=== PATIENT | male | born 1950 | race Caucasian/White ===

== ENCOUNTER 2016-03-15 08:06 | Emergency (ER) | payer BC ==
[2016-03-15 08:21] VITALS: BP 105/60
--- NOTE | 2016-03-15 08:28 | UC ---
Respiratory Complaint HPI - HPI Summary HPI Summary: The patient comes in today for: 1. Cough: Onset: 2 days ago. Palliative/provocative: Nothing makes the cough better or worse. Quality: Dry, harsh Region: Lungs. Severity: 7/10 Time: Cough lasts a few seconds. Associated symptoms: Chest pain: Only rib pain with cough. Sleep apnea: Present. Lung disease: None. Fevers: None. Cough production: None. Rhinitis: None. Dyspnea: Present. Wheezing: Present. Prednisone: He has been on this before, but he can't remember the dosing or strength. However, he remembers that it did not cause problems with his diabetes. 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 - Allergies/Home Medications Allergies/Adverse Reactions: Allergies Allergy/AdvReac Type Severity Reaction Status Date / Time Oxycodone [From Percocet] Allergy Severe Swelling Verified 03/15/16 08:09 Of Face,Lips,& Throat Home Medications: Home Medications Diltiazem HCl Coated Beads [Cartia Xt] 180 mg PO DAILY 03/15/16 [History Confirmed 03/15/16] Furosemide TAB* [Lasix TAB*] 40 mg PO DAILY 03/15/16 [History Confirmed 03/15/16 ] Metoprolol Tartrate TAB* [Lopressor TAB*] 50 mg PO BID 03/15/16 [History Confirmed 03/15/16] Ramipril CAP* [Altace CAP*] 2.5 mg PO DAILY 03/15/16 [History Confirmed 03/15/16 ] Warfarin TAB(*) [Coumadin TAB(*)] 5 mg PO QPM 03/15/16 [History Confirmed ] PMH/Surg Hx/FS Hx/Imm Hx Previously Healthy: No Endocrine History Of: Reports: Diabetes - Type II Denies: Thyroid Disease, Hyperthyroidism, Hypothyroidism, Dyslipidemia Cardiovascular History Of: Reports: Cardiac Disorders - CHF, but no hx of [place], angina, bypass or stents., Congestive Heart Failure, Atrial Fibrillation Denies: Hypertension, Pacemaker/ICD, Myocardial Infarction, Deep Vein Thrombosis, Bleeding Disorders Respiratory History Of: Reports: COPD - He was told that he had COPD, but lung specialist said no. Denies: Asthma, Bronchitis, Pneumonia, Pulmonary Embolism GI/ History Of: Denies: Gastroesophageal Reflux, Ulcer, Gastrointestinal Bleed, Gall Bladder Disease, Kidney Stones, Diverticulitis, Renal Disease, Urosepsis Neurological History Of: Denies: TIA, CVA, Dementia, Seizures, Migraine Psychological History Of: Denies: Anxiety, Depression, Bipolar Disorder, Schizophrenia, Post Traumatic Stress Disorder Cancer History Of: Denies: Lung Cancer, Colorectal Cancer, Breast Cancer, Prostate Cancer, Cervical Cancer Other History Of: Anticoagulant Therapy - Coumadin. Negative For: HIV, Hepatitis B, Hepatitis C - Surgical History Surgical History: Yes Surgery Procedure, Year, and Place: Both knees, L carpel tunnel, uvula removed, L foot - Family History Known Family History: Positive: Diabetes Negative: Cardiac Disease, Hypertension - Social History Occupation: Retired Lives: With Family Alcohol Use: None Substance Use Type: None Smoking Status (MU): Heavy Every Day Tobacco Smoker Type: Cigarettes Amount Used/How Often: 1/2 ppd Length of Time of Smoking/Using Tobacco: 40 + yrs Have You Smoked in the Last Year: Yes - Immunization History Most Recent Influenza Vaccination: 2016 Review of Systems Constitutional: Negative Skin: Negative Eyes: Negative ENT: Negative Respiratory: Cough Cardiovascular: Negative Gastrointestinal: Negative Genitourinary: Negative All Other Systems Reviewed And Are Negative: Yes Physical Exam Triage Information Reviewed: Yes Appearance: Well-Appearing, No Pain Distress, Well-Nourished, Obese Vital Signs: Initial Vital Signs Temp 99.5 F 03/15/16 08:16 Pulse 100 03/15/16 08:16 Resp 22 03/15/16 08:16 BP 105/60 03/15/16 08:16 Pulse Ox 96 03/15/16 08:16 Vital Signs Reviewed: Yes Eyes: Positive: Conjunctiva Clear. Negative: Discharge ENT: Positive: Hearing grossly normal. Negative: Pharyngeal erythema, Nasal congestion, Nasal drainage, TM bulging, TM dull, TM red, Tonsillar swelling, Tonsillar exudate Dental: Negative: Gross Decay/Caries @, Dental Fracture @ Neck: Positive: Supple, Nontender, No Lymphadenopathy. Negative: Nuchal Rigidity Respiratory: Positive: Chest non-tender, No accessory muscle use, Rhonchi, Wheezing Cardiovascular: Positive: RRR, No Murmur Abdomen Description: Positive: Nontender, No Organomegaly, Soft. Negative: Distended, Guarding Musculoskeletal: Positive: Strength Intact, ROM Intact Neurological: Positive: Alert, Muscle Tone Normal Psychological: Positive: Age Appropriate Behavior, Consolable Skin: Negative: rashes, breakdown UC Diagnostic Evaluation - Laboratory O2 Sat by Pulse Oximetry: 96 Re-Evaluation - Re-Evaluation First Eval Change: Improved - states that she thought he appeared better, but the patient did not think he had much improvement. Lungs still revealed generalized wheezing. Respiratory Course/Dx - Differential Dx/Diagnosis Provider Diagnoses: Viral upper respiratory infection with bronchospasm. Discharge - Discharge Plan Condition: Stable Disposition: HOME Patient Education Materials: Bronchospasm (ED), Upper Respiratory Infection (ED ) Referrals: Christopher Baird, DO [Primary Care Provider] - 1 Week (Please see your primary care provider early next week to see how well you are doing with your treatment. If you get worse, please go to the ER.)
[2016-03-15] MEDS ORDERED: Albuterol/Ipratropium NEB.SOL* Albuterol 2.5 MG/Ipratropium 0.5 MG 3 ML INH ONE (08:31)
== END 2016-03-15 09:14 | disposition home or self-care (01) ==
LOC: UCCORT 08:06
DX: J06.9 Acute upper respiratory infection, unspecified (principal); J44.9 Chronic obstructive pulmonary disease, unspecified; J45.909 Unspecified asthma, uncomplicated; F17.210 Nicotine dependence, cigarettes, uncomplicated; E11.9 Type 2 diabetes mellitus without complications
CPT/HCPCS: 99212; A9270-GY; G0463

== ENCOUNTER 2016-03-24 10:42 | Emergency (ER) | payer BC ==
[2016-03-24 12:01] VITALS: BP 128/52
--- NOTE | 2016-03-24 12:27 | UC ---
Respiratory Complaint HPI - HPI Summary HPI Summary: 65 Y/O MALE WITH PMHX OF SLEEP APNEA , ? COPD, OBESITY COUGH X 2 WEEKS, COUGH IS DRY , WAS SEEN HERE A THE URGENT CARE ABOUT 10 DAYS AGO , [place] WITH PREDNISONE , ALBUTEROL , NO IMPROVEMENT . CONT. 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 Negative: Fever, Chills, Pleuritic Chest Pain, Hemoptysis, Dizziness, Calf Pain, Calf Swelling, Edema - Allergies/Home Medications Allergies/Adverse Reactions: Allergies Allergy/AdvReac Type Severity Reaction Status Date / Time Oxycodone [From Percocet] Allergy Severe Swelling Verified 03/15/16 08:09 Of Face,Lips,& Throat PMH/Surg Hx/FS Hx/Imm Hx Endocrine History Of: Reports: Diabetes - Type II Denies: Thyroid Disease, Hyperthyroidism, Hypothyroidism, Dyslipidemia Cardiovascular History Of: Reports: Cardiac Disorders - CHF, but no hx of [place], angina, bypass or stents., Congestive Heart Failure, Atrial Fibrillation Denies: Hypertension, Pacemaker/ICD, Myocardial Infarction, Deep Vein Thrombosis, Bleeding Disorders Respiratory History Of: Reports: COPD - He was told that he had COPD, but lung specialist said no. Denies: Asthma, Bronchitis, Pneumonia, Pulmonary Embolism GI/ History Of: Denies: Gastroesophageal Reflux, Ulcer, Gastrointestinal Bleed, Gall Bladder Disease, Kidney Stones, Diverticulitis, Renal Disease, Urosepsis Neurological History Of: Denies: TIA, CVA, Dementia, Seizures, Migraine Psychological History Of: Denies: Anxiety, Depression, Bipolar Disorder, Schizophrenia, Post Traumatic Stress Disorder Cancer History Of: Denies: Lung Cancer, Colorectal Cancer, Breast Cancer, Prostate Cancer, Cervical Cancer Other History Of: Anticoagulant Therapy - Coumadin. Negative For: HIV, Hepatitis B, Hepatitis C - Surgical History Surgical History: Yes Surgery Procedure, Year, and Place: Both knees, L carpel tunnel, uvula removed, L foot - Family History Known Family History: Positive: Diabetes Negative: Cardiac Disease, Hypertension - Social History Alcohol Use: None Substance Use Type: None Smoking Status (MU): Light Every Day Tobacco Smoker Type: Cigarettes Amount Used/How Often: 1/2 ppd Length of Time of Smoking/Using Tobacco: 40 + yrs Have You Smoked in the Last Year: Yes - Immunization History Most Recent Influenza Vaccination: 2015 Review of Systems Constitutional: Negative Skin: Negative Eyes: Negative ENT: Nasal Discharge Respiratory: Shortness Of Breath, Cough Cardiovascular: Negative Gastrointestinal: Negative Genitourinary: Negative All Other Systems Reviewed And Are Negative: Yes Physical Exam Triage Information Reviewed: Yes Appearance: Well-Appearing, Obese Vital Signs: Initial Vital Signs Temp 99.6 F 03/24/16 11:51 Pulse 79 03/24/16 11:51 Resp 24 03/24/16 11:51 BP 128/52 03/24/16 11:51 Pulse Ox 93 03/24/16 11:51 Vital Signs Reviewed: Yes Eye Exam: Normal Eyes: Positive: Conjunctiva Clear ENT: Positive: Normal ENT inspection, Hearing grossly normal, Pharynx normal Neck: Positive: Supple, Nontender, No Lymphadenopathy Respiratory: Positive: Chest non-tender, No accessory muscle use, Rhonchi, Wheezing Cardiovascular: Positive: RRR, Murmur:Sys:Grade _?_/ - 2 Musculoskeletal Exam: Normal Skin Exam: Normal UC Diagnostic Evaluation - Laboratory O2 Sat by Pulse Oximetry: 93 Respiratory Course/Dx - Differential Dx/Diagnosis Provider Diagnoses: BRONCHITIS Discharge - Discharge Plan Condition: Stable Disposition: HOME Prescriptions: Amoxicillin/Clavulanate TAB* [Augmentin TAB 875*] 875 mg PO BID #20 tab Benzonatate CAP* [Tessalon CAP*] 100 mg PO TID PRN #30 cap PRN Reason: Cough Patient Education Materials: Acute Bronchitis (ED) Referrals: Christopher Baird DO [Primary Care Provider] - 7 Days
--- NOTE | 2016-03-24 12:44 | RAD ---
HISTORY: Cough, shortness of breath COMPARISONS: March 26, 2014 VIEWS: 2: Frontal dual-energy and lateral views of the chest. FINDINGS: CARDIOMEDIASTINAL SILHOUETTE: The cardiac silhouette is enlarged. The cardiomediastinal silhouette is otherwise normal. PAULA: The paula are normal. PLEURA: The costophrenic angles are sharp. No pleural abnormalities are noted. LUNG PARENCHYMA: There is prominence of the central pulmonary vasculature. ABDOMEN: The upper abdomen is clear. There is no subphrenic gas. BONES AND SOFT TISSUES: No bone or soft tissue abnormalities are noted. OTHER: None. IMPRESSION: CARDIOMEGALY WITH PULMONARY VASCULAR CONGESTION
== END 2016-03-24 12:59 | disposition home or self-care (01) ==
LOC: UCCORT 10:42
DX: J40 Bronchitis, not specified as acute or chronic (principal); E66.9 Obesity, unspecified; I51.7 Cardiomegaly; F17.210 Nicotine dependence, cigarettes, uncomplicated; Z88.5 Allergy status to narcotic agent
CPT/HCPCS: 71020; 99212; G0463

== ENCOUNTER 2016-07-09 19:32 | Emergency (ER) | payer BC ==
[2016-07-09 19:59] VITALS: BP 93/51
[2016-07-09] MEDS ORDERED: Gelfoam 12-7 ADSORBABL SPONGE* 1 EA SPONGE TOPICAL ONE (20:06)
--- NOTE | 2016-07-09 20:14 | UC ---
Laceration HPI - HPI Summary HPI Summary: While walking through screen door at home was pushed off balance by dog and injured L forearm on door latch. Pt is on coumadin, recent INR of 3+ - History Of Current Complaint Chief Complaint: UCLaceration Stated Complaint: LEFT ARM LACERATION Time Seen by Provider: 07/09/16 19:46 Hx Obtained From: Patient Laceration Location: Arm Mechanism Of Injury: Sharp Trauma Onset/Duration: Sudden Onset - Allergies/Home Medications Allergies/Adverse Reactions: Allergies Allergy/AdvReac Type Severity Reaction Status Date / Time Oxycodone [From Percocet] Allergy Severe Swelling Verified 07/09/16 19:46 Of Face,Lips,& Throat PMH/Surg Hx/FS Hx/Imm Hx Previously Healthy: Yes Other History Of: Anticoagulant Therapy - Coumadin. Negative For: HIV, Hepatitis B, Hepatitis C - Surgical History Surgical History: Yes Surgery Procedure, Year, and Place: Both knees, L carpel tunnel, uvula removed, L foot - Family History Known Family History: Positive: Diabetes Negative: Cardiac Disease, Hypertension - Social History Lives: With Family Alcohol Use: None Substance Use Type: None Smoking Status (MU): Light Every Day Tobacco Smoker Type: Cigarettes Amount Used/How Often: LESS THAN 1/2 PPD Length of Time of Smoking/Using Tobacco: 40 + yrs Have You Smoked in the Last Year: Yes - Immunization History Most Recent Influenza Vaccination: 2016 Most Recent Tetanus Shot: OVER 5 YEARS AOG Review of Systems Constitutional: Negative Skin: Other - L forearm abrasion Eyes: Negative ENT: Negative Respiratory: Shortness Of Breath - chronic COPD Cardiovascular: Negative Gastrointestinal: Negative Genitourinary: Negative Motor: Negative Neurovascular: Negative Musculoskeletal: Negative Neurological: Negative Psychological: Negative All Other Systems Reviewed And Are Negative: Yes Physical Exam Triage Information Reviewed: Yes Appearance: No Pain Distress, Obese Vital Signs: Initial Vital Signs Temp 98.5 F 07/09/16 19:51 Pulse 73 07/09/16 19:51 Resp 24 07/09/16 19:51 BP 93/51 07/09/16 19:51 Pulse Ox 84 07/09/16 19:51 Vital Signs Reviewed: Yes Eye Exam: Normal Eyes: Positive: Conjunctiva Clear ENT Exam: Normal ENT: Positive: Normal ENT inspection, Hearing grossly normal, Pharynx normal, TMs normal Dental Exam: Other - dentures Neck exam: Normal Neck: Positive: Supple Respiratory: Positive: Respiratory distress, Decreased breath sounds, Accessory muscle use Cardiovascular Exam: Normal Cardiovascular: Positive: RRR, No Murmur Musculoskeletal Exam: Normal Neurological Exam: Normal Neurological: Positive: Alert Psychological Exam: Normal Skin Exam: Other - superficial bleeding abrasion on L forearm Laceration Course/Dx - Differential Dx - Laceration/Wound Provider Diagnoses: L forearm abrasion. elevated INR Discharge - Discharge Plan Condition: Stable Disposition: HOME Patient Education Materials: Abrasion (ED) Referrals: Christopher Baird DO [Primary Care Provider] - Additional Instructions: You can keep the dressing on until Wednesday morning if you wish. Remove the gel foam by soaking with warm water, or simply wait until it falls off on its own.
== END 2016-07-09 20:49 | disposition home or self-care (01) ==
LOC: UCCORT 19:32
DX: S50.812A Abrasion of left forearm, initial encounter (principal); Y93.01 Activity, walking, marching and hiking; Y92.018 Other place in single-family (private) house as the place of occurrence of the external cause; Y99.9 Unspecified external cause status; R79.1 Abnormal coagulation profile; Z79.01 Long term (current) use of anticoagulants; J44.9 Chronic obstructive pulmonary disease, unspecified; Z72.0 Tobacco use
CPT/HCPCS: 99212; A9270-GY; G0463

== ENCOUNTER 2018-06-13 17:20 | Emergency (ER) | payer BC, MEDICARE ==
[2018-06-13 17:42] VITALS: BP 112/64
[2018-06-13] MEDS ORDERED: Ketorolac INJ* 60 MG/2 ML VIAL IM ONE (18:04)
--- NOTE | 2018-06-13 18:11 | UC ---
Back Pain HPI - HPI Summary HPI Summary: pt c/o pain in the R side of his low back for about 2 weeks. no hx injury. denies abdominal pain, fever, saddle anesthesia and numb/weakness to arms legs. also denies any cp or sob. - History of Current Complaint Chief Complaint: UCBackPain Stated Complaint: BACK PAIN Time Seen by Provider: 06/13/18 17:46 Hx Obtained From: Patient Pain Intensity: 10 Aggravating Factor(s): Movement Alleviating Factor(s): Rest Associated Signs And Symptoms: Negative: Fever, Weakness, Numbness, Tingling, Abdominal Pain, Flank Pain, Bladder Incontinence, Bowel Incontinence - Risk Factors Cauda Equina Risk Factors: Negative Epidural Abscess Risk Factors: Negative - Allergies/Home Medications Allergies/Adverse Reactions: Allergies Allergy/AdvReac Type Severity Reaction Status Date / Time Oxycodone [From Percocet] Allergy Severe Swelling Verified 06/13/18 17:42 Of Face,Lips,& Throat Home Medications: Home Medications Docusate Sodium [Dok] 100 mg PO BID 06/13/18 [History Confirmed 06/13/18] Fenofibrate,Micronized [Fenofibrate] 67 mg PO DAILY 06/13/18 [History Confirmed 06/13/18] Omeprazole 20 mg PO DAILY 06/13/18 [History Confirmed 06/13/18] PMH/Surg Hx/FS Hx/Imm Hx - Additional Past Medical History Additional PMH: anemia Endocrine History: Diabetes, Dyslipidemia Cardiovascular History: Congestive Heart Failure Respiratory History: COPD GI/ History: Gastroesophageal Reflux Other History Of: Anticoagulant Therapy - Coumadin. Negative For: HIV, Hepatitis B, Hepatitis C - Surgical History Surgical History: Yes Surgery Procedure, Year, and Place: Both knees, L carpel tunnel, uvula removed, L foot - Family History Known Family History: Positive: Diabetes Negative: Cardiac Disease, Hypertension - Social History Lives: With Family Alcohol Use: None Substance Use Type: None Smoking Status (MU): Light Every Day Tobacco Smoker Type: Cigarettes Amount Used/How Often: LESS THAN 1/2 PPD Length of Time of Smoking/Using Tobacco: 40 + yrs Have You Smoked in the Last Year: Yes - Immunization History Most Recent Influenza Vaccination: 2016 Most Recent Tetanus Shot: OVER 5 YEARS AOG Review of Systems All Other Systems Reviewed And Are Negative: Yes Constitutional: Negative: Fever Gastrointestinal: Negative: Abdominal Pain Motor: Positive: Decreased ROM - low back from pain Physical Exam Triage Information Reviewed: Yes Appearance: Well-Appearing Vital Signs: Initial Vital Signs Temp 97.2 F 06/13/18 17:36 Pulse 94 06/13/18 17:36 Resp 22 06/13/18 17:36 BP 112/64 06/13/18 17:36 Pulse Ox 97 06/13/18 17:36 Vital Signs Reviewed: Yes Eyes: Positive: Conjunctiva Clear ENT: Positive: Normal ENT inspection Neck: Positive: Supple, Nontender, No Lymphadenopathy, Other: - c-spine non tender. Respiratory: Positive: Lungs clear Cardiovascular: Positive: RRR, No Murmur, Pulses Normal Abdomen Description: Positive: Nontender, No Organomegaly, Soft. Negative: CVA Tenderness (R), CVA Tenderness (L), Distended, Guarding, Pulsatile Mass Bowel Sounds: Positive: Present Musculoskeletal: Positive: No Edema, Other: - Back: No acute rash but dry plaques to center of low back noted. spine is non tender. ROM limited by mm spasm in R low back. tender over R lower para spinal mm's. sciatic nothces are non tender. No saddle anesthesia. 5/5 strenght, 1+ reflex and sensation intact x4. slow steady gait. Neurological: Positive: Alert Psychological: Positive: Normal Response To Family, Age Appropriate Behavior Skin Exam: Normal, Other - chronic venous stasis pigment changes lower legs. Re-Evaluation - Re-Evaluation First Eval Re-Evaluation Time: 18:42 Change: Improved - able to cough without back spasm Back Pain Course/Dx - Differential Dx/Diagnosis Differential Diagnosis/HQI/PQRI: Other - non toxic. no acute abdomen. no concern for infection, cauda equina or fx. Provider Diagnosis: Low back pain Discharge - Sign-Out/Discharge Documenting (check all that apply): Patient Departure All imaging exams completed and their final reports reviewed: No Studies - Discharge Plan Condition: Stable Disposition: HOME Prescriptions: Cyclobenzaprine TAB* [Flexeril 10 MG TAB*] 10 mg PO TID PRN #10 tab PRN Reason: Spasms - Back Naproxen TAB* [Naprosyn 375 mg TAB*] 375 mg PO BID 3 Days #6 tab Patient Education Materials: Acute Low Back Pain (ED) Referrals: Kathia Chowdhury MD [Primary Care Provider] - 3 Days - Billing Disposition and Condition Condition: STABLE Disposition: Home
== END 2018-06-13 18:55 | disposition home or self-care (01) ==
LOC: UCCORT 17:20
DX: M54.5 Low back pain (principal); D64.9 Anemia, unspecified; E11.9 Type 2 diabetes mellitus without complications; E78.5 Hyperlipidemia, unspecified; I50.9 Heart failure, unspecified; K21.9 Gastro-esophageal reflux disease without esophagitis; F17.210 Nicotine dependence, cigarettes, uncomplicated; Z88.5 Allergy status to narcotic agent; Z79.01 Long term (current) use of anticoagulants
CPT/HCPCS: 96372; 99212; G0463; J1885

== ENCOUNTER 2018-09-24 12:23 | Emergency (ER) | payer BC, MEDICARE ==
--- OUTSIDE RECORDS SUMMARY | 2018-09-24 12:31 | XMS REPORT | Continuity of Care Document ---
:1950 External Reference #:[id number] Author Name Maggie Medel, MS, DATA ASSISTANT-C, CNM (transmitted by agent of provider Kathia Chowdhury) Address [address] [place] [id number] Care Team Providers Name Role Phone Kathia Chowdhury MD - Internal Medicine Care Team Information Care Worker Problems Active Problems Provider Date Acute diastolic heart failure Ousmane Mustafa MD Onset: 07/19/2015 Atrial flutter Ousmane Mustafa MD Onset: 07/19/2015 Paroxysmal atrial fibrillation Ousmane Mustafa MD Onset: 07/19/2015 Anemia Jessi Kc DO Onset: 09/07/2016 Iron deficiency Jessi Kc DO Onset: 09/07/2016 Combined systolic and diastolic Linda Lujan, MSN, 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 DATA ASSISTANT Aortic valve disorder Linda Lujan, MSN, Onset: 10/14/2016 DATA ASSISTANT Chronic kidney disease stage 3 Linda Lujan, MSN, Onset: 10/14/2016 DATA ASSISTANT Type 2 diabetes mellitus Kathia Chowdhury MD Onset: 01/25/2017 Hyperlipidemia Kathia Chowdhury MD Onset: 01/25/2017 Essential hypertension Kathia Chowdhury MD Onset: 01/25/2017 Arthralgia of the pelvic region and Araceli Aleman M.D. Onset: 03/04/2017 thigh Taking medication Araceli Aleman M.D. Onset: 03/04/2017 Cough Kathia Chowdhury MD Onset: 05/03/2017 Dietary management surveillance Kathia Chowdhury MD Onset: 05/03/2017 Morbid obesity Kathia Chowdhury MD Onset: 05/03/2017 Wheezing Kathia Chowdhury MD Onset: 05/03/2017 Mixed hyperlipidemia Kathia Chowdhury MD Onset: 05/03/2017 Malaise and fatigue Oncology Nurse Onset: 05/24/2017 Vitamin B deficiency Jessi Kc DO Onset: 07/30/2017 Vitamin D deficiency Jessi Kc DO Onset: 07/30/2017 Social History Type Date Description Comments Sex Unknown Cigarette Use Pack Years - 46 Smokeless Tobacco Never Used Smokeless Tobacco ETOH Use Rarely consumes alcohol Recreational Drug Use Never Used Drugs Tobacco Use Start: Unknown Heavy tobacco smoker (more than 10 cigarettes/day) Recreational Drug Use Denies Drug Use Smoking Status Reviewed: 09/16/18 Heavy tobacco smoker (more than 10 cigarettes/day) Exercise Type/Frequency Exercises rarely Allergies, Adverse Reactions, Alerts Active Allergies Reaction Severity Comments Date Aspirin 325mg GI upset 08/10/2014 Oxycodone dyspnea 08/10/2014 Medications Active Medications SIG Qnty Indications Ordering Date Provider Doxycycline take one twice a 20caps R05 Cuong Chowdhurya, 09/07/2018 Monohydrate day MD 100mg Capsules Glucose Testing To take blood 120units Cuong Chowdhurya, 08/26/2018 Strips, Fingerstick sugars fasting MD and 2 hrs after Strips meals E11.22 D-Care Glucometer To take blood 1units Cuong Chowdhurya, 08/24/2018 Kit/Glucose Test sugars fasting MD Strips and 2 hrs after w/Device Kit meals(breakfast, lunch, dinner) DX: E11.22 Lancet Device To take blood 120units Cuong Chowdhurya, 08/24/2018 Misc sugars fasting MD and 2 hrs after meals(breakfast, lunch, dinner) DX: E11.22 Lidocaine to be applied to 30units M54.5 Cuong Chowdhurya, 08/22/2018 5% Patches right side back MD for 12 hours a day Stool Softener Take One Capsule 180caps Cuong Chowduhrya, 07/12/2018 100mg By Mouth Twice A MD Capsules Day Cyclobenzaprine HCL take 1 tablet by 30tabs M54.5 [place], Kathia, 2018 10mg mouth two times a MD Tablets day as needed for muscle spasms Trulicity 0.75mg once a 6ml E11.22 Kathia Chowdhury, 06/02/2018 0.75mg/0.5ML week Solution Pen-Inject Ventolin HFA 1-2 puffs q6hr as 8gm Kathia Chowdhury, 07/30/2017 108(90Base) needed for SOB, mcg/Act Aerosol cough Novofine as directed 300units E11.22 Kathia Chowdhury, 04/02/2017 32G X 6 mm Misc (Seale) Torsemide 2 by mouth twice I50.32 Davidenko, 03/09/2017 20mg Tablets a day prn Oskar Parks M.D., FAC Metolazone 1 tab by mouth 30tabs I50.40 Linda Lujan 10/14/2016 2.5mg Tablets 1/2 hour prior to GEOFF Burleson, in the morning DATA ASSISTANT torsemide for weight gain of 2-3 over a day prn Bipap ipap: 16 epap: 12 G47.33 Varun Aranda, 09/03/2016 with oxygen at 3 MD L/min. Oxygen Continuous oxygen E66.2 Varun Aranda, 09/03/2016 at 3 L/min Potassium Chloride ER Take one Tablets 180tabs I50.31 Kathia Chowdhury, 04/13 By Mouth Every 10Meq Tablets ER other Day Cartia XT Take One Capsule 30caps Linda Lujan 07/24/2015 180mg Caps ER By Mouth Every GEOFF Burleson, 24HR Day DATA ASSISTANT [facility] Vitamin C 1 tab qd Unknown 1000mg Tablets Baby Aspir 1 by mouth every Unknown 81mg Tablets day DR Garcia 1 tab by mouth 90tabs Gagen, 4mg Tablets every day MS Maggie, DATA ASSISTANT-C, CNM [facility] D3 Once A Day , Unknown 2000Unit Capsules , sat, sun two a day wed Metoprolol Tartrate Take One Tablet 180tabs Ousmane Mustafa MD 50mg By Mouth Twice A Tablets Day Fenofibrate Micronized 1 by mouth every 30caps Kathia Chowdhury, day 67mg Capsules Ramipril take one capsule 90caps Cuong Chowdhurya, 2.5mg Capsules by mouth every MD day Levemir Flextouch Inject 60 Units 60ml TrentonKathia grande, AT Bedtime 100Unit/ML Solution Pen-Inject Vitamin B12 1 by mouth once a Unknown 1000mcg day Tablets ER History Medications Prednisone 2 tabs (40 mg) 10tabs R06.2 [place] Kathia, 09/07/2018 - 20mg Tablets daily for 5 days 09/16/2018 Fluticasone Propionate take one spray 1units J06.9 [place] Kathia, 2018 - Nasal [place] 24- Hour in each nostril 09/16/2018 in morning 50mcg/Act Suspension Naproxen Sodium Take one every 30tabs M54.5 [place], 06/17/2018 - 275mg 12 hrs for back 09/01/2018 Tablets pain Ergocalciferol 1 cap by mouth 2caps Yamini 06/10/2018 - [id number] every week DO Jessi Unknown Capsules Medications Administered in Office Medication SIG Qnty Indications Ordering Provider Date Vitamin B12 Injection 1000 Oncology Nurse 12/03/2017 mcg/Ml Injection Vitamin B12 Injection 1000 Jesis Kc DO 11/05/2017 mcg/Ml Injection Vitamin B12 Injection 1000 Yelitza Veloz NP 06/28/2017 mcg/Ml Injection Theraputic Or Diagnostic Yelitza Veloz NP 06/28/2017 Injection Injection Immunizations CPT Code Status Date Vaccine Lot # [id number] Given 06/02/2018 Pneumovax Injection [id number] Given 10/14/2017 Influenza High Dose [id number] Given 12/22/2016 Tdap injection [id number] Vital Signs Date Vital Result Comment 09/16/2018 9:23am BP Systolic Sitting Right Arm 112 mmHg BP Diastolic Sitting Right Arm 52 mmHg Body Temperature 98.3 F Heart Rate 72 /min Respiratory Rate 28 /min Height 69.5 inches 5'9.50", As per patient Weight 356.00 lb BMI (Body Mass Index) 51.8 kg/m2 BSA (Body Surface Area) 2.65 m2 Ora body weight in kilograms 74 kg O2 % BldC Oximetry 98 % Ra 09/07/2018 8:48am BP Systolic Sitting Right Arm 122 mmHg BP Diastolic Sitting Right Arm 62 mmHg Body Temperature 98.2 F Heart Rate 69 /min Respiratory Rate 24 /min Height 71 inches 5'11", As per patient Weight 370.00 lb BMI (Body Mass Index) 51.6 kg/m2 BSA (Body Surface Area) 2.74 m2 Ora body weight in kilograms 78 kg O2 % BldC Oximetry 96 % ra Results Test Date Facility Test Result H/L Range Note Glycohemoglobin A1c [facility] Glycohemoglobin 7.4 % High 4.2-6.3 1 , [address] (A1c) [place] [address] [phone] eAG 166 mg/dL Laboratory test 08/19/2018 [facility] Prostate 0.57 ng/mL < 4.0 [address] [place] [address] [phone] Hepatitis C Antibody < 0.1 s/corat 0.0-0.9 4 Basic Metabolic Panel 08/19/2018 [facility] Glucose 238 mg/dL High 74-[address] [place], [place] [id number] [phone] BUN 19 mg/dL High 7-18 Creatinine 1.3 mg/dL Normal 0.6-1.3 Glom Filtration Rate, Estimate 59 mL/min >60 If >60 mL/min >60 5 BUN/Creat 14.6 ratio Sodium 137 mmol/L Normal 136-145 Potassium 5.1 mmol/L Normal 3.5-5.1 Chloride 105 mmol/L Normal 98-107 Carbon Dioxide 24 mmol/L Normal 21-32 Anion Gap 8 mEq/L Normal 8-16 Calcium 9.1 mg/dL Normal 8.5-10.1 CBS W/Automated 07/22/2018 [facility] White Blood 7.5 K/uL Normal 3.4-10.5 [address] [place] [address] [phone] Red Blood Count 5.11 M/uL Normal 4.20-5.80 Hemoglobin 14.8 gm/dL Normal 12.8-17.0 Hematocrit 47.3 % Normal 38.0-48.0 Mean Cell Volume 92.6 fl Normal 80.0-96.0 Mean Corpuscular HGB 29.0 pg Normal 27.0-33.0 Mean Corpuscular HGB Conc 31.3 g/dL Low 31.7-36.0 Platelet Count 280 K/uL Normal 155-360 Red Cell Distri Width SD 48.1 fl Normal 36-51 Red Cell Distri Width %CV 14.3 % Normal 11.6-15.8 Mean Platelet Volume 11.3 fl High 6.6-10.6 Neut% 69.2 % Normal 33.0-73.0 Lymph % 15.7 % Low 20.0-42.0 Emanuel % 9.4 % Normal 0.0-10.0 Eo% 2.9 % Normal 0.0-6.6 Bas% 0.8 % Normal 0.0-1.1 Immature Grans 2.0 % Normal 0.0-5.0 NRBC % 0.0 /100WBC < 10/ 100 WBC Neut# 5.21 K/uL Normal 1.8-7.0 Lymph # 1.18 K/uL Normal 1.0-4.0 Emanuel # 0.71 K/uL Normal 0.0-0.8 Eos # 0.22 K/uL Normal 0.0-0.5 Baso # 0.06 K/uL Normal 0.0-0.1 Immature Grans Absolute 0.15 K/uL NRBC # 0.00 K/uL Comprehensive Metabolic 07/22/2018 [facility] Glucose 209 mg/dL High 74-106 Panel [address] [place] [address] [phone] BUN 27 mg/dL High 7-18 Creatinine 1.5 mg/dL High 0.6-1.3 Glom Filtration Rate, Estimate 50 mL/min >60 If 60 mL/min >60 7 BUN/Creat 18.0 ratio Sodium 138 mmol/L Normal 136-145 Potassium 5.5 mmol/L High 3.5-5.1 Chloride 103 mmol/L Normal 98-107 Carbon Dioxide 26 mmol/L Normal 21-32 Anion Gap 9 mEq/L Normal 8-16 Calcium 9.1 mg/dL Normal 8.5-10.1 Total Protein 7.4 g/dL Normal 6.4-8.2 Albumin 3.1 g/dL Low 3.4-5.0 Globulin 4.3 g/dL Normal 1.9-4.3 Alb/Glob 0.7 ratio Bilirubin,Total 0.4 mg/dL Normal 0.2-1.0 Sgot/Ast 27 U/L Normal 15-37 SGPT/Alt 32 U/L Normal 12-78 Alkaline Phosphatase 53 U/L Normal 45-117 Vitamin B12 And 07/22/2018 [facility] Vitamin B12 791 pg/mL Normal 193-[address] [place] [address] [phone] Folic Acid 12.2 ng/mL Normal 3.1-17.5 Laboratory 07/22/2018 [facility] Vitamin 28.6 Low 30.0-100.0 8 test finding [address] D,25-Hydroxy ng/[place] [address] [phone] Iron-Tibc-%Sat 07/22/2018 [facility] Serum Iron 75 Normal 65-[address] g/[place] [address] [phone] Total Iron Binding Capacity 334 g/dL Normal 250-450 Transferrin %Saturation 22 % Normal 12-57 Laboratory test 07/22/2018 [facility] Ferritin 112 ng/mL Normal 26-388 finding [address] [place] [address] [phone] Laboratory test 05/26/2018 [facility] Ferritin 112 ng/mL Normal 26-388 9 finding [address] [place] [address] [phone] Iron-Tibc-%Sat 05/26/2018 [facility] Serum Iron 79 g/dL Normal 65-175 [address] [place] [address] [phone] Total Iron Binding Capacity 352 g/dL Normal 250-450 Transferrin %Saturation 22 % Normal 12-57 Laboratory 05/26/2018 [facility] Vitamin 25.7 Low 30.0-100.0 10 test finding [address] D,25-Hydroxy ng/[place] [address] [phone] Vitamin B12 05/26/2018 [facility] Vitamin B12 836 Normal 193-[address] pg/[place] [address] [phone] Folic Acid 16.9 ng/mL Normal 3.1-17.5 Comprehensive Metabolic 05/26/2018 [facility] Glucose 190 mg/dL High 74-[address] [place] [address] [phone] BUN 21 mg/dL High 7-18 Creatinine 1.5 mg/dL High 0.6-1.3 Glom Filtration Rate, Estimate 50 mL/min >60 If 60 mL/min >60 11 BUN/Creat 14.0 ratio Sodium 139 mmol/L Normal 136-145 Potassium 5.3 mmol/L High 3.5-5.1 Chloride 107 mmol/L Normal 98-107 Carbon Dioxide 24 mmol/L Normal 21-32 Anion Gap 8 mEq/L Normal 8-16 Calcium 8.5 mg/dL Normal 8.5-10.1 Total Protein 7.5 g/dL Normal 6.4-8.2 Albumin 3.2 g/dL Low 3.4-5.0 Globulin 4.3 g/dL Normal 1.9-4.3 Alb/Glob 0.7 ratio Bilirubin,Total 0.3 mg/dL Normal 0.2-1.0 Sgot/Ast 33 U/L Normal 15-37 SGPT/Alt 31 U/L Normal 12-78 Alkaline Phosphatase 48 U/L Normal 45-117 CBS W/Automated 05/26/2018 [facility] White Blood 7.3 K/uL Normal 3.4-10.[address] [place] [address] [phone] Red Blood Count 5.24 M/uL Normal 4.20-5.80 Hemoglobin 15.1 gm/dL Normal 12.8-17.0 Hematocrit 48.4 % High 38.0-48.0 Mean Cell Volume 92.4 fl Normal 80.0-96.0 Mean Corpuscular HGB 28.8 pg Normal 27.0-33.0 Mean Corpuscular HGB Conc 31.2 g/dL Low 31.7-36.0 Platelet Count 279 K/uL Normal 155-360 Red Cell Distri Width SD 49.0 fl Normal 36-51 Red Cell Distri Width %CV 14.3 % Normal 11.6-15.8 Mean Platelet Volume 11.0 fl High 6.6-10.6 Neut% 71.8 % Normal 33.0-73.0 Lymph % 15.2 % Low 20.0-42.0 Emanuel % 8.2 % Normal 0.0-10.0 Eo% 3.1 % Normal 0.0-6.6 Bas% 0.7 % Normal 0.0-1.1 Immature Grans 1.0 % Normal 0.0-5.0 NRBC % 0.0 /100WBC < 10/ 100 WBC Neut# 5.25 K/uL Normal 1.8-7.0 Lymph # 1.11 K/uL Normal 1.0-4.0 Emanuel # 0.60 K/uL Normal 0.0-0.8 Eos # 0.23 K/uL Normal 0.0-0.5 Baso # 0.05 K/uL Normal 0.0-0.1 Immature Grans Absolute 0.07 K/uL NRBC # 0.00 K/uL LDL Cholesterol 05/26/2018 [facility] Cholesterol 129 mg/dL <200 12, [address] [place] [address] [phone] Triglycerides 222 mg/dL High <150 14 HDL Cholesterol 38 mg/dL Low >40 15 LDL-Cholesterol 47 mg/dL < 100 16 Glycohemoglobin 05/26/2018 [facility] Glycohemoglobin 7.5 % High 4.2-6.[address] (A1c) [place] [address] [phone] eAG 169 mg/dL CBS W/Automated 03/28/2018 [facility] White Blood 7.6 K/uL Normal 3.4-10.[address] [place] [address] [phone] Red Blood Count 5.02 M/uL Normal 4.20-5.80 Hemoglobin 14.3 gm/dL Normal 12.8-17.0 Hematocrit 45.5 % Normal 38.0-48.0 Mean Cell Volume 90.6 fl Normal 80.0-96.0 Mean Corpuscular HGB 28.5 pg Normal 27.0-33.0 Mean Corpuscular HGB Conc 31.4 g/dL Low 31.7-36.0 Platelet Count 271 K/uL Normal 155-360 Red Cell Distri Width SD 48.0 fl Normal 36-51 Red Cell Distri Width %CV 14.8 % Normal 11.6-15.8 Mean Platelet Volume 10.5 fL Normal 6.6-10.6 Neut% 72.7 % Normal 33.0-73.0 Lymph % 14.2 % Low 20.0-42.0 Emanuel % 9.4 % Normal 0.0-10.0 Eo% 3.3 % Normal 0.0-6.6 Bas% 0.4 % Normal 0.0-1.1 Neut# 5.55 K/uL Normal 1.8-7.0 Lymph # 1.08 K/uL Normal 1.0-4.0 Emanuel # 0.72 K/uL Normal 0.0-0.8 Eos # 0.25 K/uL Normal 0.0-0.5 Baso # 0.03 K/uL Normal 0.0-0.1 Comprehensive Metabolic 03/28/2018 [facility] Glucose 208 mg/dL High 74-106 Panel [address] [place] [address] [phone] BUN 22 mg/dL High 7-18 Creatinine 1.6 mg/dL High 0.6-1.3 Glom Filtration Rate, Estimate 46 mL/min >60 If 56 mL/min >60 18 BUN/Creat 13.7 ratio Sodium 138 mmol/L Normal 136-145 Potassium 5.2 mmol/L High 3.5-5.1 Chloride 106 mmol/L Normal 98-107 Carbon Dioxide 27 mmol/L Normal 21-32 Anion Gap 5 mEq/L Low 8-16 Calcium 8.5 mg/dL Normal 8.5-10.1 Total Protein 7.2 g/dL Normal 6.4-8.2 Albumin 3.0 g/dL Low 3.4-5.0 Globulin 4.2 g/dL Normal 1.9-4.3 Alb/Glob 0.7 ratio Bilirubin,Total 0.3 mg/dL Normal 0.2-1.0 Sgot/Ast 26 U/L Normal 15-37 SGPT/Alt 30 U/L Normal 12-78 Alkaline Phosphatase 50 U/L Normal 45-117 Vitamin B12 And 03/28/2018 [facility] Vitamin B12 643 pg/mL Normal 193-986 Folate [address] [place] [address] [phone] Folic Acid 16.6 ng/mL Normal 3.1-17.5 Laboratory 03/28/2018 [facility] Vitamin 25.2 Low 30.0-100.0 19 test finding [address],25-Hydroxy ng/[place] [address] [phone] Iron-Tibc-%Sa 03/28/2018 [facility] Serum Iron 67 Normal 65-[address] g/[place] [address] [phone] Total Iron Binding Capacity 338 g/dL Normal 250-450 Transferrin %Saturation 20 % Normal 12-57 Laboratory test 03/28/2018 [facility] Ferritin 95 ng/mL Normal 26-[address] [place] [address] [phone] Slide Review . 20 1 E55.9 E61.1 E53.9 Z00.00 Z12.5 Z11.59 2 Elevated levels of HbA1c suggest the need for more aggressive treatment of glycemia. The [place] [employer] Association recommends that a primary goal of therapy should be a HbA1c of <7% and that physicians should re-evaluate the treatment regimen in patients with HbA1c values consistently >8%. 3 THIS ASSAY IS NOT INTENDED A CANCER SCREENING TEST The concentration of PSA in a given specimen, determined with assays from different manufacturers, can vary due to differences in assay methods and reagent specificity. Values obtained from different assay methods cannot be used interchangeably. Method: [place] [employer] [place] Chemiluminescent immunoassay. 4 INFCE Result Units: s/co ratio Negative: < 0.8 Indeterminate: 0.8 - 0.9 Positive: > 0.9 The CDC recommends that a positive HCV antibody result be followed up with a HCV Nucleic Acid Amplification test ([id number]). Performed at: - [facility] [id number] Shuttle Route Vehicle Operator: Marissa Wick MD, Phone: [phone] Note: Persistent reduction for 3 months or more in an eGFR <60 mL/min/1.73 m2 defines CKD. Patients with eGFR values >/=60 mL/min/1.73 m2 may also have CKD if evidence of persistent proteinuria is present. The original MDRD equation for estimated GFR is not valid for patients less than 18 years of age. Additional information may be found at www.kdoqi.org. 6 D64.9 E61.1 7 Note: Persistent reduction for 3 months or more in an eGFR <60 mL/min/1.73 m2 defines CKD. Patients with eGFR values >/=60 mL/min/1.73 m2 may also have CKD if evidence of persistent proteinuria is present. The original MDRD equation for estimated GFR is not valid for patients less than 18 years of age. Additional information may be found at www.kdoqi.org. 8 Vitamin D deficiency has been defined by the [place] [employer] and an Endocrine Society practice guideline as a level of serum 25-OH vitamin D less than 20 ng/mL (1,2). The Endocrine Society went on to further define vitamin D insufficiency as a level between 21 and 29 ng/mL (2). 1. IOM ([place] [employer]). 2010. Dietary reference intakes for calcium and D. [place]: The National Academies Press. 2. Shivani Lundy, Loc LAWRENCE, et al. Evaluation, treatment, and prevention of vitamin D deficiency: an Endocrine Society clinical practice guideline. JCEM. 2010; 96(7):1911-30. Performed at: - [facility] [address] [id number] Shuttle Route Vehicle Operator: Marissa Wick MD, Phone: [phone] D64.9 E61.1 D64.9 E61.1 I10 E78.2 10 Vitamin D deficiency has been defined by the [place] [employer] and an Endocrine Society practice guideline as a level of serum 25-OH vitamin D less than 20 ng/mL (1,2). The Endocrine Society went on to further define vitamin D insufficiency as a level between 21 and 29 ng/mL (2). 1. IOM ([place] [employer]). 2010. Dietary reference intakes for calcium and D. [place]: The National Academies Press. 2. Shivani Lundy, Loc LAWRENCE, et al. Evaluation, treatment, and prevention of vitamin D deficiency: an Endocrine Society clinical practice guideline. JCEM. 2010; 96(7):1911-30. Performed at: [facility] [id number] Shuttle Route Vehicle Operator: Marissa Wick MD, Phone: [phone] Note: Persistent reduction for 3 months or more in an eGFR <60 mL/min/1.73 m2 defines CKD. Patients with eGFR values >/=60 mL/min/1.73 m2 may also have CKD if evidence of persistent proteinuria is present. The original MDRD equation for estimated GFR is not valid for patients less than 18 years of age. Additional information may be found at www.kdoqi.org. 12 D64.9 E61.1 13 Reference Guidelines*: Desirable: ........... < 200 mg/dL Borderline High: ..... 200-239 mg/dL High: ................ >= 240 mg/dL * The National Cholesterol Education Program (NCEP) 14 Reference Guidelines*: Normal: ............. < 150 mg/dL Borderline High: .... 150-199 mg/dL High: ............... 200-499 mg/dL Very High: .......... > 500 mg/dL * Source: National Cholesterol Education Program (NCEP) 15 Reference Guidelines*: Low HDL: ..... < 40 mg/dL Normal: ..... 40-60 mg/dL Desirable: ... > 60 mg/dL *The National Cholesterol Education Program(NCEP) 16 Reference Guidelines*: Optimal:........... <100 mg/dL Near Optimal....... 100-129 mg/dL Borderline High.... 130-159 mg/dL High............... 160-189 mg/dL Very High.......... >=190 mg/dL * Source: National Cholesterol Education Program (NCEP) 17 Elevated levels of HbA1c suggest the need for more aggressive treatment of glycemia. The [place] Diabetes Association recommends that a primary goal of therapy should be a HbA1c of <7% and that physicians should re-evaluate the treatment regimen in patients with HbA1c values consistently >8%. 18 Note: Persistent reduction for 3 months or more in an eGFR <60 mL/min/1.73 m2 defines CKD. Patients with eGFR values >/=60 mL/min/1.73 m2 may also have CKD if evidence of persistent proteinuria is present. The original MDRD equation for estimated GFR is not valid for patients less than 18 years of age. Additional information may be found at www.kdoqi.org. 19 Vitamin D deficiency has been defined by the [place] [employer] and an Endocrine Society practice guideline as a level of serum 25-OH vitamin D less than 20 ng/mL (1,2). The Endocrine Society went on to further define vitamin D insufficiency as a level between 21 and 29 ng/mL (2). 1. IOM ([place] [employer]). 2010. Dietary reference intakes for calcium and D. [place]: The National Academies Press. 2. Ziyad MF, Shivani [place], Loc LAWRENCE, et al. Evaluation, treatment, and prevention of vitamin D deficiency: an Endocrine Society clinical practice guideline. JCEM. 2010; 96(7):1911-30. Performed at: RN - [facility] [address] [id number] Shuttle Route Vehicle Operator: Marissa Wick MD, Phone: [phone] Instrument flagged sample for slide review. Less than 10% Bands seen, no other immature WBC's seen. RBC morphology essentially normal. Platelet estimate = NORMAL Procedures Date Code Description Status 09/07/2018 90052 Pressurized/Non-Pressurized Inhalation Treatment,Acute Completed Obstructio 09/02/2018 56333 Pulse Oximetry With Activity Completed 08/08/2018 73309 Debridement Nails Any Method 1-5 Completed 08/08/2018 96038 Trim Nondystrophic Nails Completed 05/24/2018 73815 Debridement Nails Any Method 6 Or More Completed 01/08/2018 [id number] Diabetic Foot Exam Completed 01/11/2017 [id number] Flexible Sigmoidoscopy Completed 01/23/2016 [id number] Colonoscopy Completed 05/29/2005 [id number] Colonoscopy Completed Medical Devices Description No Information Available Encounters Type Date Location Provider Dx Diagnosis Office Visit 09/07/2018 9:00a Primary Care Office Maggie Meedl, Roger5 Cough MS, DATA ASSISTANT-C, CNM E11.22 Type 2 diabetes mellitus w diabetic chronic kidney disease R06.2 Wheezing J06.9 Acute upper respiratory infection, unspecified R06.02 Shortness of breath E66.01 Morbid (severe) obesity due to excess calories Z71.6 Tobacco abuse counseling Office Visit 09/02/2018 9:00a Pulmonology KendyDevora gonzales, G47.33 Obstructive sleep PA apnea (adult) (pediatric) J96.11 Chronic respiratory failure with hypoxia Z68.43 Body mass index (BMI) 50.0-59.9, adult Z71.6 Tobacco abuse counseling F17.210 Nicotine dependence, cigarettes, uncomplicated Office Visit 09/01/2018 10:20a Primary Care Kathia Chowdhury, E11.22 Type 2 diabetes Office MD mellitus w diabetic chronic kidney disease N18.3 Chronic kidney disease, stage 3 (moderate) E78.2 Mixed hyperlipidemia I10 Essential (primary) hypertension M54.5 Low back pain Office Visit 08/22/2018 9:30a Primary Care Maggie Medel M54.5 Low back Office MS, DATA ASSISTANT-C, CNM pain E11.22 Type 2 diabetes mellitus w diabetic chronic kidney disease Z11.59 Encounter for screening for other viral diseases Z12.5 Encounter for screening for malignant neoplasm of prostate Office Visit 08/08/2018 8:00a Podiatry Office Constantine Vann, E11.9 Type 2 diabetes DPM mellitus without complications 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 calories K42.9 Umbilical hernia without obstruction or gangrene Z72.0 Tobacco use Office Visit 06/17/2018 10:30a Primary Care Maggie Medel M54.5 Low back Office MS, DATA ASSISTANT-C, CNM pain E66.09 Other obesity due to excess calories Z71.6 Tobacco abuse counseling Office Visit 06/10/2018 8:00a Oncology Office Yamini, E61.1 Iron deficiency DO Jessi E53.9 Vitamin B deficiency, unspecified E55.9 Vitamin D deficiency, unspecified Office Visit 04/04/2018 8:30a Oncology Office Yamini E61.1 Iron deficiency DO Jessi E53.9 Vitamin B deficiency, unspecified E55.9 Vitamin D deficiency, unspecified D64.9 Anemia, unspecified Assessments Date Code Description Provider 09/16/2018 E11.22 Type 2 diabetes mellitus with Maggie Medel, MS, DATA ASSISTANT-C , diabetic chronic kidney diseas [facility] 09/16/2018 R05 Cough Lizy, Maggie, MS, DATA ASSISTANT-C, CN 09/16/2018 R06.2 Wheezing Maggie Medel, MS, DATA ASSISTANT-C, CN 09/16/2018 J06.9 Acute upper respiratory infection, Maggie Medel, MS, DATA ASSISTANT-C, unspecified CN 09/16/2018 R06.02 Shortness of breath Maggie Medel, MS, DATA ASSISTANT-C, [facility] 09/16/2018 R63.4 Abnormal weight loss Maggie Medel, MS, DATA ASSISTANT-C, [facility] 09/07/2018 R05 Cough Lizy, Maggie, MS, DATA ASSISTANT-C, [facility] 09/07/2018 E11.22 Type 2 diabetes mellitus with Maggie Medel, MS, DATA ASSISTANT-C , diabetic chronic kidney diseas [facility] 09/07/2018 R06.2 Wheezing Maggie Medel, MS, DATA ASSISTANT-C, [facility] 09/07/2018 J06.9 Acute upper respiratory infection, Maggie Medel, MS, DATA ASSISTANT-C, unspecified [facility] 09/07/2018 R06.02 Shortness of breath Maggie Medel, MS, DATA ASSISTANT-C, [facility] 09/07/2018 E66.01 Morbid (severe) obesity due to Maggie Medel, MS, DATA ASSISTANT- C, excess calories [facility] 09/07/2018 Z71.6 Tobacco abuse counseling Maggie Medel, MS, DATA ASSISTANT-C, [facility] 09/02/2018 G47.33 Obstructive sleep apnea (adult) Devora Dawson PA (pediatric) 09/02/2018 J96.11 Chronic respiratory failure with Devora Dawson PA hypoxia 09/02/2018 Z68.43 Body mass index (BMI) 50-59.9, Devora Dawson PA adult 09/02/2018 Z71.6 Tobacco abuse counseling Devora Dawson PA 09/02/2018 F17.210 Nicotine dependence, cigarettes, Devora Dawson PA uncomplicated 09/01/2018 E11.22 Type 2 diabetes mellitus with Kathia Chowdhury MD diabetic chronic kidney diseas 09/01/2018 N18.3 Chronic kidney disease, stage 3 Kathia Chowdhury MD (moderate) 09/01/2018 E78.2 Mixed hyperlipidemia Kathia Chowdhury MD 09/01/2018 I10 Essential (primary) hypertension Kathia Chowdhury MD 09/01/2018 M54.5 Low back pain Kathia Chowdhury MD 08/22/2018 M54.5 Low back pain Gagen, Maggie, MS, DATA ASSISTANT-C, [facility] 08/22/2018 E11.22 Type 2 diabetes mellitus with Gagen, Maggie, MS, DATA ASSISTANT-C , diabetic chronic kidney diseas [facility] 08/22/2018 Z11.59 Encounter for screening for other Gagkristin, Maggie, MS, DATA ASSISTANT-C, viral diseases [facility] 08/22/2018 Z12.5 Encounter for screening for Gagen, Maggie, MS, DATA ASSISTANT-C, malignant neoplasm of prostate [facility] 08/19/2018 E55.9 Vitamin D deficiency, unspecified Jessi Kc, DO 08/19/2018 E55.9 Vitamin D deficiency, unspecified Oncology Nurse 08/19/2018 E61.1 Iron deficiency Jesis Kc, DO 08/19/2018 E61.1 Iron deficiency Oncology Nurse 08/19/2018 E53.9 Vitamin B deficiency, unspecified Jessi Kc, DO 08/19/2018 E53.9 Vitamin B deficiency, unspecified Oncology Nurse 08/09/2018 E66.09 Other obesity due to excess Gagkristin, Maggie, MS, DATA ASSISTANT-C, calories [facility] 08/09/2018 Z72.0 Tobacco use Gagen, Maggie, MS, DATA ASSISTANT-C, [facility] 08/09/2018 M54.5 Low back pain Gagen, Maggie, MS, DATA ASSISTANT-C, CNM 08/09/2018 E55.9 Vitamin D deficiency, unspecified Gagen, Maggie, MS, DATA ASSISTANT-C, [facility] 08/09/2018 N18.3 Chronic kidney disease, stage 3 Gagen, Maggie, , DATA ASSISTANT- C, (moderate) CNM 08/08/2018 E11.9 Type 2 diabetes mellitus without Constantine Vann, [place] complications 08/08/2018 I70.203 Unspecified atherosclerosis of Constantine Vann, DPDaisy [place] arteries of extremities, bilateral legs 08/08/2018 B35.1 Tinea unguium Constantine Vann, DP 08/08/2018 S90.811A Abrasion, right foot, initial Constantine Vann, DP encounter 08/08/2018 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 07/07/2018 K42.9 Umbilical hernia without [place] Wong, obstruction or gangrene M.D. 07/07/2018 Z72.0 Tobacco use South Wong M.D. 06/17/2018 M54.5 Low back pain Maggie Medel MS, DATA ASSISTANT-C, [facility] 06/17/2018 E66.09 Other obesity due to excess Maggie Medel, MS, DATA ASSISTANT-C, calories [facility] 06/17/2018 Z71.6 Tobacco abuse counseling Maggie Medel, MS, DATA ASSISTANT-C, CN 06/10/2018 E61.1 Iron deficiency Jessi Kc, DO 06/10/2018 E53.9 Vitamin B deficiency, unspecified Jessi Kc, DO 06/10/2018 E55.9 Vitamin D deficiency, unspecified Jessi Kc, DO 06/02/2018 Z00.00 Encounter for general adult medical Kathia Chowdhury MD examination without abno 06/02/2018 E11.22 Type 2 diabetes mellitus with Kathia Chowdhury MD diabetic chronic kidney diseas 06/02/2018 I10 Essential (primary) hypertension Kathia Chowdhury MD 06/02/2018 K42.9 Umbilical hernia without Kathia Chowdhury MD obstruction or gangrene 06/02/2018 E78.2 Mixed hyperlipidemia Kathia Chowdhury MD 06/02/2018 N18.3 Chronic kidney disease, stage 3 Kathia Chowdhury MD (moderate) 06/02/2018 Z11.59 Encounter for screening for other Kathia Chowdhury MD viral diseases 06/02/2018 Z23 Encounter for immunization Kathia Chowdhury MD 05/26/2018 D64.9 Anemia, unspecified Borebeccaal, Jessi, DO 05/26/2018 D64.9 Anemia, unspecified Oncology Nurse 05/26/2018 E61.1 Iron deficiency Lizzette Kcaret, DO 05/26/2018 E61.1 Iron deficiency Oncology Nurse 05/24/2018 I70.203 Unspecified atherosclerosis of Constantine Vann, [place] arteries of extremitie 05/24/2018 E11.9 Type 2 diabetes mellitus without Constantine Vann DPM complications 05/24/2018 B35.1 Tinea unguium Constantine Vann, [place] 04/04/2018 E61.1 Iron deficiency Lizzette Kcaret, DO 04/04/2018 E53.9 Vitamin B deficiency, unspecified Borebeccaal, Jessi, DO 04/04/2018 E55.9 Vitamin D deficiency, unspecified Boufal, Jessi, DO 04/04/2018 D64.9 Anemia, unspecified Boufal, Jessi, DO 03/28/2018 D64.9 Anemia, unspecified Boufal, Jessi, DO 03/28/2018 D64.9 Anemia, unspecified Oncology Nurse 03/28/2018 E61.1 Iron deficiency BhavinalLizzetteJessi, DO 03/28/2018 E61.1 Iron deficiency Oncology Nurse Plan of Treatment Future Appointment(s):09/05/2019 9:00 am - Devora Dawson PA at [id number]/ 30/2019 8:30 am - Maggie Medel MS, DATA ASSISTANT-C, CNM at Primary Care [id number] 8:00 am - Jessi Kc DO at Oncology [id number]/28/2018 8:00 am - Oncology Nurse at Oncology Office Functional Status Functional Condition Comment Date Status Oxygen Active Independent with all ADL's Active bipap Active Glasses Active Mental Status Description No Information Available Referrals Refer to Reason for Referral Status Appt Date [place] Wong MD Umbilical hernia, painless Has large Closed 07/07 abdomen. Evaluate if surgical candidate, advised patient that given body habitus and medical conditions surgery may not be option Dr. Wong only [id number] [id number] [phone]
--- OUTSIDE RECORDS SUMMARY | 2018-09-24 12:32 | XMS REPORT | Continuity of Care Document ---
:1950 External Reference #:[id number] Author Name Devora Dawson PA (transmitted by agent of provider Maggie Medel) Address [address] [place] [address] Care Team Providers Name Role Phone Kathia Chowdhury MD - Internal Medicine Care Team Information Hydrogenation Still Operator [phone] Problems Active Problems Provider Date Acute diastolic heart failure Ousmane Mustafa MD Onset: 07/19/2015 Atrial flutter Ousmane Mustafa MD Onset: 07/19/2015 Paroxysmal atrial fibrillation Ousmane Mustafa MD Onset: 07/19/2015 Anemia Jessi Kc DO Onset: 09/07/2016 Iron deficiency Jessi Kc DO Onset: 09/07/2016 Combined systolic and diastolic Linda Lujan, MSN, 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 DIRECTOR OF BLOOD Aortic valve disorder Linda Lujan, MSN, Onset: 10/14/2016 DIRECTOR OF BLOOD Chronic kidney disease stage 3 Linda Lujan, MSN, Onset: 10/14/2016 DIRECTOR OF BLOOD Type 2 diabetes mellitus Kathia Chowdhury MD [...] Use Denies Drug Use Smoking Status Reviewed: 09/07/18 Heavy tobacco smoker (more than 10 cigarettes/day) Exercise Type/Frequency Exercises rarely Allergies, Adverse Reactions, Alerts Active Allergies Reaction Severity Comments Date Aspirin 325mg GI upset 08/10/2014 Oxycodone dyspnea 08/10/2014 Medications Active Medications SIG Qnty Indications Ordering Date Provider Prednisone 2 tabs (40 mg) 10tabs R06.2 Kathia Chowdhury, 09/07/2018 20mg Tablets daily for 5 days Doxycycline take one twice a 20caps R05 Kathia Chowdhury, 09/07/2018 Monohydrate day MD 100mg Capsules Fluticasone Propionate take one spray in 1units J06.9 Kathia Chowdhury, 09/07 Nasal [place] 24- Hour each nostril in MD morning 50mcg/Act Suspension Glucose Testing To take blood 120units Kathia Chowdhury, 08/26/2018 Strips, Fingerstick sugars fasting MD and 2 hrs after Strips meals E11.22 D-Care Glucometer To take blood 1units Kathia Chowdhury, 08/24/2018 Kit/Glucose Test sugars fasting Strips and 2 hrs after w/Device Kit meals(breakfast, lunch, dinner) DX: E11.22 Lancet Device To take blood 120units Kathia Chowdhury, 08/24/2018 Misc sugars fasting and 2 hrs after meals(breakfast, lunch, dinner) DX: E11.22 Lidocaine to be applied to 30units M54.5 Kathia Chowdhury, 08/22/2018 5% Patches right side back MD for 12 hours a day Stool Softener Take One Capsule 180caps Cuong Chowdhurya, 07/12/2018 100mg By Mouth Twice A MD Capsules Day Cyclobenzaprine HCL take 1 tablet by 30tabs M54.5 Cuong Chowdhurya, 2018 10mg mouth two times a MD Tablets day as needed for muscle spasms Trulicity 0.75mg once a 6ml E11.22 Cuong Chowdhurya, 06/02/2018 0.75mg/0.5ML week Solution Pen-Inject Ventolin HFA 1-2 puffs q6hr as 8gm Cuong Chowdhurya, 07/30/2017 108(90Base) needed for SOB, mcg/Act Aerosol cough Novofine as directed 300units E11.22 Kathia Chowdhury, 04/02/2017 32G X 6 mm Misc ([place]) Torsemide 2 by mouth twice I50.32 [place], 03/09/2017 20mg Tablets a day prn Oskar Parks M.D., FACC Metolazone 1 tab by mouth 30tabs I50.40 Linda Lujan 10/14/2016 2.5mg Tablets 1/2 hour prior to Benjy, GEOFF, in the morning DIRECTOR OF BLOOD torsemide for weight gain of 2-3 over a day prn Oxygen Continuous oxygen E66.2 Varun Aranda, 09/03/2016 at 3 L/min Bipap ipap: 16 epap: 12 G47.33 Varun Aranda, 09/03/2016 with oxygen at 3 MD L/min. Potassium Chloride ER Take one Tablets 180tabs I50.31 Kathia Chowdhury, 04/13 By Mouth Every 10Meq Tablets ER other Day Cartia XT Take One Capsule 30caps Lujan, Linda 07/24/2015 180mg Caps ER By Mouth Every Benjy, GEOFF, 24HR Day DIRECTOR OF BLOOD [facility] Vitamin C 1 tab qd Unknown 1000mg Tablets Baby Aspir 1 by mouth every Unknown 81mg Tablets day DR [place] 1 tab by mouth 90tabs Gagen, 4mg Tablets every day Maggie, , DIRECTOR OF BLOOD-C, CNM [facility] D3 Once A Day , Unknown 2000Unit Capsules , sat, sun two a day wed Metoprolol Tartrate Take One Tablet 180tabs Ousmane Mustafa MD 50mg By Mouth Twice A Tablets Day Fenofibrate Micronized 1 by mouth every 30caps [place], Kathia, day 67mg Capsules Ramipril take one capsule 90caps [place], Kathia, 2.5mg Capsules by mouth every MD day Levemir Flextouch Inject 60 Units 60ml Kathia Chowdhury, AT Bedtime 100Unit/ML Solution Pen-Inject Vitamin B12 1 by mouth once a Unknown 1000mcg day Tablets ER History Medications Naproxen Sodium Take one every 30tabs M54.5 Kathia Chowdhury, 06/17/2018 - 275mg 12 hrs for 09/01/2018 Tablets back pain Ergocalciferol 1 cap by mouth 2caps Yamini, 06/10/2018 - 90521Smbv every week DO Jessi Unknown Capsules Medications Administered in Office Medication SIG Qnty Indications Ordering Provider Date Vitamin B12 Injection 1000 Oncology Nurse 12/03/2017 mcg/Ml Injection Vitamin B12 Injection 1000 Jessi Kc DO 11/05/2017 mcg/Ml Injection Vitamin B12 Injection 1000 Yelitza Veloz NP 06/28/2017 mcg/Ml Injection Theraputic Or Diagnostic Yelitza Veloz NP 06/28/2017 Injection Injection Immunizations CPT Code Status Date Vaccine Lot # [id number] Given 06/02/2018 Pneumovax Injection [id number] Given 10/14/2017 Influenza High Dose [id number] Given 12/22/2016 Tdap injection [id number] Vital Signs Date Vital Result Comment 09/07/2018 8:48am BP Systolic Sitting Right Arm 122 mmHg BP Diastolic Sitting Right Arm 62 mmHg Body Temperature 98.2 F Heart Rate 69 /min Respiratory Rate 24 /min Height 71 inches 5'11", As per patient Weight 370.00 lb BMI (Body Mass Index) 51.6 kg/m2 BSA (Body Surface Area) 2.74 m2 [place] body weight in kilograms 78 kg O2 % BldC Oximetry 96 % ra 09/02/2018 9:04am BP Systolic Sitting Right Arm 130 mmHg BP Diastolic Sitting Right Arm 62 mmHg Heart Rate 94 /min Respiratory Rate 24 /min Height 71 inches 5'11", As per patient Weight 369.00 lb BMI (Body Mass Index) 51.5 kg/m2 BSA (Body Surface Area) 2.74 m2 [place] body weight in kilograms 78 kg O2 % BldC Oximetry 93 % Abulatory Ra:88, 2L restin, 2L abulatory:93 Results Test Date Facility Test Result H/L Range Note Glycohemoglobin A1c [facility] Glycohemoglobin 7.4 % High 4.2-6.3 1 , [address] (A1c) [place], [place] [id number] [phone] eAG 166 mg/dL Laboratory test 08/19/2018 [facility] Prostate 0.57 ng/mL < 4.0 [address] [place] [place] [address] [phone] Hepatitis C Antibody < 0.1 s/corat 0.0-0.9 4 Basic Metabolic Panel 08/19/2018 [facility] Glucose 238 mg/dL High 74-[address] [place] [address] [phone] BUN 19 mg/dL High 7-18 Creatinine 1.3 mg/dL Normal 0.6-1.3 Glom Filtration Rate, Estimate 59 mL/min >60 If >60 mL/min >60 5 BUN/Creat 14.6 ratio Sodium 137 mmol/L Normal 136-145 Potassium 5.1 mmol/L Normal 3.5-5.1 Chloride 105 mmol/L Normal 98-107 Carbon Dioxide 24 mmol/L Normal 21-32 Anion Gap 8 mEq/L Normal 8-16 Calcium 9.1 mg/dL Normal 8.5-10.1 CBS W/Automated 07/22/2018 [facility] White Blood 7.5 K/uL Normal 3.4-10.5 [address] [place] [address] [phone] Red Blood Count 5.11 M/uL Normal 4.20-5.80 [...] 33.0-73.0 Lymph % 15.7 % Low 20.0-42.0 [place] % 9.4 % Normal 0.0-10.0 Eo% 2.9 % Normal 0.0-6.6 Bas% 0.8 % Normal 0.0-1.1 Immature Grans 2.0 % Normal 0.0-5.0 NRBC % 0.0 /100WBC < 10/ 100 WBC Neut# 5.21 K/uL Normal 1.8-7.0 Lymph # 1.18 K/uL Normal 1.0-4.0 [place] # 0.71 K/uL Normal 0.0-0.8 Eos # 0.22 K/uL Normal 0.0-0.5 Baso # 0.06 K/uL Normal 0.0-0.1 Immature Grans Absolute 0.15 K/uL NRBC # 0.00 K/uL Comprehensive Metabolic 07/22/2018 [facility] Glucose 209 mg/dL High 74-106 Panel [address] [place] [address] [phone] BUN 27 mg/dL High 7-18 Creatinine 1.5 [...] pg/mL Normal 193-[address] [place] [address] [phone] Folic Acid 12.2 ng/mL Normal 3.1-17.5 Laboratory 07/22/2018 [facility] Vitamin 28.6 Low 30.0-100.0 8 test finding [address] D,25-Hydroxy ng/[place] [address] [phone] Iron-Tibc-%Sat 07/22/2018 [facility] Serum Iron 75 Normal 65-[address] g/[place] [address] [phone] Total Iron Binding Capacity 334 g/dL Normal 250-450 Transferrin %Saturation 22 % Normal 12-57 Laboratory test 07/22/2018 [facility] Ferritin 112 ng/mL Normal 26-[address] [place] [address] [phone] Laboratory test 05/26/2018 [facility] Ferritin 112 ng/mL Normal 26-388 9 finding [address] [place] [address] [phone] Iron-Tibc-%Sat 05/26/2018 [facility] Serum Iron 79 g/dL Normal 65-175 [address] [place] [address] [phone] Total Iron Binding Capacity 352 g/dL Normal 250-450 Transferrin %Saturation 22 % Normal 12-57 Laboratory 05/26/2018 [facility] Vitamin 25.7 Low 30.0-100.0 10 test finding [address] D,25-Hydroxy ng/[place] [address] [phone] Vitamin B12 05/26/2018 [facility] Vitamin B12 836 Normal 193-[address] pg/[place] [address] [phone] Folic Acid 16.9 ng/mL Normal 3.1-17.5 Comprehensive Metabolic 05/26/2018 [facility] Glucose 190 mg/dL High 74-[address] [place] [address] [phone] BUN 21 mg/dL High 7-18 Creatinine 1.5 [...] 48 U/L Normal 45-117 CBS W/Automated 05/26/2018 [facility] White Blood 7.3 K/uL Normal 3.4-10.[address] [place] [address] [phone] Red Blood Count 5.24 M/uL Normal 4.20-5.80 [...] 33.0-73.0 Lymph % 15.2 % Low 20.0-42.0 [place] % 8.2 % Normal 0.0-10.0 Eo% 3.1 % Normal 0.0-6.6 Bas% 0.7 % Normal 0.0-1.1 Immature Grans 1.0 % Normal 0.0-5.0 NRBC % 0.0 /100WBC < 10/ 100 WBC Neut# 5.25 K/uL Normal 1.8-7.0 Lymph # 1.11 K/uL Normal 1.0-4.0 [place] # 0.60 K/uL Normal 0.0-0.8 Eos # 0.23 K/uL Normal 0.0-0.5 Baso # 0.05 K/uL Normal 0.0-0.1 Immature Grans Absolute 0.07 K/uL NRBC # 0.00 K/uL LDL Cholesterol 05/26/2018 [facility] Cholesterol 129 mg/dL <200 12, [address] [place], [place] [id number] [phone] Triglycerides 222 mg/dL High <150 14 HDL Cholesterol 38 mg/dL Low >40 15 LDL-Cholesterol 47 mg/dL < 100 16 Glycohemoglobin 05/26/2018 [facility] Glycohemoglobin 7.5 % High 4.2-6.[address] (A1c) [place], [place] [address] [phone] eAG 169 mg/dL CBS W/Automated 03/28/2018 [facility] White Blood 7.6 K/uL Normal 3.4-10.[address] Count [place], [place] [address] [phone] Red Blood Count 5.02 M/uL Normal 4.20-5.80 [...] 33.0-73.0 Lymph % 14.2 % Low 20.0-42.0 [place] % 9.4 % Normal 0.0-10.0 Eo% 3.3 % Normal 0.0-6.6 Bas% 0.4 % Normal 0.0-1.1 Neut# 5.55 K/uL Normal 1.8-7.0 Lymph # 1.08 K/uL Normal 1.0-4.0 [place] # 0.72 K/uL Normal 0.0-0.8 Eos # 0.25 K/uL Normal 0.0-0.5 Baso # 0.03 K/uL Normal 0.0-0.1 Comprehensive Metabolic 03/28/2018 [facility] Glucose 208 mg/dL High 74-106 Panel [address] [place] [address] [phone] BUN 22 mg/dL High 7-18 Creatinine 1.6 [...] U/L Normal 45-117 Vitamin B12 And 03/28/2018 [facility] Vitamin B12 643 pg/mL Normal 193-986 Folate [address] [place] [address] [phone] Folic Acid 16.6 ng/mL Normal 3.1-17.5 Laboratory 03/28/2018 [facility] Vitamin 25.2 Low 30.0-100.0 19 test finding [address] D,25-Hydroxy ng/[place] [address] [phone] Iron-Tibc-%Sa 03/28/2018 [facility] Serum Iron 67 Normal 65-[address] g/[place] [address] [phone] Total Iron Binding Capacity 338 g/dL Normal 250-450 Transferrin %Saturation 20 % Normal 12-57 Laboratory test 03/28/2018 [facility] Ferritin 95 ng/mL Normal 26-388 finding [address] [place] [address] [phone] Slide Review . 20 1 E55.9 E61.1 E53.9 Z00.00 Z12.5 Z11.59 2 Elevated levels of HbA1c suggest the need for more aggressive treatment of glycemia. The [place] Diabetes Association recommends that a primary goal [...] assay methods cannot be used interchangeably. Method: Siemens Farman [place] Chemiluminescent immunoassay. 4 INFCE Result Units: s/co ratio Negative: < 0.8 Indeterminate: 0.8 - 0.9 Positive: > 0.9 The CDC recommends that a positive HCV antibody result be followed up with a HCV Nucleic Acid Amplification test (542008). Performed at: - [facility] [id number] Major Case Detective: Marissa Wick MD, Phone: [phone] Note: Persistent reduction for 3 months [...] D deficiency has been defined by the Fate of Medicine and an Endocrine Society practice guideline as a level of serum 25-OH vitamin D less than 20 ng/mL (1,2). The Endocrine Society went on to further define vitamin D insufficiency as a level between 21 and 29 ng/mL (2). 1. IOM (Fate of Medicine). 2010. Dietary reference intakes for calcium and D. [place]: The National Academies Press. 2. Shivani Lundy, Loc LAWRENCE, et al. Evaluation, treatment, and prevention of vitamin D deficiency: an Endocrine Society clinical practice guideline. JCEM. 2010; 96(7):1911-30. Performed at: - [facility] [address] [id number] Major Case Detective: Marissa Wick MD, Phone: [phone] D64.9 E61.1 D64.9 E61.1 I10 E78.2 10 Vitamin D deficiency has been defined by the Fate of Medicine and an Endocrine Society practice guideline as a level of serum 25-OH vitamin D less than 20 ng/mL (1,2). The Endocrine Society went on to further define vitamin D insufficiency as a level between 21 and 29 ng/mL (2). 1. IOM (Fate of Medicine). 2010. Dietary reference intakes for calcium and D. [place]: The National Academies Press. 2. Shivani Lundy, Loc LAWRENCE, et al. Evaluation, treatment, and prevention of vitamin D deficiency: an Endocrine Society clinical practice guideline. JCEM. 2010; 96(7):1911-30. Performed at: [facility] [id number] Major Case Detective: Marissa Wick MD, Phone: [phone] Note: Persistent reduction for 3 months [...] for more aggressive treatment of glycemia. The [place] Diabetes Association recommends that a primary goal [...] D deficiency has been defined by the Fate of Medicine and an Endocrine Society practice guideline as a level of serum 25-OH vitamin D less than 20 ng/mL (1,2). The Endocrine Society went on to further define vitamin D insufficiency as a level between 21 and 29 ng/mL (2). 1. IOM (Fate of Medicine). 2010. Dietary reference intakes for calcium and D. [place]: The National Academies Press. 2. Ziyad MF, Shivani PEDRAZA, Loc LAWRENCE, et al. Evaluation, treatment, and prevention of vitamin D deficiency: an Endocrine Society clinical practice guideline. JCEM. 2010; 96(7):1911-30. Performed at: RN - [facility] [address] [id number] Major Case Detective: Marissa Wick MD, Phone: [phone] Instrument flagged sample for slide review. Less than 10% Bands seen, no other immature WBC's seen. RBC morphology essentially normal. Platelet estimate = NORMAL Procedures Date Code Description Status 09/07/2018 83350 Pressurized/Non-Pressurized Inhalation Treatment,Acute Completed Obstructio 09/02/2018 97599 Pulse Oximetry With Activity Completed 08/08/2018 54164 Debridement Nails Any Method 1-5 Completed 08/08/2018 30265 Trim Nondystrophic Nails Completed 05/24/2018 27761 Debridement Nails Any Method 6 Or More Completed 01/08/2018 [id number] Diabetic Foot Exam Completed 01/11/2017 22790235 Flexible Sigmoidoscopy Completed 01/23/2016 90119209 Colonoscopy Completed 05/29/2005 [id number] Colonoscopy Completed Medical Devices Description No Information Available Encounters Type Date Location Provider Dx Diagnosis Office Visit 09/07/2018 9:00a Primary Care Office Maggie Medel, R05 Cough MS, DIRECTOR OF BLOOD-C, CNM E11.22 Type 2 diabetes mellitus w diabetic chronic kidney disease R06.2 Wheezing J06.9 Acute upper respiratory infection, unspecified R06.02 Shortness of breath E66.01 Morbid (severe) obesity due to excess calories Z71.6 Tobacco abuse counseling Office Visit 09/02/2018 9:00a Pulmonology Devora Dawson, G47.33 Obstructive sleep PA apnea (adult) (pediatric) [...] Maggie Medel M54.5 Low back Office MS, DIRECTOR OF BLOOD-C, CNM pain E11.22 Type 2 diabetes mellitus w diabetic chronic kidney disease Z11.59 Encounter for screening for other viral diseases Z12.5 Encounter for screening for malignant neoplasm of prostate Office Visit 08/08/2018 8:00a Podiatry Office Constantine Vann, E11.9 Type 2 diabetes DPM mellitus without complications 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 calories K42.9 Umbilical hernia without obstruction or gangrene Z72.0 Tobacco use Office Visit 06/17/2018 10:30a Primary Care Maggie Medel M54.5 Low back Office MS, DIRECTOR OF BLOOD-C, CNM pain E66.09 Other obesity due to [...] Anemia, unspecified Assessments Date Code Description Provider 09/07/2018 R05 Cough Maggie Medel, MS, DIRECTOR OF BLOOD-C, CN 09/07/2018 E11.22 Type 2 diabetes mellitus with Maggie Medel, MS, DIRECTOR OF BLOOD-C , diabetic chronic kidney diseas [facility] 09/07/2018 R06.2 Wheezing Maggie Medel, MS, DIRECTOR OF BLOOD-C, CN 09/07/2018 J06.9 Acute upper respiratory infection, Maggie Medel, MS, DIRECTOR OF BLOOD-C, unspecified [facility] 09/07/2018 R06.02 Shortness of breath Maggie Medel, MS, DIRECTOR OF BLOOD-C, CN 09/07/2018 E66.01 Morbid (severe) obesity due to Maggie Medel, MS, DIRECTOR OF BLOOD- C, excess calories [facility] 09/07/2018 Z71.6 Tobacco abuse counseling Maggie Medel, MS, DIRECTOR OF BLOOD-C, [facility] 09/02/2018 G47.33 Obstructive sleep apnea (adult) [...] Chowdhury MD 08/22/2018 M54.5 Low back pain Svetlanakristin, Maggie, MS, DIRECTOR OF BLOOD-C, CN 08/22/2018 E11.22 Type 2 diabetes mellitus with Lizy Maggie, MS, DIRECTOR OF BLOOD-C , diabetic chronic kidney diseas [facility] 08/22/2018 Z11.59 Encounter for screening for other Lizy, Maggie, MS, DIRECTOR OF BLOOD-C, viral diseases [facility] 08/22/2018 Z12.5 Encounter for screening for Lizy, Maggie, MS, DIRECTOR OF BLOOD-C, malignant neoplasm of prostate CN 08/19/2018 E55.9 Vitamin D deficiency, unspecified Jessi Kc, DO 08/19/2018 E55.9 Vitamin D deficiency, unspecified Oncology Nurse 08/19/2018 E61.1 Iron deficiency Jessi Kc, DO 08/19/2018 E61.1 Iron deficiency Oncology Nurse 08/19/2018 E53.9 Vitamin B deficiency, unspecified Jessi Kc, DO 08/19/2018 E53.9 Vitamin B deficiency, unspecified Oncology Nurse 08/09/2018 E66.09 Other obesity due to excess Lizy, Maggie, MS, DIRECTOR OF BLOOD-C, calories [facility] 08/09/2018 Z72.0 Tobacco use Svetlanaen, Maggie, MS, DIRECTOR OF BLOOD-C, [facility] 08/09/2018 M54.5 Low back pain Lizy, Maggie, MS, DIRECTOR OF BLOOD-C, [facility] 08/09/2018 E55.9 Vitamin D deficiency, unspecified Lizy, Maggie, MS, DIRECTOR OF BLOOD-C, [facility] 08/09/2018 N18.3 Chronic kidney disease, stage 3 Jayla Medelline, MS, DIRECTOR OF BLOOD- C, (moderate) [facility] 08/08/2018 E11.9 Type 2 diabetes mellitus without Constantine Vann DPM complications 08/08/2018 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 07/07/2018 K42.9 Umbilical hernia without [place] obstruction or gangrene M.D. 07/07/2018 Z72.0 Tobacco use [place] M.D. 06/17/2018 M54.5 Low back pain Maggie Medel, MS, DIRECTOR OF BLOOD-C, CN 06/17/2018 E66.09 Other obesity due to excess Maggie Medel, MS, DIRECTOR OF BLOOD-C, calories CN 06/17/2018 Z71.6 Tobacco abuse counseling Maggie Medel, MS, DIRECTOR OF BLOOD-C, CN 06/10/2018 E61.1 Iron deficiency Jessi Kc, [...] Kathia Chowdhury MD 05/26/2018 D64.9 Anemia, unspecified Jessi Kc, DO 05/26/2018 D64.9 Anemia, unspecified Oncology Nurse 05/26/2018 E61.1 Iron deficiency Boufal, Jessi, DO 05/26/2018 E61.1 Iron deficiency Oncology Nurse 05/24/2018 I70.203 Unspecified atherosclerosis of Constantine Vann, DPM [place] of extremitie 05/24/2018 E11.9 Type 2 diabetes mellitus without Constantine Vann, [place] complications 05/24/2018 B35.1 Tinea unguium Constantine Vann, DPM 04/04/2018 E61.1 Iron deficiency Boufal, Jessi, DO 04/04/2018 E53.9 Vitamin B deficiency, unspecified Boufal, Jessi, DO 04/04/2018 E55.9 Vitamin D deficiency, unspecified Boufal, Jessi, DO 04/04/2018 D64.9 Anemia, unspecified Boufal, Jessi, DO 03/28/2018 D64.9 Anemia, unspecified Boufal, Jessi, DO 03/28/2018 D64.9 Anemia, unspecified Oncology Nurse 03/28/2018 E61.1 Iron deficiency Boufal, Jessi, DO 03/28/2018 E61.1 Iron deficiency Oncology Nurse Plan of Treatment Future Appointment(s):09/05/2019 9:00 am - Devroa Dawson PA at [id number]/ 30/2019 8:30 am - Maggie Medle MS, DIRECTOR OF BLOOD-C, CNM at Primary Care [id number] 8:00 am - Jessi Kc DO at Oncology [id number]/28/2018 8:00 am - Oncology Nurse at Oncology Office Functional Status Functional Condition Comment Date Status Oxygen Active Independent with all ADL's Active bipap Active Glasses Active Mental Status Description No Information Available Referrals Refer to Dr Reason for Referral Status Appt Date [place] MD Umbilical hernia, painless Has large Closed 07/07 abdomen. Evaluate if surgical candidate, advised patient that given body habitus and medical conditions surgery may not be option Dr. Wong only [id number] [id number] [phone]
[2018-09-24 12:38] VITALS: BP 109/59
--- NOTE | 2018-09-24 12:55 | UC ---
General HPI - HPI Summary HPI Summary: pt itched his R montero with his L heel 4 days ago causing an abrasion. the area is now weeping and had yellow fluid on dressing this am. no fever or chills and his BS is stable. pt showered and washed the site [employer]. - History of Current Complaint Chief Complaint: UCWounds Stated Complaint: RIGHT LEG SKIN COMPLAINT Time Seen by Provider: 09/24/18 12:33 Hx Obtained From: Patient Pain Intensity: 0 Associated Signs & Symptoms: Negative: Fever, Weakness - Allergy/Home Medications Allergies/Adverse Reactions: Allergies Allergy/AdvReac Type Severity Reaction Status Date / Time acetaminophen [From Percocet] Allergy Swelling Verified 09/24/18 12:38 Of Face,Lips,& Throat oxycodone [From Percocet] Allergy Swelling Verified 09/24/18 12:38 Of Face,Lips,& Throat PMH/Surg Hx/FS Hx/Imm Hx - Additional Past Medical History Additional PMH: remote hx leg edema. Endocrine History: Diabetes Cardiovascular History: Hypertension, Congestive Heart Failure GI/ History: Gastroesophageal Reflux Other History Of: Anticoagulant Therapy - Coumadin. Negative For: HIV, Hepatitis B, Hepatitis C - Surgical History Surgical History: Yes Surgery Procedure, Year, and Place: Both knees, L carpel tunnel, uvula removed, L foot - Family History Known Family History: Positive: Diabetes Negative: Cardiac Disease, Hypertension - Social History Alcohol Use: Occasionally Substance Use Type: None Smoking Status (MU): Light Every Day Tobacco Smoker Type: Cigarettes Amount Used/How Often: LESS THAN 1/2 PPD Length of Time of Smoking/Using Tobacco: 40 + yrs Have You Smoked in the Last Year: Yes - Immunization History Most Recent Influenza Vaccination: 2016 Most Recent Tetanus Shot: OVER 5 YEARS AOG Review of Systems All Other Systems Reviewed And Are Negative: Yes Constitutional: Negative: Fever, Chills Musculoskeletal: Negative: Decreased ROM Neurological: Negative: Weakness, Paresthesia, Numbness Physical Exam Triage Information Reviewed: Yes Appearance: Well-Appearing Vital Signs: Initial Vital Signs Temp 98.7 F 09/24/18 12:31 Pulse 94 09/24/18 12:31 Resp 18 09/24/18 12:31 BP 109/59 09/24/18 12:31 Pulse Ox 97 09/24/18 12:31 Vital Signs Reviewed: Yes Eyes: Positive: Conjunctiva Clear Respiratory: Positive: No respiratory distress Cardiovascular: Positive: RRR Musculoskeletal: Positive: Other: - RLE: 2 abrasions over montero with clear draiange. area with slight swelling and warmth plus some slight erythema. No streaking or inguinal adenopathy. s/v/m is intact. pt does have some mild bilateral venous stasis pigment changes. no additional swelling. Neurological: Positive: Alert Psychological: Positive: Age Appropriate Behavior Skin Exam: Normal Course/Dx - Diagnoses Provider Diagnosis: Cellulitis of left lower leg, Abrasion of left lower leg Discharge - Sign-Out/Discharge Documenting (check all that apply): Patient Departure All imaging exams completed and their final reports reviewed: No Studies - Discharge Plan Condition: Stable Disposition: HOME Prescriptions: Cephalexin CAP* [Keflex CAP*] 500 mg PO TID 10 Days #30 cap Silver Sulfadiazine [Silvadene] 25 gm TP DAILY 10 Days #1 cream..g. Patient Education Materials: Cellulitis (DC), Abrasion (ED) Referrals: Kathia Chowdhury MD [Primary Care Provider] - 2 Days Additional Instructions: STOP THE NEOSPORIN TOPICAL ANTIBIOTIC - Billing Disposition and Condition Condition: STABLE Disposition: Home - Attestation Statements Provider Attestation: I was available for consult. This patient was seen by the KIESHA. The patient was not presented to, seen by, or examined by me. -Nely
== END 2018-09-24 13:11 | disposition home or self-care (01) ==
LOC: UCCORT 12:23
DX: S80.812A Abrasion, left lower leg, initial encounter (principal); L03.116 Cellulitis of left lower limb; Y33.XXXA Other specified events, undetermined intent, initial encounter; Y93.89 Activity, other specified; Y92.9 Unspecified place or not applicable; E11.9 Type 2 diabetes mellitus without complications; I11.0 Hypertensive heart disease with heart failure; I50.9 Heart failure, unspecified; F17.210 Nicotine dependence, cigarettes, uncomplicated
CPT/HCPCS: 99212; G0463

== ENCOUNTER 2018-10-12 13:27 | Emergency (ER) | payer BC, MEDICARE ==
--- OUTSIDE RECORDS SUMMARY | 2018-10-12 13:42 | XMS REPORT | Continuity of Care Document ---
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 Problems Active Problems Provider Date Acute diastolic heart failure Ousmane Mustafa MD Onset: 07/19/2015 Atrial flutter Ousmane Mustafa MD Onset: 07/19/2015 Paroxysmal atrial fibrillation Ousmane Mustafa MD Onset: 07/19/2015 Anemia Jessi Kc DO Onset: 09/07/2016 Iron deficiency Jessi Kc DO Onset: 09/07/2016 Combined systolic and diastolic Linda Lujan, GEOFF, 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 FORESTRY AID Aortic valve disorder Linda Lujan, MSN, Onset: 10/14/2016 FORESTRY AID Chronic kidney disease stage 3 Linda Lujan, MSN, Onset: 10/14/2016 FORESTRY AID Type 2 diabetes mellitus Kathia Chowdhury MD [...] Use Denies Drug Use Smoking Status Reviewed: 09/30/18 Heavy tobacco smoker (more than 10 cigarettes/day) Exercise Type/Frequency Exercises rarely Allergies, Adverse Reactions, Alerts Active Allergies Reaction Severity Comments Date Aspirin 325mg GI upset 08/10/2014 Oxycodone dyspnea 08/10/2014 Medications Active Medications SIG Qnty Indications Ordering Date Provider Doxycycline take one twice a 20caps R05 Kathia Chowdhury, 09/07/2018 Monohydrate day MD 100mg Capsules Glucose [...] 120units Kathia Chowdhury, 08/24/2018 Misc sugars fasting MD and 2 [...] Chowdhury, 04/02/2017 32G X 6 mm Misc ([place]) Torsemide 2 by mouth twice I50.32 David[place], 03/09/2017 20mg Tablets a day prn Oskar Parks M.D., [facility] Metolazone 1 tab by mouth 30tabs I50.40 Linda Lujan 10/14/2016 2.5mg Tablets 1/2 hour prior to GEOFF [place], in the morning FORESTRY AID torsemide for weight gain of 2-3 over [...] By Mouth Every GEOFF [place], 24HR Day FORESTRY AID [facility] Vitamin C 1 tab qd Unknown 1000mg Tablets Baby Aspir 1 by mouth every Unknown 81mg Tablets day DR Garcia 1 tab by mouth 90tabs Gagen, 4mg Tablets every day MS Maggie, FORESTRY AID-C, CNM [facility] D3 Once A Day , Unknown 2000Unit Capsules , sat, sun two a day wed Metoprolol Tartrate Take One Tablet 180tabs Ousmane Mustafa MD 50mg By Mouth Twice A Tablets Day Fenofibrate Micronized 1 by mouth every 30caps Kathia Chowdhury, day 67mg Capsules Ramipril take one capsule 90caps Kathia Chowdhury, 2.5mg Capsules by mouth every MD day Levemir Flextouch Inject 60 Units 60ml TrentonKathia grande, AT Bedtime 100Unit/ML Solution Pen-Inject Vitamin B12 1 by mouth once a Unknown 1000mcg day Tablets ER Cephalexin Take One Capsule Unknown 500mg Capsules By Mouth Three Times A Day SSD Apply A Thin Unknown 1% Cream Layer To Wounds On Skin Daily History Medications Prednisone 2 tabs (40 mg) 10tabs R06.2 TrentonKathia grande, 09/07/2018 - 20mg Tablets daily for 5 days 09/16/2018 Fluticasone Propionate take one spray 1units J06.9 Kathia Chowdhury, 2018 - Nasal [place] 24- Hour in each nostril 09/16/2018 in morning 50mcg/Act Suspension Naproxen Sodium Take one every 30tabs M54.5 Kathia Chowdhury, 06/17/2018 - 275mg 12 hrs for back 09/01/2018 Tablets pain Ergocalciferol 1 cap by mouth 2caps Yamini, 06/10/2018 - 06924Dwrp every week DO Jessi Unknown Capsules Medications Administered in Office Medication SIG Qnty Indications Ordering Provider Date Vitamin B12 Injection 1000 Oncology Nurse 12/03/2017 mcg/Ml Injection Vitamin B12 Injection 1000 Jessi Kc DO 11/05/2017 mcg/Ml Injection Vitamin B12 Injection 1000 Yelitza Veloz NP 06/28/2017 mcg/Ml Injection Theraputic Or Diagnostic Yelitza Veloz NP 06/28/2017 Injection Injection Immunizations CPT Code Status Date Vaccine Lot # [id number] Given 06/02/2018 Pneumovax Injection [id number] Given 10/14/2017 Influenza High Dose [id number] Given 12/22/2016 Tdap injection [id number] Vital Signs Date Vital Result Comment 09/30/2018 9:34am BP Systolic Sitting Left Arm 128 mmHg BP Diastolic Sitting Left Arm 60 mmHg Body Temperature 97.2 F Heart Rate 77 /min Respiratory Rate 22 /min Height 69.5 inches 5'9.50", As per patient Weight 369.00 lb BMI (Body Mass Index) 53.7 kg/m2 BSA (Body Surface Area) 2.69 m2 [place] body weight in kilograms 74 kg O2 % BldC Oximetry 95 % 09/16/2018 9:23am BP Systolic Sitting Right Arm 112 mmHg BP Diastolic Sitting Right Arm 52 mmHg Body Temperature 98.3 F Heart Rate 72 /min Respiratory Rate 28 /min Height 69.5 inches 5'9.50", As per patient Weight 356.00 lb BMI (Body Mass Index) 51.8 kg/m2 BSA (Body Surface Area) 2.65 m2 [place] body weight in kilograms 74 kg O2 % BldC Oximetry 98 % Ra Results Test Date Facility Test Result H/L Range Note Continuous Oximetry 09/29/2018 [facility] Oximetry 93 % Normal 93-[address] [place] [address] [phone] Fio2 21 Normal 21-100 Heart Rate 70 BPM Patient Status RESTING CBS W/Automated 09/28/2018 [facility] White Blood 7.9 K/uL Normal 3.4-10.[address] [place] [address] [phone] Red Blood Count 4.80 M/uL Normal 4.20-5.80 Hemoglobin 13.9 gm/dL Normal 12.8-17.0 Hematocrit 44.6 % Normal 38.0-48.0 Mean Cell Volume 92.9 fl Normal 80.0-96.0 Mean Corpuscular HGB 29.0 pg Normal 27.0-33.0 Mean Corpuscular HGB Conc 31.2 g/dL Low 31.7-36.0 Platelet Count 267 K/uL Normal 155-360 Red Cell Distri Width SD 49.4 fl Normal 36-51 Red Cell Distri Width %CV 14.5 % Normal 11.6-15.8 Mean Platelet Volume 11.2 fl High 6.6-10.6 Neut% 72.7 % Normal 33.0-73.0 Lymph % 13.8 % Low 20.0-42.0 [place] % 8.7 % Normal 0.0-10.0 Eo% 2.8 % Normal 0.0-6.6 Bas% 0.5 % Normal 0.0-1.1 Immature Grans 1.5 % Normal 0.0-5.0 NRBC % 0.0 /100WBC < 10/ 100 WBC Neut# 5.74 K/uL Normal 1.8-7.0 Lymph # 1.09 K/uL Normal 1.0-4.0 [place] # 0.69 K/uL Normal 0.0-0.8 Eos # 0.22 K/uL Normal 0.0-0.5 Baso # 0.04 K/uL Normal 0.0-0.1 Immature Grans Absolute 0.12 K/uL NRBC # 0.00 K/uL Comprehensive Metabolic 09/28/2018 [facility] Glucose 135 mg/dL High 74-106 Panel [address] [place], [place] [address] [phone] BUN 23 mg/dL High 7-18 Creatinine 1.6 mg/dL High 0.6-1.3 Glom Filtration Rate, Estimate 46 mL/min >60 If 56 mL/min >60 3 BUN/Creat 14.3 ratio Sodium 140 mmol/L Normal 136-145 Potassium 5.1 mmol/L Normal 3.5-5.1 Chloride 106 mmol/L Normal 98-107 Carbon Dioxide 28 mmol/L Normal 21-32 Anion Gap 6 mEq/L Low 8-16 Calcium 8.7 mg/dL Normal 8.5-10.1 Total Protein 7.1 g/dL Normal 6.4-8.2 Albumin 2.8 g/dL Low 3.4-5.0 Globulin 4.3 g/dL Normal 1.9-4.3 Alb/Glob 0.7 ratio Bilirubin,Total 0.4 mg/dL Normal 0.2-1.0 Sgot/Ast 26 U/L Normal 15-37 SGPT/Alt 28 U/L Normal 12-78 Alkaline Phosphatase 51 U/L Normal 45-117 Vitamin B12 And 09/28/2018 [facility] Vitamin B12 858 pg/mL Normal 193-986 Folate [address] [place], [place] [address] [phone] Folic Acid 11.5 ng/mL Normal 3.1-17.5 Iron-Tibc-%Sat 09/28/2018 [facility] Serum Iron 56 g/dL Low 65-175 [address] [place], [place] [address] [phone] Total Iron Binding Capacity 317 g/dL Normal 250-450 Transferrin %Saturation 18 % Normal 12-57 Laboratory test 09/28/2018 [facility] Ferritin 84 Normal 26-[address] ng/[place] [address] [phone] Glycohemoglobin 08/19/2018 [facility] Glycohemoglobin 7.4 % High 4.2-6.3 4, A1c [address] (A1c) 5 [place] [address] [phone] eAG 166 mg/dL Laboratory test 08/19/2018 [facility] Prostate 0.57 ng/mL < 4.0 [address] [place] [place] [address] [phone] Hepatitis C Antibody < 0.1 s/corat 0.0-0.9 7 Basic Metabolic Panel 08/19/2018 [facility] Glucose 238 mg/dL High 74-[address] [place] [address] [phone] BUN 19 mg/dL High 7-18 Creatinine 1.3 mg/dL Normal 0.6-1.3 Glom Filtration Rate, Estimate 59 mL/min >60 If >60 mL/min >60 8 BUN/Creat 14.6 ratio Sodium 137 mmol/L Normal 136-145 Potassium 5.1 mmol/L Normal 3.5-5.1 Chloride 105 mmol/L Normal 98-107 Carbon Dioxide 24 mmol/L Normal 21-32 Anion Gap 8 mEq/L Normal 8-16 Calcium 9.1 mg/dL Normal 8.5-10.1 Laboratory test 07/22/2018 [facility] Ferritin 112 ng/mL Normal 26-388 9 finding [address] [place] [address] [phone] Iron-Tibc-%Sat 07/22/2018 [facility] Serum Iron 75 g/dL Normal 65-[address] [place] [address] [phone] Total Iron Binding Capacity 334 g/dL Normal 250-450 Transferrin %Saturation 22 % Normal 12-57 Laboratory 07/22/2018 [facility] Vitamin 28.6 Low 30.0-100.0 10 test finding [address] D,25-Hydroxy ng/[place] [address] [phone] Vitamin B12 07/22/2018 [facility] Vitamin B12 791 Normal 193-[address] pg/mL [place], [place] [address] [phone] Folic Acid 12.2 ng/mL Normal 3.1-17.5 Comprehensive Metabolic 07/22/2018 [facility] Glucose 209 mg/dL High 74-[address] [place] [address] [phone] BUN 27 mg/dL High 7-18 Creatinine 1.5 mg/dL High 0.6-1.3 Glom Filtration Rate, Estimate 50 mL/min >60 If 60 mL/min >60 11 BUN/Creat 18.0 ratio Sodium 138 mmol/L Normal [...] 12-78 Alkaline Phosphatase 53 U/L Normal 45-117 CBS W/Automated 07/22/2018 [facility] White Blood 7.5 K/uL Normal 3.4-10.[address] [place] [address] [phone] Red Blood Count 5.11 M/uL Normal 4.20-5.80 [...] 33.0-73.0 Lymph % 15.7 % Low 20.0-42.0 [place] % 9.4 % Normal 0.0-10.0 Eo% 2.9 % Normal 0.0-6.6 Bas% 0.8 % Normal 0.0-1.1 Immature Grans 2.0 % Normal 0.0-5.0 NRBC % 0.0 /100WBC < 10/ 100 WBC Neut# 5.21 K/uL Normal 1.8-7.0 Lymph # 1.18 K/uL Normal 1.0-4.0 [place] # 0.71 K/uL Normal 0.0-0.8 Eos # 0.22 K/uL Normal 0.0-0.5 Baso # 0.06 K/uL Normal 0.0-0.1 Immature Grans Absolute 0.15 K/uL NRBC # 0.00 K/uL Glycohemoglobin 05/26/2018 [facility] Glycohemoglobin 7.5 % High 4.2-6.3 12 A1c [address] [facility] (A1c) [place] [address] [phone] eAG 169 mg/dL LDL Cholesterol Profile 05/26/2018 [facility] Cholesterol 129 mg/dL <200 13 [address] [place] [address] [phone] Triglycerides 222 mg/dL High <150 14 HDL Cholesterol 38 mg/dL Low >40 15 LDL-Cholesterol 47 mg/dL < 100 16 CBS W/Automated 05/26/2018 [facility] White 7.3 K/uL Normal 3.4-10.5 17 Diff [address] [facility] [place] [address] Count [phone] Red Blood Count 5.24 M/uL Normal 4.20-5.80 [...] 33.0-73.0 Lymph % 15.2 % Low 20.0-42.0 [place] % 8.2 % Normal 0.0-10.0 Eo% 3.1 % Normal 0.0-6.6 Bas% 0.7 % Normal 0.0-1.1 Immature Grans 1.0 % Normal 0.0-5.0 NRBC % 0.0 /100WBC < 10/ 100 WBC Neut# 5.25 K/uL Normal 1.8-7.0 Lymph # 1.11 K/uL Normal 1.0-4.0 [place] # 0.60 K/uL Normal 0.0-0.8 Eos # 0.23 K/uL Normal 0.0-0.5 Baso # 0.05 K/uL Normal 0.0-0.1 Immature Grans Absolute 0.07 K/uL NRBC # 0.00 K/uL Comprehensive Metabolic 05/26/2018 [facility] Glucose 190 mg/dL High 74-106 Panel [address] [place] [address] [phone] BUN 21 mg/dL High 7-18 Creatinine 1.5 mg/dL High 0.6-1.3 Glom Filtration Rate, Estimate 50 mL/min >60 If 60 mL/min >60 18 BUN/Creat 14.0 ratio Sodium 139 mmol/L Normal [...] 12-78 Alkaline Phosphatase 48 U/L Normal 45-117 Vitamin B12 And 05/26/2018 [facility] Vitamin B12 836 pg/mL Normal 193-986 Folate [address] [place], [place] [address] [phone] Folic Acid 16.9 ng/mL Normal 3.1-17.5 Laboratory 05/26/2018 [facility] Vitamin 25.7 Low 30.0-100.0 19 test finding [address] D,25-Hydroxy ng/mL [place], [place] [address] [phone] Iron-Tibc-%Sa 05/26/2018 [facility] Serum Iron 79 Normal 65-[address] g/[place] [address] [phone] Total Iron Binding Capacity 352 g/dL Normal 250-450 Transferrin %Saturation 22 % Normal 12-57 Laboratory test 05/26/2018 [facility] Ferritin 112 ng/mL Normal 26-388 finding [address] [address] [phone] 1 J96.11 CHRONIC RESPIRATORY FAILURE WITH HYPOXIA 2 D64.9 E61.1 3 Note: Persistent reduction for 3 months or more in an eGFR <60 mL/min/1.73 m2 defines CKD. Patients with eGFR values >/=60 mL/min/1.73 m2 may also have CKD if evidence of persistent proteinuria is present. The original MDRD equation for estimated GFR is not valid for patients less than 18 years of age. Additional information may be found at www.kdoqi.org. 4 E55.9 E61.1 E53.9 Z00.00 Z12.5 Z11.59 5 Elevated levels of HbA1c suggest the need for more aggressive treatment of glycemia. The [place] [employer] Association recommends that a primary goal of therapy should be a HbA1c of <7% and that physicians should re-evaluate the treatment regimen in patients with HbA1c values consistently >8%. 6 THIS ASSAY IS NOT INTENDED A CANCER SCREENING TEST The concentration of PSA in a given specimen, determined with assays from different manufacturers, can vary due to differences in assay methods and reagent specificity. Values obtained from different assay methods cannot be used interchangeably. Method: [employer] Chemiluminescent immunoassay. 7 INFCE Result Units: s/co ratio Negative: < 0.8 Indeterminate: 0.8 - 0.9 Positive: > 0.9 The CDC recommends that a positive HCV antibody result be followed up with a HCV Nucleic Acid Amplification test ([id number]). Performed at: RN - [facility] [address] [id number] Work Car Operator: Marissa Wick MD, Phone: [phone] 8 Note: Persistent reduction for 3 months or more in an eGFR <60 mL/min/1.73 m2 defines CKD. Patients with eGFR values >/=60 mL/min/1.73 m2 may also have CKD if evidence of persistent proteinuria is present. The original MDRD equation for estimated GFR is not valid for patients less than 18 years of age. Additional information may be found at www.kdoqi.org. 9 D64.9 E61.1 10 Vitamin D deficiency has been defined by the [place] of [employer] and an Endocrine Society practice guideline as a level of serum 25-OH vitamin D less than 20 ng/mL (1,2). The Endocrine Society went on to further define vitamin D insufficiency as a level between 21 and 29 ng/mL (2). 1. IOM ([place] of [employer]). 2010. Dietary reference intakes for calcium and D. [place]: The National Academies Press. 2. Ziyad MF, Shivani NC, Loc LAWRENCE, et al. Evaluation, treatment, and prevention of vitamin D deficiency: an Endocrine Society clinical practice guideline. JCEM. 2010; 96(7):1911-30. Performed at: RN - [facility] [address] [id number] Work Car Operator: Marissa Wick MD, Phone: [phone] Note: Persistent reduction for 3 months or more in an eGFR <60 mL/min/1.73 m2 defines CKD. Patients with eGFR values >/=60 mL/min/1.73 m2 may also have CKD if evidence of persistent proteinuria is present. The original MDRD equation for estimated GFR is not valid for patients less than 18 years of age. Additional information may be found at www.kdoqi.org. 12 Elevated levels of HbA1c suggest the need for more aggressive treatment of glycemia. The [place] Diabetes Association recommends that a primary goal of therapy should be a HbA1c of <7% and that physicians should re-evaluate the treatment regimen in patients with HbA1c values consistently >8%. 13 Reference Guidelines*: Desirable: ........... < 200 [...] Source: National Cholesterol Education Program (NCEP) 17 D64.9 E61.1 D64.9 E61.1 I10 E78.2 18 Note: Persistent reduction for 3 months [...] D deficiency has been defined by the [place] of [employer] and an Endocrine Society practice guideline as a level of serum 25-OH vitamin D less than 20 ng/mL (1,2). The Endocrine Society went on to further define vitamin D insufficiency as a level between 21 and 29 ng/mL (2). 1. IOM ([place] of [employer]). 2010. Dietary reference intakes for calcium and D. [place]: The National Academies Press. 2. Ziyad MF, Shivani [place], Loc LAWRENCE, et al. Evaluation, treatment, and prevention of vitamin D deficiency: an Endocrine Society clinical practice guideline. JCEM. 2010; 96(7):1911-30. Performed at: RN - [facility] [address] [id number] Work Car Operator: Marissa Wick MD, Phone: [phone] Procedures Date Code Description Status 09/07/2018 32191 Pressurized/Non-Pressurized Inhalation Treatment,Acute Completed Obstructio 09/02/2018 39748 Pulse Oximetry With Activity Completed 08/08/2018 34633 Debridement Nails Any Method 6 Or More Completed 05/24/2018 04531 Debridement Nails Any Method 6 Or More Completed 01/08/2018 [id number] Diabetic Foot Exam Completed 01/11/2017 [id number] Flexible Sigmoidoscopy Completed 01/23/2016 [id number] Colonoscopy Completed 05/29/2005 [id number] Colonoscopy Completed Medical Devices Description No Information Available Encounters Type Date Location Provider Dx Diagnosis Office Visit 09/30/2018 Primary Care Lonnie, S80.921D Unsp superficial 9:45a Office ROMARIO Savage injury of right lower leg, subs encntr Office Visit 09/16/2018 Primary Care Lizy, E11.22 Type 2 diabetes 9:30a Office Maggie, MS, mellitus w diabetic [facility]Y AID-C, CNM chronic kidney disease R05 Cough R06.2 Wheezing J06.9 Acute upper respiratory infection, unspecified R06.02 Shortness of breath R63.4 Abnormal weight loss Office Visit 09/07/2018 9:00a Primary Care Office Maggie Medel, MS, R05 Cough FORESTRY AID-C, CNM E11.22 Type 2 diabetes mellitus w [...] Maggie Medel M54.5 Low back Office MS, FORESTRY AID-C, CNM pain E11.22 Type 2 diabetes mellitus w diabetic chronic kidney disease Z11.59 Encounter for screening for other viral diseases Z12.5 Encounter for screening for malignant neoplasm of prostate Office Visit 08/08/2018 8:00a Podiatry Office Constantine Vann, E11.9 Type 2 diabetes DPM mellitus without complications I70.203 Unsp athscl [place] of extremities, bilateral legs B35.1 Tinea unguium S90.811A Abrasion, right foot, initial encounter 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 calories K42.9 Umbilical hernia without obstruction or gangrene Z72.0 Tobacco use Office Visit 06/17/2018 10:30a Primary Care Maggie Medel M54.5 Low back Office MS, FORESTRY AID-C, CNM pain E66.09 Other obesity due to [...] Anemia, unspecified Assessments Date Code Description Provider 09/30/2018 S80.921D Unspecified superficial injury of Dee Dee Fleming PA right lower leg, subsequent encounter 09/28/2018 D64.9 Anemia, unspecified Jessi Kc, DO 09/28/2018 D64.9 Anemia, unspecified Oncology Nurse 09/28/2018 E61.1 Iron deficiency Jessi Kc, DO 09/28/2018 E61.1 Iron deficiency Oncology Nurse 09/16/2018 E11.22 Type 2 diabetes mellitus with Lizy, Maggie, MS, FORESTRY AID-C , diabetic chronic kidney diseas CN 09/16/2018 R05 Cough Lizy, Maggie, MS, FORESTRY AID-C, CNM 09/16/2018 R06.2 Wheezing Lizy, Maggie, MS, FORESTRY AID-C, CN 09/16/2018 J06.9 Acute upper respiratory infection, Lizy, Maggie, MS, FORESTRY AID-C, unspecified CN 09/16/2018 R06.02 Shortness of breath Jayla Medelline, MS, FORESTRY AID-C, CN 09/16/2018 R63.4 Abnormal weight loss Jayla Medelline, MS, FORESTRY AID-C, CN 09/07/2018 R05 Cough Lizy, Maggie, MS, FORESTRY AID-C, CN 09/07/2018 E11.22 Type 2 diabetes mellitus with Gagkristin, Maggie, MS, FORESTRY AID-C , diabetic chronic kidney diseas [facility] 09/07/2018 R06.2 Wheezing Lizy, Maggie, MS, FORESTRY AID-C, CN 09/07/2018 J06.9 Acute upper respiratory infection, Lizy, Maggie, MS, FORESTRY AID-C, unspecified CN 09/07/2018 R06.02 Shortness of breath Jayla [place]elline, MS, FORESTRY AID-C, CN 09/07/2018 E66.01 Morbid (severe) obesity due to Lizy, Maggie, MS, FORESTRY AID- C, excess calories [facility] 09/07/2018 Z71.6 Tobacco abuse counseling Jayla Medelline, MS, FORESTRY AID-C, CNM 09/02/2018 G47.33 Obstructive sleep apnea (adult) Devora [...] Chowdhury MD 08/22/2018 M54.5 Low back pain Maggie Medel, MS, FORESTRY AID-C, [facility] 08/22/2018 E11.22 Type 2 diabetes mellitus with Maggie Medel, MS, FORESTRY AID-C , diabetic chronic kidney diseas [facility] 08/22/2018 Z11.59 Encounter for screening for other Maggie Medel, MS, FORESTRY AID-C, viral diseases [facility] 08/22/2018 Z12.5 Encounter for screening for Maggie Medel, MS, FORESTRY AID-C, malignant neoplasm of prostate [facility] 08/19/2018 E55.9 Vitamin D deficiency, unspecified Jessi Kc, DO 08/19/2018 E55.9 Vitamin D deficiency, unspecified Oncology Nurse 08/19/2018 E61.1 Iron deficiency Jessi Kc, DO 08/19/2018 E61.1 Iron deficiency Oncology Nurse 08/19/2018 E53.9 Vitamin B deficiency, unspecified Jessi Kc, DO 08/19/2018 E53.9 Vitamin B deficiency, unspecified Oncology Nurse 08/09/2018 E66.09 Other obesity due to excess Maggie Medel, MS, FORESTRY AID-C, calories [facility] 08/09/2018 Z72.0 Tobacco use Maggie Medel, MS, FORESTRY AID-C, CNM 08/09/2018 M54.5 Low back pain Maggie Medel, MS, FORESTRY AID-C, CNM 08/09/2018 E55.9 Vitamin D deficiency, unspecified Maggie Medel, MS, FORESTRY AID-C, CN 08/09/2018 N18.3 Chronic kidney disease, stage 3 Maggie Medel, MS, FORESTRY AID- C, (moderate) CNM 08/08/2018 E11.9 Type 2 diabetes mellitus without Constantine Vann, [place] complications 08/08/2018 I70.203 Unspecified atherosclerosis of Constantine Vann, [facility] [place] of extremities, bilateral legs 08/08/2018 B35.1 Tinea unguium Constantine Vann, [facility] 08/08/2018 S90.811A Abrasion, right foot, initial Constantine Vann, [place] encounter 08/08/2018 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 07/07/2018 K42.9 Umbilical hernia without [place], obstruction or gangrene M.D. 07/07/2018 Z72.0 Tobacco use [place] M.D. 06/17/2018 M54.5 Low back pain Maggie Medel, , [facility]Y AID-C, CN 06/17/2018 E66.09 Other obesity due to excess Maggie Medel, MS, FORESTRY AID-C, calories [facility] 06/17/2018 Z71.6 Tobacco abuse counseling Maggie Medel, MS, FORESTRY AID-C, CNM 06/10/2018 E61.1 Iron deficiency Jessi Kc, DO 06/10/2018 E53.9 Vitamin B deficiency, unspecified Boufal, Jessi, DO 06/10/2018 E55.9 Vitamin D deficiency, unspecified Boufal, Jessi, DO 06/02/2018 Z00.00 Encounter for general adult [...] Kathia Chowdhury MD 05/26/2018 D64.9 Anemia, unspecified BorebeccaalCameront, DO 05/26/2018 D64.9 Anemia, unspecified Oncology Nurse 05/26/2018 E61.1 Iron deficiency Jessi Kc, 05/26/2018 E61.1 Iron deficiency Oncology Nurse 05/24/2018 I70.203 Unspecified atherosclerosis of Constantine Vann, [place] [facility] 05/24/2018 E11.9 Type 2 diabetes mellitus without Constantine Vann DPM complications 05/24/2018 B35.1 Tinea unguium Constantine Vann DPM 04/04/2018 E61.1 Iron deficiency BhavinalLizzetteJessi, DO 04/04/2018 E53.9 Vitamin B deficiency, unspecified Boufal, Jessi, DO 04/04/2018 E55.9 Vitamin D deficiency, unspecified Boufal, Jessi, DO 04/04/2018 D64.9 Anemia, unspecified Boufal, Jessi, DO Plan of Treatment Future Appointment(s):10/05/2018 8:00 am - Chelsey Zeng MD at Oncology [id number]/26/2018 8:00 am - Moris Dan PA at Cardiology [id number] 9:00 am - Devora Daswon PA at [email or web address]/30/2019 8:30 am - Maggie Medel, MS, FORESTRY AID-C, CNM at Primary Care Office Functional Status Functional Condition Comment Date [...] may not be option Dr. Wong only [address] [id number] [phone]
--- OUTSIDE RECORDS SUMMARY | 2018-10-12 13:42 | XMS REPORT | Continuity of Care Document ---
:1950 External Reference #:[id number] Author Name Chelsey Zeng MD (transmitted by agent of provider Tarah Ralph) Address [address] [place] [address] Care Team Providers Name Role Phone Kathia Chowdhury MD - Internal Medicine Care Team Information Manager Part Problems Active Problems Provider Date Acute diastolic heart failure Ousmane Mustafa MD Onset: 07/19/2015 Atrial flutter Ousmane Mustafa MD Onset: 07/19/2015 Paroxysmal atrial fibrillation Ousmane Mustafa MD Onset: 07/19/2015 Anemia Jessi Kc DO Onset: 09/07/2016 Iron deficiency Jessi Kc DO Onset: 09/07/2016 Combined systolic and diastolic Linda Lujan, MSN, 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 DEVELOPER Aortic valve disorder Linda Lujan, MSN, Onset: 10/14/2016 [employer] SERVER DEVELOPER Chronic kidney disease stage 3 Linda Lujan, MSN, Onset: 10/14/2016 [employer] SERVER DEVELOPER Type 2 diabetes mellitus Kathia Chowdhury MD [...] Stool Softener Take One Capsule 180caps Cuong Chowhdurya, 07/12/2018 100mg By Mouth Twice A MD [...] Chowdhury, 04/02/2017 32G X 6 mm Misc ([place]) Torsemide 2 by mouth twice I50.32 Froy, 03/09/2017 20mg Tablets a day prn Oskar Parks M.D., [facility] Metolazone 1 tab by mouth 30tabs I50.40 Linda Lujan 10/14/2016 2.5mg Tablets 1/2 hour prior to GEOFF Burleson, in the morning [employer]ER DEVELOPER torsemide for weight gain of 2-3 over [...] By Mouth Every GEOFF Burleson, 24HR Day [employer] SERV[employer] DEVEL[employer] [facility] Vitamin C 1 tab qd Unknown 1000mg Tablets Baby Aspir 1 by mouth every Unknown 81mg Tablets day DR Garcia 1 tab by mouth 90tabs Gagen, 4mg Tablets every day Maggie MS, [employer] DEVELOPER-C, CNM [facility] D3 Once A Day , [...] day Levemir Flextouch Inject 60 Units 60ml Cuong Chowdhurya, AT Bedtime 100Unit/ML Solution Pen-Inject Vitamin B12 1 by mouth once a Unknown 1000mcg day Tablets ER Cephalexin Take One Capsule Unknown 500mg Capsules By Mouth Three Times A Day SSD Apply A Thin Unknown 1% Cream Layer To Wounds On Skin Daily History Medications Prednisone 2 tabs (40 mg) 10tabs R06.2 Kathia Chowdhury, 09/07/2018 - 20mg Tablets daily for 5 days 09/16/2018 Fluticasone Propionate take one spray 1units J06.9 Kathia Chowdhury, 2018 - Nasal [place] 24- Hour in each nostril 09/16/2018 in morning 50mcg/Act Suspension Naproxen Sodium Take one every 30tabs M54.5 Kathia Chowdhury, 06/17/2018 - 275mg 12 hrs for back 09/01/2018 Tablets pain Ergocalciferol 1 cap by mouth 2caps Yamini 06/10/2018 - [id number] every week DO Jessi Unknown Capsules Medications Administered in Office Medication SIG Qnty Indications Ordering Provider Date Vitamin B12 Injection 1000 Oncology Nurse 12/03/2017 mcg/Ml Injection Vitamin B12 Injection 1000 Jessi Kc DO 11/05/2017 mcg/Ml Injection Vitamin B12 Injection 1000 Yelitza Veloz NP 06/28/2017 mcg/Ml Injection Theraputic Or Diagnostic Yelitza Veloz NP 06/28/2017 Injection Injection Immunizations CPT Code Status Date Vaccine Lot # [id number] Given 06/02/2018 Pneumovax Injection [id number] Given 10/14/2017 Influenza High Dose [id number] Given 12/22/2016 Tdap injection [id number] Vital Signs Date Vital Result Comment 10/05/2018 7:59am BP Systolic 127 mmHg BP Diastolic 68 mmHg Body Temperature 98.4 F Heart Rate 103 /min Respiratory Rate 20 /min Weight 371.38 lb O2 % BldC Oximetry 94 % Pain Level 0 09/30/2018 9:34am BP Systolic Sitting Left Arm 128 mmHg BP Diastolic Sitting Left Arm 60 mmHg Body Temperature 97.2 F Heart Rate 77 /min Respiratory Rate 22 /min Height 69.5 inches 5'9.50", As per patient Weight 369.00 lb BMI (Body Mass Index) 53.7 kg/m2 BSA (Body Surface Area) 2.69 m2 [place] body weight in kilograms 74 kg O2 % BldC Oximetry 95 % Results Test Date Facility Test Result H/L Range Note Nocturnal Oximetry 09/29/2018 [facility] Low Oximetry 85 % Low 93-98 1 [address] [place] [address] [phone] Fio2 21 Normal 21-100 Heart Rate 70 BPM Duration Of Study 317 MINUTES Total Time Below 88% 24.9 MINUTES Continuous Oximetry 09/29/2018 [facility] Oximetry 93 % Normal 93-98 [address] [place] [address] [phone] Fio2 21 Normal 21-100 Heart Rate 70 BPM Patient Status RESTING CBS W/Automated 09/28/2018 [facility] White Blood 7.9 K/uL Normal 3.4-10.[address] Count [place], [place] [id number] [phone] Red Blood Count 4.80 M/uL Normal 4.20-5.80 [...] 33.0-73.0 Lymph % 13.8 % Low 20.0-42.0 Stokes % 8.7 % Normal 0.0-10.0 Eo% 2.8 % Normal 0.0-6.6 Bas% 0.5 % Normal 0.0-1.1 Immature Grans 1.5 % Normal 0.0-5.0 NRBC % 0.0 /100WBC < 10/ 100 WBC Neut# 5.74 K/uL Normal 1.8-7.0 Lymph # 1.09 K/uL Normal 1.0-4.0 Stokes # 0.69 K/uL Normal 0.0-0.8 Eos # 0.22 K/uL Normal 0.0-0.5 Baso # 0.04 K/uL Normal 0.0-0.1 Immature Grans Absolute 0.12 K/uL NRBC # 0.00 K/uL Comprehensive Metabolic 09/28/2018 [facility] Glucose 135 mg/dL High 74-106 Panel [address] [place] [address] [phone] BUN 23 mg/dL High 7-18 Creatinine 1.6 [...] U/L Normal 45-117 Vitamin B12 And 09/28/2018 [facility] Vitamin B12 858 pg/mL Normal 193-986 Folate [address] [place] [address] [phone] Folic Acid 11.5 ng/mL Normal 3.1-17.5 Iron-Tibc-%Sat 09/28/2018 [facility] Serum Iron 56 g/dL Low 65-175 [address] [place] [address] [phone] Total Iron Binding Capacity 317 g/dL Normal 250-450 Transferrin %Saturation 18 % Normal 12-57 Laboratory test 09/28/2018 [facility] Ferritin 84 Normal 26-[address] ng/[place] [address] [phone] Glycohemoglobin 08/19/2018 [facility] Glycohemoglobin 7.4 % High 4.2-6.3 4, A1c [address] (A1c) [address] [place] [address] [phone] eAG 166 mg/dL Laboratory test 08/19/2018 [facility] Prostate 0.57 ng/mL < 4.0 [address] [place] [place] [address] [phone] Hepatitis C Antibody < 0.1 s/corat 0.0-0.9 7 Basic Metabolic Panel 08/19/2018 [facility] Glucose 238 mg/dL High 74-[address] [place] [address] [phone] BUN 19 mg/dL High 7-18 Creatinine 1.3 mg/dL Normal 0.6-1.3 Glom Filtration Rate, Estimate 59 mL/min >60 If >60 mL/min >60 8 BUN/Creat 14.6 ratio Sodium 137 mmol/L Normal 136-145 Potassium 5.1 mmol/L Normal 3.5-5.1 Chloride 105 mmol/L Normal 98-107 Carbon Dioxide 24 mmol/L Normal 21-32 Anion Gap 8 mEq/L Normal 8-16 Calcium 9.1 mg/dL Normal 8.5-10.1 CBS W/Automated 07/22/2018 [facility] White Blood 7.5 K/uL Normal 3.4-10.5 [address] [place] [address] [phone] Red Blood Count 5.11 M/uL Normal 4.20-5.80 [...] 33.0-73.0 Lymph % 15.7 % Low 20.0-42.0 Stokes % 9.4 % Normal 0.0-10.0 Eo% 2.9 % Normal 0.0-6.6 Bas% 0.8 % Normal 0.0-1.1 Immature Grans 2.0 % Normal 0.0-5.0 NRBC % 0.0 /100WBC < 10/ 100 WBC Neut# 5.21 K/uL Normal 1.8-7.0 Lymph # 1.18 K/uL Normal 1.0-4.0 Stokes # 0.71 K/uL Normal 0.0-0.8 Eos # 0.22 K/uL Normal 0.0-0.5 Baso # 0.06 K/uL Normal 0.0-0.1 Immature Grans Absolute 0.15 K/uL NRBC # 0.00 K/uL Comprehensive Metabolic 07/22/2018 [facility] Glucose 209 mg/dL High 74-106 Panel [address] [place] [address] [phone] BUN 27 mg/dL High 7-18 Creatinine 1.5 mg/dL High 0.6-1.3 Glom Filtration Rate, Estimate 50 mL/min >60 If 60 mL/min >60 10 BUN/Creat 18.0 ratio Sodium 138 mmol/L Normal [...] 12-78 Alkaline Phosphatase 53 U/L Normal 45-117 Laboratory test 07/22/2018 [facility] Ferritin 112 ng/mL Normal 26-388 finding [address] [place] [address] [phone] Iron-Tibc-%Sat 07/22/2018 [facility] Serum Iron 75 g/dL Normal 65-175 [address] [place] [address] [phone] Total Iron Binding Capacity 334 g/dL Normal 250-450 Transferrin %Saturation 22 % Normal 12-57 Laboratory 07/22/2018 [facility] Vitamin 28.6 Low 30.0-100.0 11 test finding [address] D,25-Hydroxy ng/[place] [address] [phone] Vitamin B12 07/22/2018 [facility] Vitamin B12 791 Normal 193-[address] pg/[place] [address] [phone] Folic Acid 12.2 ng/mL Normal 3.1-17.5 Glycohemoglobin 05/26/2018 [facility] Glycohemoglobin 7.5 % High 4.2-6.3 12 A1c [address] [facility] (A1c) [place] [address] [phone] eAG 169 mg/dL LDL Cholesterol Profile 05/26/2018 [facility] Cholesterol 129 mg/dL <[address] [place] [address] [phone] Triglycerides 222 mg/dL High <150 14 HDL Cholesterol 38 mg/dL Low >40 15 LDL-Cholesterol 47 mg/dL < 100 16 CBS W/Automated 05/26/2018 [facility] White 7.3 K/uL Normal 3.4-10.5 17 Diff [address] [place] [address] Count [phone] Red Blood Count 5.24 M/uL Normal 4.20-5.80 [...] 33.0-73.0 Lymph % 15.2 % Low 20.0-42.0 Stokes % 8.2 % Normal 0.0-10.0 Eo% 3.1 % Normal 0.0-6.6 Bas% 0.7 % Normal 0.0-1.1 Immature Grans 1.0 % Normal 0.0-5.0 NRBC % 0.0 /100WBC < 10/ 100 WBC Neut# 5.25 K/uL Normal 1.8-7.0 Lymph # 1.11 K/uL Normal 1.0-4.0 Stokes # 0.60 K/uL Normal 0.0-0.8 Eos # 0.23 K/uL Normal 0.0-0.5 Baso # 0.05 K/uL Normal 0.0-0.1 Immature Grans Absolute 0.07 K/uL NRBC # 0.00 K/uL Comprehensive Metabolic 05/26/2018 [facility] Glucose 190 mg/dL High 74-106 Panel [address] [place] [address] [phone] BUN 21 mg/dL High 7-18 Creatinine 1.5 [...] U/L Normal 45-117 Vitamin B12 And 05/26/2018 [facility] Vitamin B12 836 pg/mL Normal 193-986 Folate [address] [place] [address] [phone] Folic Acid 16.9 ng/mL Normal 3.1-17.5 Laboratory 05/26/2018 [facility] Vitamin 25.7 Low 30.0-100.0 19 test finding [address] D,25-Hydroxy ng/[place] [address] [phone] Iron-Tibc-%Sa 05/26/2018 [facility] Serum Iron 79 Normal 65-[address] g/[place] [address] [phone] Total Iron Binding Capacity 352 g/dL Normal 250-450 Transferrin %Saturation 22 % Normal 12-57 Laboratory test 05/26/2018 [facility] Ferritin 112 ng/mL Normal 26-388 finding [address] [place], [place] [address] [phone] 1 J96.11 CHRONIC RESPIRATORY FAILURE WITH HYPOXIA [...] for more aggressive treatment of glycemia. The [place] [employer] recommends that a primary goal [...] assay methods cannot be used interchangeably. Method: [place] Chemiluminescent immunoassay. 7 INFCE Result Units: s/co ratio Negative: < 0.8 Indeterminate: 0.8 - 0.9 Positive: > 0.9 The CDC recommends that a positive HCV antibody result be followed up with a HCV Nucleic Acid Amplification test (711377). Performed at: RN - [facility] [address] [place], [place] [id number] Fish Hatcher[employer] Laborer: Marissa Wick MD, Phone: [phone] Note: Persistent reduction for 3 months [...] found at www.kdoqi.org. 9 D64.9 E61.1 10 Note: Persistent reduction for 3 months or more in an eGFR <60 mL/min/1.73 m2 defines CKD. Patients with eGFR values >/=60 mL/min/1.73 m2 may also have CKD if evidence of persistent proteinuria is present. The original MDRD equation for estimated GFR is not valid for patients less than 18 years of age. Additional information may be found at www.kdoqi.org. 11 Vitamin D deficiency has been defined by the [place] [employer] and an Endocrine Society practice guideline as a level of serum 25-OH vitamin D less than 20 ng/mL (1,2). The Endocrine Society went on to further define vitamin D insufficiency as a level between 21 and 29 ng/mL (2). 1. IOM ([place] of [employer]). 2010. Dietary reference intakes for calcium and D. [place]: The National Academies Press. 2. Ziyad MF, Shivani NC, Loc LAWRENCE, et al. Evaluation, treatment, and prevention of vitamin D deficiency: an Endocrine Society clinical practice guideline. JCEM. 2010; 96(7):1911-30. Performed at: RN - [facility] [address] [place], [place] [id number] Fish Hatchery Laborer: Marissa Wick MD, Phone: [phone] Elevated levels of HbA1c suggest the need for more aggressive treatment of glycemia. The [place] Diabetes Association recommends that a primary goal [...] D deficiency has been defined by the [place] [employer] and an Endocrine Society practice guideline as a level of serum 25-OH vitamin D less than 20 ng/mL (1,2). The Endocrine Society went on to further define vitamin D insufficiency as a level between 21 and 29 ng/mL (2). 1. IOM ([place] [employer]). 2010. Dietary reference intakes for calcium and D. [place]: The National Academies Press. 2. Ziyad MF, Shivani PEDRAZA, Loc LAWRENCE, et al. Evaluation, treatment, and prevention of vitamin D deficiency: an Endocrine Society clinical practice guideline. JCEM. 2010; 96(7):1911-30. Performed at: RN - [facility] [address] [id number] Fish Hatchery Laborer: Marissa Wick MD, Phone: [phone] Procedures Date Code Description Status 09/07/2018 26884 Pressurized/Non-Pressurized Inhalation Treatment,Acute Completed Obstructio 09/02/2018 61911 Pulse Oximetry With Activity Completed 08/08/2018 83769 Debridement Nails Any Method 6 Or More Completed 05/24/2018 45319 Debridement Nails Any Method 6 Or More Completed 01/08/2018 [id number] Diabetic Foot Exam Completed 01/11/2017 [id number] Flexible Sigmoidoscopy Completed 01/23/2016 [id number] Colonoscopy Completed 05/29/2005 [id number] Colonoscopy Completed Medical Devices Description No Information Available Encounters Type Date Location Provider Dx Diagnosis Office Visit 10/05/2018 Oncology Office Chelsey Zeng MD D64.9 Anemia, unspecified 8:00a 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 Office Visit 09/30/2018 9:45a Primary Care Lonnie, S80.921A Unsp superficial Office ROMARIO Savage injury of right lower leg, init encntr Office Visit 09/16/2018 9:30a Primary Care Lizy, E11.22 Type 2 diabetes Office Maggie MS, mellitus w [employer]ELOPER-C, CNM diabetic chronic kidney disease R05 Cough R06.2 Wheezing J06.9 Acute upper respiratory infection, unspecified R06.02 Shortness of breath R63.4 Abnormal weight loss Office Visit 09/07/2018 9:00a Primary Care Office Maggie Medel, MS, R05 Cough [employer] DEVELOPER-C, CNM E11.22 Type 2 diabetes mellitus w diabetic chronic kidney disease R06.2 Wheezing J06.9 Acute upper respiratory infection, unspecified R06.02 Shortness of breath E66.01 Morbid (severe) obesity due to excess calories Z71.6 Tobacco abuse counseling Office Visit 09/02/2018 9:00a Pulmonology Zeyad Dawsonmy, G47.33 Obstructive sleep PA apnea (adult) (pediatric) [...] Maggie Medel M54.5 Low back Office MS, [employer] DEVELOPER-C, CNM pain E11.22 Type 2 diabetes mellitus w diabetic chronic kidney disease Z11.59 Encounter for screening for other viral diseases Z12.5 Encounter for screening for malignant neoplasm of prostate Office Visit 08/08/2018 8:00a Podiatry Office Constantine Vann, E11.9 Type 2 diabetes DPM mellitus without complications 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 09/30/2018 S80.921A Unspecified superficial injury of Dee Dee Fleming PA right lower leg, initial encounter 09/29/2018 J96.11 Chronic respiratory failure with Devora Dawson PA hypoxia 09/28/2018 D64.9 Anemia, unspecified Yamini Jessi, 09/28/2018 D64.9 Anemia, unspecified Oncology Nurse 09/28/2018 E61.1 Iron deficiency Jessi Kc, DO 09/28/2018 E61.1 Iron deficiency Oncology Nurse 09/16/2018 E11.22 Type 2 diabetes mellitus with Maggie Medel, MS, [employer]OPER[employer]C , diabetic chronic kidney diseas [facility] 09/16/2018 R05 Cough Lizy, Maggie, MS, [employer] DEVELOPER-C, [facility] 09/16/2018 R06.2 Wheezing Maggie Medel, MS, [employer] DEVELOPER-C, [facility] 09/16/2018 J06.9 Acute upper respiratory infection, Maggie Medel, MS, [employer] DEVELOPER-C, unspecified [facility] 09/16/2018 R06.02 Shortness of breath Maggie Medel, MS, [employer] DEVELOPER-C, CN 09/16/2018 R63.4 Abnormal weight loss Maggie Medel, MS, [employer]ELOPER-C, CN 09/07/2018 R05 Cough Lizy, Maggie, MS, [employer] DEVELOPER-C, CN 09/07/2018 E11.22 Type 2 diabetes mellitus with Maggie Medel, MS, [employer] DEVELOPER-C , diabetic chronic kidney diseas [facility] 09/07/2018 R06.2 Wheezing Jayla Medelline, MS, [employer] DEVELOPER-C, CNM 09/07/2018 J06.9 Acute upper respiratory infection, Jayla Medelline, MS, [employer] DEVELOPER-C, unspecified [facility] 09/07/2018 R06.02 Shortness of breath Maggie Medel, , [employer] DEVELOPER-C, [facility] 09/07/2018 E66.01 Morbid (severe) obesity due to Maggie Medel, MS, SQL SERVER DEVELOPER- C, excess calories [facility] 09/07/2018 Z71.6 Tobacco abuse counseling Maggie Medel, , [employer] DEVELOPER-C, [facility] 09/02/2018 G47.33 Obstructive sleep apnea (adult) Devora [...] M54.5 Low back pain Maggie Medel, MS, [employer] DEVELOPER-C, [facility] 08/22/2018 E11.22 Type 2 diabetes mellitus with Maggie Medel, MS, [employer]ELOPER-C , diabetic chronic kidney diseas [facility] 08/22/2018 Z11.59 Encounter for screening for other Maggie Medel, , [employer]ELOPER-C, viral diseases [facility] 08/22/2018 Z12.5 Encounter for screening for Maggie Medel, MS, [employer]ELOPER-C, malignant neoplasm of prostate [facility] 08/19/2018 E55.9 Vitamin D deficiency, unspecified Jessi Kc DO 08/19/2018 E55.9 Vitamin D deficiency, unspecified Oncology Nurse 08/19/2018 E61.1 Iron deficiency Boufal, Jessi, DO 08/19/2018 E61.1 Iron deficiency Oncology Nurse 08/19/2018 E53.9 Vitamin B deficiency, unspecified Borebeccaal, Jessi, DO 08/19/2018 E53.9 Vitamin B deficiency, unspecified Oncology Nurse 08/09/2018 E66.09 Other obesity due to excess Gagkristin, Maggie, MS, [employer]ELOPER-C, calories CN 08/09/2018 Z72.0 Tobacco use Lizy, Maggie, MS, [employer]ELOPER-C, CNM 08/09/2018 M54.5 Low back pain Gagen, Maggie, MS, [employer]ELOPER-C, CNM 08/09/2018 E55.9 Vitamin D deficiency, unspecified Jayla Medelline, MS, [employer] DEVELOPER-C, [facility] 08/09/2018 N18.3 Chronic kidney disease, stage 3 Maggie Medel, MS, [employer] SERVER DEVELOPER- C, (moderate) CN 08/08/2018 E11.9 Type 2 diabetes mellitus without Constantine Vann, DPDaisy complications 08/08/2018 I70.203 Unspecified atherosclerosis of Constantine Vann, DPDaisy inupiat arteries of extremities, bilateral legs 08/08/2018 B35.1 Tinea unguium Constantine Vann, DPM 08/08/2018 S90.811A Abrasion, right foot, initial Constantine Vann, DPDaisy encounter 08/08/2018 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 07/07/2018 K42.9 Umbilical hernia without [place] obstruction or gangrene [place] 07/07/2018 Z72.0 Tobacco use [place] M.D. 06/17/2018 M54.5 Low back pain Maggie Medel, MS, [employer]ELOPER-C, CN 06/17/2018 E66.09 Other obesity due to excess Maggie Medel, MS, [employer]ELOPER-C, calories [facility] 06/17/2018 Z71.6 Tobacco abuse counseling Maggie Medel, MS, [employer]ER DEVELOPER-C, CN 06/10/2018 E61.1 Iron deficiency Jessi Kc, [...] Nurse 05/26/2018 E61.1 Iron deficiency Jessi Kc, DO 05/26/2018 E61.1 Iron deficiency Oncology Nurse 05/24/2018 I70.203 Unspecified atherosclerosis of Constantine Vann DPM [facility] 05/24/2018 E11.9 Type 2 diabetes mellitus without Constantine Vann DPM complications 05/24/2018 B35.1 Tinea unguianurag Constantine Vann DPM Plan of Treatment Future Appointment(s):12/02/2018 8:00 am - Oncology Nurse at Oncology [id number] 11:00 am - Jessi Kc DO at Oncology [id number]/26/2018 8:00 am - Moris Dan PA at Cardiology Uidnes0809/05/2019 9:00 am - Devora Dawson PA at Agucweueafh27/30/2019 8:30 am - Maggie Medel MS, [employer] SERVER DEVELOPER-C, CNM at Primary Care Office Functional Status [...] may not be option Dr. Wong only [address] [place] [address] [phone]
--- OUTSIDE RECORDS SUMMARY | 2018-10-12 13:42 | XMS REPORT | Continuity of Care Document ---
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] Doxycycline take one twice a 20caps R05 Kahtia Chowdhury, 09/07/2018 Monohydrate day MD 100mg Capsules [...] Chowdhury, 04/02/2017 32G X 6 mm Misc ([place]) Torsemide 2 by mouth twice I50.32 Froy, 03/09/2017 20mg Tablets a day prn Oskar Parks M.D., [facility] Metolazone 1 tab by mouth 30tabs I50.40 Linda Lujan 10/14/2016 2.5mg Tablets 1/2 hour prior to GEOFF Burleson, in the morning HAND CEMENTER torsemide for weight gain of 2-3 over [...] By Mouth Every GEOFF Burleson, 24HR Day HAND CEMENTER [facility] Vitamin C 1 tab qd Unknown 1000mg Tablets Baby Aspir 1 by mouth every Unknown 81mg Tablets day DR Garcia 1 tab by mouth 90tabs Gagen, 4mg Tablets every day Maggie MS, HAND CEMENTER-C, CNM [facility] D3 Once A Day , [...] 1units J06.9 Kathia Chowdhury, 2018 - [place] 24- Hour in each nostril 09/16/2018 in morning 50mcg/Act Suspension Naproxen Sodium Take one every 30tabs M54.5 Kathia Chowdhury, 06/17/2018 - 275mg 12 hrs for back 09/01/2018 Tablets pain Ergocalciferol 1 cap by mouth 2caps Yamini 06/10/2018 - [id number] every week DO Jessi Unknown Capsules Medications Administered in Office Medication SIG Qnty Indications Ordering Provider Date Vitamin B12 Injection 1000 Oncology Nurse 12/03/2017 mcg/Ml Injection Vitamin B12 Injection 1000 Jessi Kc DO 11/05/2017 mcg/Ml Injection Vitamin B12 Injection 1000 Yelitza Veloz NP 06/28/2017 mcg/Ml Injection Theraputic Or Diagnostic Yelitza Veloz NP 06/28/2017 Injection Injection Immunizations CPT Code Status Date Vaccine Lot # [id number] Given 06/02/2018 Pneumovax Injection [id number] Given 10/14/2017 Influenza High Dose [id number] Given 12/22/2016 Tdap injection [id number] Vital Signs [...] kg/m2 BSA (Body Surface Area) 2.69 m2 [place] body weight in kilograms 74 kg O2 % BldC Oximetry 95 % Results Test Date Facility Test Result H/L Range Note Nocturnal Oximetry 09/29/2018 [facility] Low Oximetry 85 % Low 93-98 1 [address] [place] [address] [phone] Fio2 21 Normal 21-100 Heart Rate 70 BPM Duration Of Study 317 MINUTES Total Time Below 88% 24.9 MINUTES Continuous Oximetry 09/29/2018 [facility] Oximetry 93 % Normal 93-98 [address] [place] [address] [phone] Fio2 21 Normal 21-100 Heart Rate 70 BPM Patient Status RESTING CBS W/Automated 09/28/2018 [facility] White Blood 7.9 K/uL Normal 3.4-10.[address] Count [place], [place] [id number] [phone] Red Blood Count 4.80 M/uL Normal 4.20-5.80 [...] 33.0-73.0 Lymph % 13.8 % Low 20.0-42.0 [place] % 8.7 % Normal 0.0-10.0 Eo% 2.8 % Normal 0.0-6.6 Bas% 0.5 % Normal 0.0-1.1 Immature Grans 1.5 % Normal 0.0-5.0 NRBC % 0.0 /100WBC < 10/ 100 WBC Neut# 5.74 K/uL Normal 1.8-7.0 Lymph # 1.09 K/uL Normal 1.0-4.0 [place] # 0.69 K/uL Normal 0.0-0.8 Eos # 0.22 K/uL Normal 0.0-0.5 Baso # 0.04 K/uL Normal 0.0-0.1 Immature Grans Absolute 0.12 K/uL NRBC # 0.00 K/uL Comprehensive Metabolic 09/28/2018 [facility] Glucose 135 mg/dL High 74-106 Panel [address] [place] [address] [phone] BUN 23 mg/dL High 7-18 Creatinine 1.6 [...] U/L Normal 45-117 Vitamin B12 And 09/28/2018 [facility] Vitamin B12 858 pg/mL Normal 193-986 Folate [address] [place] [address] [phone] Folic Acid 11.5 ng/mL Normal 3.1-17.5 Iron-Tibc-%Sat 09/28/2018 [facility] Serum Iron 56 g/dL Low 65-175 [address] [place] [address] [phone] Total Iron Binding Capacity 317 g/dL Normal 250-450 Transferrin %Saturation 18 % Normal 12-57 Laboratory test 09/28/2018 [facility] Ferritin 84 Normal 26-[address] ng/[place] [address] [phone] Glycohemoglobin 08/19/2018 [facility] Glycohemoglobin 7.4 % High 4.2-6.3 4, A1c [address] (A1c) 5 [place] [address] [phone] eAG 166 mg/dL Laboratory test 08/19/2018 [facility] Prostate 0.57 ng/mL < 4.0 [address] [place] [address] [phone] Hepatitis C Antibody < 0.1 s/corat 0.0-0.9 7 Basic Metabolic Panel 08/19/2018 [facility] Glucose 238 mg/dL High 74-[address] [place] [address] [phone] BUN 19 mg/dL High 7-18 Creatinine 1.3 mg/dL Normal 0.6-1.3 Glom Filtration Rate, Estimate 59 mL/min >60 If >60 mL/min >60 8 BUN/Creat 14.6 ratio Sodium 137 mmol/L Normal 136-145 Potassium 5.1 mmol/L Normal 3.5-5.1 Chloride 105 mmol/L Normal 98-107 Carbon Dioxide 24 mmol/L Normal 21-32 Anion Gap 8 mEq/L Normal 8-16 Calcium 9.1 mg/dL Normal 8.5-10.1 CBS W/Automated 07/22/2018 [facility] White Blood 7.5 K/uL Normal 3.4-10.5 [address] [place] [address] [phone] Red Blood Count 5.11 M/uL Normal 4.20-5.80 [...] 33.0-73.0 Lymph % 15.7 % Low 20.0-42.0 [place] % 9.4 % Normal 0.0-10.0 Eo% 2.9 % Normal 0.0-6.6 Bas% 0.8 % Normal 0.0-1.1 Immature Grans 2.0 % Normal 0.0-5.0 NRBC % 0.0 /100WBC < 10/ 100 WBC Neut# 5.21 K/uL Normal 1.8-7.0 Lymph # 1.18 K/uL Normal 1.0-4.0 [place] # 0.71 K/uL Normal 0.0-0.8 Eos # 0.22 K/uL Normal 0.0-0.5 Baso # 0.06 K/uL Normal 0.0-0.1 Immature Grans Absolute 0.15 K/uL NRBC # 0.00 K/uL Comprehensive Metabolic 07/22/2018 [facility] Glucose 209 mg/dL High 74-106 Panel [address] [place] [address] [phone] BUN 27 mg/dL High 7-18 Creatinine 1.5 [...] 53 U/L Normal 45-117 Laboratory test 07/22/2018 [facility] Ferritin 112 ng/mL Normal 26-388 finding [address] [place] [address] [phone] Iron-Tibc-%Sat 07/22/2018 [facility] Serum Iron 75 g/dL Normal 65-175 [address] [place] [address] [phone] Total Iron Binding Capacity 334 g/dL Normal 250-450 Transferrin %Saturation 22 % Normal 12-57 Laboratory 07/22/2018 [facility] Vitamin 28.6 Low 30.0-100.0 11 test finding [address] SHARONE D,25-Hydroxy ng/[place] [address] [phone] Vitamin B12 07/22/2018 [facility] Vitamin B12 791 Normal 193-[address] pg/[place] [address] [phone] Folic Acid 12.2 ng/mL Normal 3.1-17.5 Glycohemoglobin 05/26/2018 [facility] Glycohemoglobin 7.5 % High 4.2-6.3 12 A1c [address] [facility] (A1c) [place] [address] [phone] eAG 169 mg/dL LDL Cholesterol Profile 05/26/2018 [facility] Cholesterol 129 mg/dL <[address] [place] [address] [phone] Triglycerides 222 mg/dL High <150 14 HDL Cholesterol 38 mg/dL Low >40 15 LDL-Cholesterol 47 mg/dL < 100 16 CBS W/Automated 05/26/2018 [facility] White 7.3 K/uL Normal 3.4-10.5 17 Diff [address] [facility] [place] [address] Count [phone] Red Blood Count 5.24 M/uL Normal 4.20-5.80 [...] 33.0-73.0 Lymph % 15.2 % Low 20.0-42.0 [place] % 8.2 % Normal 0.0-10.0 Eo% 3.1 % Normal 0.0-6.6 Bas% 0.7 % Normal 0.0-1.1 Immature Grans 1.0 % Normal 0.0-5.0 NRBC % 0.0 /100WBC < 10/ 100 WBC Neut# 5.25 K/uL Normal 1.8-7.0 Lymph # 1.11 K/uL Normal 1.0-4.0 [place] # 0.60 K/uL Normal 0.0-0.8 Eos # 0.23 K/uL Normal 0.0-0.5 Baso # 0.05 K/uL Normal 0.0-0.1 Immature Grans Absolute 0.07 K/uL NRBC # 0.00 K/uL Comprehensive Metabolic 05/26/2018 [facility] Glucose 190 mg/dL High 74-106 Panel [address] [place] [address] [phone] BUN 21 mg/dL High 7-18 Creatinine 1.5 [...] U/L Normal 45-117 Vitamin B12 And 05/26/2018 [facility] Vitamin B12 836 pg/mL Normal 193-986 Folate [address] [place] [address] [phone] Folic Acid 16.9 ng/mL Normal 3.1-17.5 Laboratory 05/26/2018 [facility] Vitamin 25.7 Low 30.0-100.0 19 test finding [address] D,25-Hydroxy ng/[place] [address] [phone] Iron-Tibc-%Sa 05/26/2018 [facility] Serum Iron 79 Normal 65-[address] g/[place] [address] [phone] Total Iron Binding Capacity 352 g/dL Normal 250-450 Transferrin %Saturation 22 % Normal 12-57 Laboratory test 05/26/2018 [facility] Ferritin 112 ng/mL Normal 26-388 finding [address] [place], [place] [address] [phone] 1 J96.11 CHRONIC RESPIRATORY FAILURE WITH HYPOXIA [...] for more aggressive treatment of glycemia. The [place] [employer] recommends that a primary goal [...] assay methods cannot be used interchangeably. Method: [employer] Chemiluminescent immunoassay. 7 INFCE Result Units: s/co ratio Negative: < 0.8 Indeterminate: 0.8 - 0.9 Positive: > 0.9 The CDC recommends that a positive HCV antibody result be followed up with a HCV Nucleic Acid Amplification test (299669). Performed at: RN - [facility] [address], [place] [id number] Tin Flopper: Marissa Wick MD, Phone: [phone] Note: Persistent reduction for 3 months [...] D deficiency has been defined by the [place] [employer] and an Endocrine Society practice guideline as a level of serum 25-OH vitamin D less than 20 ng/mL (1,2). The Endocrine Society went on to further define vitamin D insufficiency as a level between 21 and 29 ng/mL (2). 1. IOM ([place] [employer]). 2010. Dietary reference intakes for calcium and D. [place]: The National Academies Press. 2. Ziyad MF, Shivani NC, Loc LAWRENCE, et al. Evaluation, treatment, and prevention of vitamin D deficiency: an Endocrine Society clinical practice guideline. JCEM. 2010; 96(7):1911-30. Performed at: RN - [facility] [address], [place] [id number] Tin Flopper: Marissa Wick MD, Phone: [phone] Elevated levels of HbA1c suggest the need for more aggressive treatment of glycemia. The [place] Diabetes Association recommends that a primary goal [...] D deficiency has been defined by the [place] and an Endocrine Society practice guideline as a level of serum 25-OH vitamin D less than 20 ng/mL (1,2). The Endocrine Society went on to further define vitamin D insufficiency as a level between 21 and 29 ng/mL (2). 1. IOM ([employer]). 2010. Dietary reference intakes for calcium and D. [place]: The National Academies Press. 2. Ziyad MF, Shivani PEDRAZA, Loc LAWRENCE, et al. Evaluation, treatment, and prevention of vitamin D deficiency: an Endocrine Society clinical practice guideline. JCEM. 2010; 96(7):1911-30. Performed at: RN - [facility] [address] [id number] Tin Flopper: Marissa Wick MD, Phone: [phone] Procedures Date Code Description Status 09/07/2018 22266 Pressurized/Non-Pressurized Inhalation Treatment,Acute Completed Obstructio 09/02/2018 47261 Pulse Oximetry With Activity Completed 08/08/2018 84585 Debridement Nails Any Method 6 Or More Completed 05/24/2018 41462 Debridement Nails Any Method 6 Or More Completed 01/08/2018 [id number] Diabetic Foot Exam Completed 01/11/2017 07248129 Flexible Sigmoidoscopy Completed 01/23/2016 [id number] Colonoscopy Completed 05/29/2005 [id number] Colonoscopy Completed Medical Devices Description No Information Available Encounters Type Date Location Provider Dx Diagnosis Office Visit 09/30/2018 Primary Care Lonnie, S80.921A Unsp superficial 9:45a Office ROMARIO Savage injury of right lower leg, init encntr Office Visit 09/16/2018 Primary Care Lizy, E11.22 Type 2 diabetes 9:30a Office MS Maggie, mellitus w diabetic HAND CEMENTER-C, CNM chronic kidney disease R05 Cough R06.2 Wheezing J06.9 Acute upper respiratory infection, unspecified R06.02 Shortness of breath R63.4 Abnormal weight loss Office Visit 09/07/2018 9:00a Primary Care Office Maggie Medel MS, R05 Cough HAND CEMENTER-C, CNM E11.22 Type 2 diabetes mellitus w [...] Maggie Medel M54.5 Low back Office MS, HAND CEMENTER-C, CNM pain E11.22 Type 2 diabetes mellitus w diabetic chronic kidney disease Z11.59 Encounter for screening for other viral diseases Z12.5 Encounter for screening for malignant neoplasm of prostate Office Visit 08/08/2018 8:00a Podiatry Office Constantine Vann, E11.9 Type 2 diabetes DPM mellitus without complications I70.203 Unsp athscl [place] arteries of extremities, bilateral legs B35.1 Tinea unguium S90.811A Abrasion, right foot, initial encounter 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 calories K42.9 Umbilical hernia without obstruction or gangrene Z72.0 Tobacco use Office Visit 06/17/2018 10:30a Primary Care Maggie Medel M54.5 Low back Office MS, HAND CEMENTER-C, CNM pain E66.09 Other obesity due to excess calories Z71.6 Tobacco abuse counseling Office Visit 06/10/2018 8:00a Oncology Office Yamini E61.1 Iron deficiency DO Jessi E53.9 Vitamin B deficiency, unspecified E55.9 Vitamin D deficiency, unspecified Assessments Date Code Description Provider 09/30/2018 S80.921A Unspecified superficial injury of Dee Dee Fleming PA right lower leg, initial encounter 09/29/2018 J96.11 Chronic respiratory failure with Devora Dawson PA hypoxia 09/28/2018 D64.9 Anemia, unspecified Jessi Kc, DO 09/28/2018 D64.9 Anemia, unspecified Oncology Nurse 09/28/2018 E61.1 Iron deficiency VinayJessi andres, DO 09/28/2018 E61.1 Iron deficiency Oncology Nurse 09/16/2018 E11.22 Type 2 diabetes mellitus with Lizy, Maggie, MS, HAND CEMENTER-C , diabetic chronic kidney diseas CN 09/16/2018 R05 Cough Svetlanaen, Maggie, MS, HAND CEMENTER-C, CNM 09/16/2018 R06.2 Wheezing Svetlanaen, Maggie, MS, HAND CEMENTER-C, CN 09/16/2018 J06.9 Acute upper respiratory infection, Lizy, Maggie, MS, HAND CEMENTER-C, unspecified [facility] 09/16/2018 R06.02 Shortness of breath Lizy, Maggie, MS, HAND CEMENTER-C, CN 09/16/2018 R63.4 Abnormal weight loss Jayla Medelline, MS, HAND CEMENTER-C, CN 09/07/2018 R05 Cough Svetlanaen, Maggie, MS, HAND CEMENTER-C, CN 09/07/2018 E11.22 Type 2 diabetes mellitus with Lizy, Maggie, MS, HAND CEMENTER-C , diabetic chronic kidney diseas [facility] 09/07/2018 R06.2 Wheezing Lizy, Maggie, MS, HAND CEMENTER-C, CN 09/07/2018 J06.9 Acute upper respiratory infection, Lizy, Maggie, MS, HAND CEMENTER-C, unspecified [facility] 09/07/2018 R06.02 Shortness of breath Jayla Medelline, MS, HAND CEMENTER-C, CN 09/07/2018 E66.01 Morbid (severe) obesity due to Maggie Medel, MS, HAND CEMENTER- C, excess calories [facility] 09/07/2018 Z71.6 Tobacco abuse counseling Jayla Medelline, MS, HAND CEMENTER-C, CN 09/02/2018 G47.33 Obstructive sleep apnea (adult) Devora [...] M54.5 Low back pain Maggie Medel, MS, HAND CEMENTER-C, [facility] 08/22/2018 E11.22 Type 2 diabetes mellitus with Gagkristin, Maggie, MS, HAND CEMENTER-C , diabetic chronic kidney diseas [facility] 08/22/2018 Z11.59 Encounter for screening for other Lizy, Maggie, MS, HAND CEMENTER-C, viral diseases [facility] 08/22/2018 Z12.5 Encounter for screening for Gagen, Maggie, MS, HAND CEMENTER-C, malignant neoplasm of prostate [facility] 08/19/2018 E55.9 Vitamin D deficiency, unspecified Jessi Kc, DO 08/19/2018 E55.9 Vitamin D deficiency, unspecified Oncology Nurse 08/19/2018 E61.1 Iron deficiency Jessi Kc, DO 08/19/2018 E61.1 Iron deficiency Oncology Nurse 08/19/2018 E53.9 Vitamin B deficiency, unspecified Jessi Kc, DO 08/19/2018 E53.9 Vitamin B deficiency, unspecified Oncology Nurse 08/09/2018 E66.09 Other obesity due to excess Gagkristin, Maggie, MS, HAND CEMENTER-C, calories [facility] 08/09/2018 Z72.0 Tobacco use Maggie Medel, MS, HAND CEMENTER-C, [facility] 08/09/2018 M54.5 Low back pain Maggie Medel, MS, HAND CEMENTER-C, CNM 08/09/2018 E55.9 Vitamin D deficiency, unspecified Maggie Medel, , HAND CEMENTER-C, CNM 08/09/2018 N18.3 Chronic kidney disease, stage 3 Maggie Medel, , HAND CEMENTER- C, (moderate) CNM 08/08/2018 E11.9 Type 2 diabetes mellitus without EdwarConstantine, GENOVEVA complications 08/08/2018 I70.203 Unspecified atherosclerosis of EdwarConstantine, DPDaisy [place] arteries of extremities, bilateral legs 08/08/2018 B35.1 Tinea unguium Constantine Vann, DPM 08/08/2018 S90.811A Abrasion, right foot, initial EdwarConstantine, DP encounter 08/08/2018 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, left foot Edwar Constantine, DPM 08/08/2018 Q66.51 Congenital pes planus, right foot EdwarConstantine, M 07/29/2018 E53.9 Vitamin B deficiency, unspecified BorebeccaalCameront, DO 07/29/2018 E61.1 Iron deficiency BhavinalCameront, DO 07/29/2018 E55.9 Vitamin D deficiency, unspecified Borebeccaal, Jessi, DO 07/22/2018 D64.9 Anemia, unspecified Boufal, Jessi, DO 07/22/2018 D64.9 Anemia, unspecified Oncology Nurse 07/22/2018 E61.1 Iron deficiency Cameron Kct, DO 07/22/2018 E61.1 Iron deficiency Oncology Nurse 07/07/2018 E66.09 Other obesity due to excess [place], calories [place] 07/07/2018 K42.9 Umbilical hernia without [place] obstruction or gangrene M.DMarta 07/07/2018 Z72.0 Tobacco use [place] M.D. 06/17/2018 M54.5 Low back pain Maggie Medel, , HAND CEMENTER-C, CNM 06/17/2018 E66.09 Other obesity due to excess Maggie Medel, MS, HAND CEMENTER-C, calories [facility] 06/17/2018 Z71.6 Tobacco abuse counseling Maggie Medel, MS, HAND CEMENTER-C, CNM 06/10/2018 E61.1 Iron deficiency Jessi Kc, [...] Kathia Chowdhury MD 05/26/2018 D64.9 Anemia, unspecified Yamini Jessi, DO 05/26/2018 D64.9 Anemia, unspecified Oncology Nurse 05/26/2018 E61.1 Iron deficiency Jessi Kc, DO 05/26/2018 E61.1 Iron deficiency Oncology Nurse 05/24/2018 I70.203 Unspecified atherosclerosis of Constantine Vann DPM [place] arteries of extremitie 05/24/2018 E11.9 Type 2 diabetes mellitus without Constantine Vann DPM complications 05/24/2018 B35.1 Tinea unguium Constantine Vann DPM Plan of Treatment Future Appointment(s):10/26/2018 8:00 am - Moris Dan PA at Cardiology Gkkybc9809/05/2019 9:00 am - Devora Dawson PA at Uanpxrdkval41/30/ 2019 8:30 am - Maggie Medel, MS, CAMILA, CNM at Primary Care Office Functional Status [...] may not be option Dr. Wong only [id number] [id number] [phone]
[2018-10-12 13:48] VITALS: BP 132/46
--- NOTE | 2018-10-12 14:02 | UC ---
Throat Pain/Nasal Aleks HPI - HPI Summary HPI Summary: swollen right side of face x 1 day , at the right jaw angle no redness, no pain , no fever, no chills nothing makes it better or worse mild sore throat, mild neck pain - History of Current Complaint Chief Complaint: UCGeneralIllness Stated Complaint: RIGHT SIDE FACIAL PAIN/SWELLING Time Seen by Provider: 10/12/18 13:51 Hx Obtained From: Patient Onset/Duration: Gradual Onset, Lasting Days - 1, Still Present Severity: Moderate Pain Intensity: 5 Cough: None Associated Signs & Symptoms: Negative: Hoarseness, Sinus Discomfort, Nasal Discharge, Fever, Rash - Allergies/Home Medications Allergies/Adverse Reactions: Allergies Allergy/AdvReac Type Severity Reaction Status Date / Time acetaminophen [From Percocet] Allergy Swelling Verified 10/12/18 13:48 Of Face,Lips,& Throat aspirin Allergy Nausea Verified 10/12/18 13:49 oxycodone [From Percocet] Allergy Swelling Verified 10/12/18 13:48 Of Face,Lips,& Throat PMH/Surg Hx/FS Hx/Imm Hx Endocrine History: Diabetes Cardiovascular History: Cardiac Disease, Hypertension Respiratory History: COPD Other History Of: Anticoagulant Therapy - Coumadin. Negative For: HIV, Hepatitis B, Hepatitis C - Surgical History Surgical History: Yes Surgery Procedure, Year, and Place: Both knees, L carpel tunnel, uvula removed, L foot - Family History Known Family History: Positive: Diabetes Negative: Cardiac Disease, Hypertension - Social History Alcohol Use: Rare Substance Use Type: None Smoking Status (MU): Light Every Day Tobacco Smoker Type: Cigarettes Amount Used/How Often: 1/2 ppd Length of Time of Smoking/Using Tobacco: 40 + yrs Have You Smoked in the Last Year: Yes - Immunization History Most Recent Influenza Vaccination: 2016 Most Recent Tetanus Shot: OVER 5 YEARS AOG Review of Systems All Other Systems Reviewed And Are Negative: Yes Constitutional: Positive: Negative Skin: Positive: Negative Eyes: Positive: Negative ENT: Positive: Sore Throat Respiratory: Positive: Negative Is Patient Immunocompromised?: No Physical Exam Triage Information Reviewed: Yes Appearance: Well-Appearing, No Pain Distress, Obese Vital Signs: Initial Vital Signs Temp 98.1 F 10/12/18 13:44 Pulse 94 10/12/18 13:44 Resp 22 10/12/18 13:44 BP 132/46 10/12/18 13:44 Pulse Ox 95 10/12/18 13:44 Vital Signs Reviewed: Yes Eye Exam: Normal Eyes: Positive: Conjunctiva Clear ENT: Positive: Normal ENT inspection, Hearing grossly normal, Pharynx normal, Other - swollen right parotid gland , no tenderness Neck: Positive: Supple, Nontender, No Lymphadenopathy Respiratory: Positive: Chest non-tender, Lungs clear, Normal breath sounds Cardiovascular: Positive: RRR, No Murmur, Pulses Normal Skin Exam: Normal Throat Pain/Nasal Course/Dx - Differential Dx/Diagnosis Provider Diagnosis: Parotid gland enlargement Discharge ED - Sign-Out/Discharge Documenting (check all that apply): Patient Departure All imaging exams completed and their final reports reviewed: No Studies - Discharge Plan Condition: Stable Disposition: HOME Prescriptions: Amoxicillin PO (*) [Amoxicillin 875 MG (*)] 875 mg PO BID #20 tab Patient Education Materials: Sialoadenitis (ED) Referrals: Kathia Chowdhury MD [Primary Care Provider] - 5 Days - Billing Disposition and Condition Condition: STABLE Disposition: Home
== END 2018-10-12 14:08 | disposition home or self-care (01) ==
LOC: UCCORT 13:27
DX: R59.9 Enlarged lymph nodes, unspecified (principal); E11.9 Type 2 diabetes mellitus without complications; I10 Essential (primary) hypertension; Z79.01 Long term (current) use of anticoagulants; F17.210 Nicotine dependence, cigarettes, uncomplicated
CPT/HCPCS: 99212; G0463

== ENCOUNTER 2018-11-19 09:30 | Emergency (ER) | payer BC, MEDICARE ==
--- OUTSIDE RECORDS SUMMARY | 2018-11-19 10:06 | XMS REPORT | Continuity of Care Document ---
:1950 External Reference #:[id number] Author Name Iker Benitez M.D. (transmitted by agent of provider Linda Pace) Address [address] [place] [address] Care Team Providers Name Role Phone Varun Aranda MD Care Team Information Coat Maker [phone] Problems Active Problems Provider Date Obstructive sleep apnea syndrome Cale Menard MD Onset: 09/04/2010 Social History Type Date Description Comments Sex Unknown Tobacco Use Start: Unknown Currently smokes 1-5 Cigarettes Daily ETOH Use Rarely consumes alcohol Recreational Drug Use Has Used In Past Allergies, Adverse Reactions, Alerts Active Allergies Reaction Severity Comments Date Percocet DIFF. BREATHING 05/06/2009 Lorcet 07/31/2010 Aspirin regular strength GI Upset 03/18/2015 Medications Active Medications SIG Qnty Indications Ordering Provider Date Ipratropium [place] 2 squirts each 30ml Iker Benitez M.D. 04/06/2018 0.03% nostril 2 times a Solution day as needed Glimepiride bid Unknown 4mg Tablets Potassium Gluconate qday Unknown 99mg Tablets Aspirin qday Unknown 81mg Tablets Vitamin D qweek Unknown (Ergocalciferol) [id number] Capsules Vitamin C Qday Unknown 1000mg Tablets Levemir 55Iu AT Bedtime Unknown Solution Metoprolol Succinate 1 by mouth every Unknown ER day 50mg Tablets ER 24HR Ramipril 1 by mouth every Unknown 2.5mg Capsules day Cartia XT 1 PO qd Unknown 180mg Caps ER 24HR Torsemide 1 by mouth every Unknown 20mg Tablets day Fenofibrate 1 by mouth every Unknown 48mg Tablets day Colace 1 by mouth twice Unknown 100mg Capsules a day Omeprazole 1 by mouth every Unknown 20mg Capsules day Immunizations Description No Information Available Vital Signs Date Vital Result Comment 10/14/2018 8:29am Weight 369.00 lb Height 70.25 inches 5'10.25" BMI (Body Mass Index) 52.6 kg/m2 BP Systolic 112 mmHg BP Diastolic 69 mmHg Heart Rate 77 /min O2 % BldC Oximetry 95 % Body Temperature 97.9 F Pain Level 4 04/06/2018 7:55am Weight 373.00 lb Height 70.25 inches 5'10.25" BMI (Body Mass Index) 53.1 kg/m2 BP Systolic 130 mmHg BP Diastolic 75 mmHg Heart Rate 79 /min O2 % BldC Oximetry 90 % Body Temperature 97.2 F [place] Score 7 Pain Level 7 Results Description No Information Available Procedures Description No Information Available Medical Devices Description No Information Available Encounters Description No Information Available Assessments Description No Information Available Plan of Treatment Future Appointment(s):10/21/2018 10:30 am - Iker Benitez M.D. at Main Office Functional Status Description No Information Available Mental Status Description No Information Available Referrals Description No Information Available
--- OUTSIDE RECORDS SUMMARY | 2018-11-19 10:06 | XMS REPORT | Continuity of Care Document ---
:1950 External Reference #:[id number] Author Name Iker Benitez M.D. (transmitted by agent of provider Loretta Grewal) Address [address] [place] [address] Care Team Providers Name Role Phone Varun Aranda MD Care Team Information [employer]. Senator [phone] Problems Active Problems Provider Date Obstructive sleep [...] SIG Qnty Indications Ordering Provider Date Ipratropium [place] 2 squirts each 30ml Iker Benitez M.D. 04/06/2018 0.03% nostril 2 times a Solution day as needed Glimepiride bid Unknown 4mg Tablets Potassium Gluconate qday Unknown 99mg Tablets Aspirin qday Unknown 81mg Tablets Vitamin D qweek Unknown (Ergocalciferol) [id number] Capsules Vitamin C Qday Unknown 1000mg Tablets [...] Available Vital Signs Date Vital Result Comment 10/21/2018 10:24am Weight 372.00 lb Height 70.25 inches 5'10.25" BMI (Body Mass Index) 53.0 kg/m2 BP Systolic 109 mmHg BP Diastolic 56 mmHg Heart Rate 70 /min O2 % BldC Oximetry 93 % Body Temperature 98.6 F Pain Level 0 10/14/2018 8:29am Weight 369.00 lb Height 70.25 inches 5'10.25" BMI (Body Mass Index) 52.6 kg/m2 BP Systolic 112 mmHg BP Diastolic 69 mmHg Heart Rate 77 /min O2 % BldC Oximetry 95 % Body Temperature 97.9 F Pain Level 4 Results Description No Information Available Procedures Date Code Description Status 10/14/2018 30192 IV Infusion, Hydration Each Additional Hour Completed 10/14/2018 85744 IV Infusion, Hydration, 31 Minutes To 1 Hour Completed 10/14/2018 78335 Ultrasound Head/Neck Completed Medical Devices Description No Information Available Encounters Type Date Location Provider Dx Diagnosis Office Visit 10/14/2018 8:45a Main Office Iker Benitez M.D. E86.0 Dehydration K11.20 Sialoadenitis, unspecified G47.33 Obstructive sleep apnea (adult) (pediatric) E66.9 Obesity, unspecified Assessments Date Code Description Provider 10/14/2018 E86.0 Dehydration Iker Benitez M.D. 10/14/2018 K11.20 Sialoadenitis, unspecified Iker Benitez M.D. 10/14/2018 G47.33 Obstructive sleep apnea (adult) (pediatric) Iker Benitez M.D. 10/14/2018 E66.9 Obesity, unspecified Iker Benitez M.D. Plan of Treatment No Information Available Functional Status Description No Information Available Mental Status Description No Information Available Referrals Description No Information Available
--- OUTSIDE RECORDS SUMMARY | 2018-11-19 10:06 | XMS REPORT | Continuity of Care Document ---
:1950 External Reference #:[id number] Author Name Moris Dan PA (transmitted by agent of provider Ousmane Mustafa) Address [address], [address] [place] [address] Care Team Providers Name Role Phone Kathia Chowdhury MD - Internal Medicine Care Team Information Internal Medicine Doctor Problems Active Problems Provider Date Acute diastolic heart failure Ousmane Mustafa MD Onset: 07/19/2015 Atrial flutter Ousmane Mustafa MD Onset: 07/19/2015 Paroxysmal atrial fibrillation Ousmane Mustafa MD Onset: 07/19/2015 Anemia Jessi Kc DO Onset: 09/07/2016 Iron deficiency Jessi Kc DO Onset: 09/07/2016 Combined systolic and diastolic Linda Lujan, MSN, 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 PATROL CAPTAIN Aortic valve disorder Linda Lujan, MSN, Onset: 10/14/2016 PATROL CAPTAIN Chronic kidney disease stage 3 Linda Lujan, MSN, Onset: 10/14/2016 PATROL CAPTAIN Type 2 diabetes mellitus Kathia Chowdhury MD [...] Start: Unknown Heavy tobacco smoker (more than 3/4 pack 10 cigarettes/day) Recreational Drug Use Denies Drug Use Smoking Status Reviewed: 10/26/18 Heavy tobacco smoker (more than 3/4 pack 10 cigarettes/day) Exercise Type/Frequency Exercises rarely Allergies, Adverse Reactions, Alerts Active Allergies Reaction Severity Comments Date Aspirin 325mg GI upset 08/10/2014 Oxycodone dyspnea 08/10/2014 Medications Active Medications SIG Qnty Indications Ordering Date Provider Glucose Testing To take blood 120units Kathia Chowdhury, 08/26/2018 Strips, Fingerstick sugars fasting MD and 2 hrs after Strips meals E11.22 D-Care Glucometer To take blood 1units Kathia Chowdhury, 08/24/2018 Kit/Glucose Test sugars fasting MD Strips [...] day Stool Softener Take One Capsule 180caps Kathia Chowdhury, 07/12/2018 100mg By Mouth Twice A MD Capsules Day Cyclobenzaprine HCL take 1 tablet by 30tabs M54.5 Cuong Chowdhurya, 2018 10mg mouth two times a MD Tablets day as needed for muscle spasms Trulicity 0.75mg once a 6ml E11.22 Kathia Chowdhury, 06/02/2018 0.75mg/0.5ML week MD Solution Pen-Inject Ventolin HFA 1-2 puffs q6hr as 8gm Kathia Chowdhury, 07/30/2017 108(90Base) needed for SOB, mcg/Act Aerosol cough Novofine as directed 300units E11.22 Ktahia Chowdhury, 04/02/2017 32G X 6 mm Misc (Decker) Torsemide 2 by mouth twice I50.32 Froy, 03/09/2017 20mg Tablets a day prn Oskar Parks M.D., [facility] Metolazone 1 tab by mouth 30tabs I50.40 Linda Lujan 10/14/2016 2.5mg Tablets 1/2 hour prior to GEOFF Burleson, in the morning PATROL CAPTAIN torsemide for weight gain of 2-3 over [...] By Mouth Every GEOFF Burleson, 24HR Day PATROL CAPTAIN SSD Apply A Thin Unknown 1% Cream Layer To Wounds On Skin Daily Vitamin B12 1 by mouth once a Unknown 1000mcg day Tablets ER Levemir Flextouch Inject 60 Units 60ml Kathia Chowdhury, AT Bedtime 100Unit/ML Solution Pen-Inject Ramipril take one capsule 90caps Kathia Chowdhury, 2.5mg Capsules by mouth every MD day Fenofibrate Micronized 1 by mouth every 30caps Kathia Chowdhury, day 67mg Capsules Metoprolol Tartrate Take One Tablet 180tabs Ousmane Mustafa MD 50mg By Mouth Twice A Tablets Day [facility] D3 Once A Day Tu, Unknown 2000Unit Capsules , sat, sun two a day wed Glimepiride 1 tab by mouth 90tabs Gagen, 4mg Tablets every day MS Maggie, PATROL CAPTAIN-C, CNM Baby Aspir 1 by mouth every Unknown 81mg Tablets day DR BECKWITH Vitamin C 1 tab qd Unknown 1000mg Tablets History Medications Prednisone 2 tabs (40 mg) 10tabs R06.2 Kathia Chowdhury 09/07/2018 - 20mg Tablets daily for 5 days 09/16/2018 Doxycycline Monohydrate take one twice a 20caps R05 Kathia Chowdhury, 2018 - day Unknown 100mg Capsules Fluticasone Propionate take one spray 1units J06.9 Kathia Chowdhury 2018 - Nasal [place] 24- Hour in each nostril 09/16/2018 in morning 50mcg/Act Suspension Naproxen Sodium Take one every 30tabs M54.5 Kathia Chowdhury, 06/17/2018 - 275mg 12 hrs for back 09/01/2018 Tablets pain Ergocalciferol 1 cap by mouth 2caps Yamini 06/10/2018 - [id number] every week DO Jessi Unknown Capsules Medications Administered in Office Medication SIG Qnty Indications Ordering Provider Date Vitamin B12 Injection 1000 Oncology Nurse 12/03/2017 mcg/Ml Injection Vitamin B12 Injection 1000 Jessi Kc DO 11/05/2017 mcg/Ml Injection Vitamin B12 Injection 1000 Yelitza Veloz NP 06/28/2017 mcg/Ml Injection Theraputic Or Diagnostic Yelitza Veloz NP 06/28/2017 Injection Injection Immunizations CPT Code Status Date Vaccine Lot # [id number] Given 06/02/2018 Pneumovax Injection [id number] Given 10/14/2017 Influenza High Dose [id number] Given 12/22/2016 Tdap injection [id number] Vital Signs Date Vital Result Comment 10/26/2018 7:59am BP Systolic Sitting Right Arm 126 mmHg BP Diastolic Sitting Right Arm 81 mmHg Heart Rate 107 /min Respiratory Rate 20 /min Height 71 inches 5'11", As per patient Weight 370.00 lb BMI (Body Mass Index) 51.6 kg/m2 BSA (Body Surface Area) 2.74 m2 [place] body weight in kilograms 78 kg O2 % BldC Oximetry 96 % ra 10/11/2018 7:51am BP Systolic 137 mmHg BP Diastolic 75 mmHg Body Temperature 97.9 F Heart Rate 95 /min Height 71 inches 5'11", As per patient Weight 373.00 lb BMI (Body Mass Index) 52.0 kg/m2 BSA (Body Surface Area) 2.75 m2 [place] body weight in kilograms 78 kg O2 % BldC Oximetry 96 % Results Test Date Facility Test Result H/L Range Note Nocturnal Oximetry 09/29/2018 [facility] Low Oximetry 85 % Low 93-98 1 [address] [place] [address] [phone] Fio2 21 Normal 21-100 Heart Rate 70 BPM Duration Of Study 317 MINUTES Total Time Below 88% 24.9 MINUTES Continuous Oximetry 09/29/2018 [facility] Oximetry 93 % Normal 93-98 [address] [place] [address] [phone] Fio2 21 Normal 21-100 Heart Rate 70 BPM Patient Status RESTING CBS W/Automated 09/28/2018 [facility] White Blood 7.9 K/uL Normal 3.4-10.[address] Count [place], [place] [id number] [phone] Red Blood Count 4.80 M/uL Normal 4.20-5.80 [...] 33.0-73.0 Lymph % 13.8 % Low 20.0-42.0 [place] % 8.7 % Normal 0.0-10.0 Eo% 2.8 % Normal 0.0-6.6 Bas% 0.5 % Normal 0.0-1.1 Immature Grans 1.5 % Normal 0.0-5.0 NRBC % 0.0 /100WBC < 10/ 100 WBC Neut# 5.74 K/uL Normal 1.8-7.0 Lymph # 1.09 K/uL Normal 1.0-4.0 [place] # 0.69 K/uL Normal 0.0-0.8 Eos # 0.22 K/uL Normal 0.0-0.5 Baso # 0.04 K/uL Normal 0.0-0.1 Immature Grans Absolute 0.12 K/uL NRBC # 0.00 K/uL Comprehensive Metabolic 09/28/2018 [facility] Glucose 135 mg/dL High 74-106 Panel [address] [place] [address] [phone] BUN 23 mg/dL High 7-18 Creatinine 1.6 [...] U/L Normal 45-117 Vitamin B12 And 09/28/2018 [facility] Vitamin B12 858 pg/mL Normal 193-986 Folate [address] [place] [address] [phone] Folic Acid 11.5 ng/mL Normal 3.1-17.5 Iron-Tibc-%Sat 09/28/2018 [facility] Serum Iron 56 g/dL Low 65-175 [address] [place] [address] [phone] Total Iron Binding Capacity 317 g/dL Normal 250-450 Transferrin %Saturation 18 % Normal 12-57 Laboratory test 09/28/2018 [facility] Ferritin 84 Normal 26-[address] ng/[place] [address] [phone] Glycohemoglobin 08/19/2018 [facility] Glycohemoglobin 7.4 % High 4.2-6.3 4, A1c [address] (A1c) [address] [place] [address] [phone] eAG 166 mg/dL Laboratory test 08/19/2018 [facility] Prostate 0.57 ng/mL < 4.0 [address] [place] [address] [phone] Hepatitis C Antibody < 0.1 s/corat 0.0-0.9 7 Basic Metabolic Panel 08/19/2018 [facility] Glucose 238 mg/dL High 74-[address] [place] [address] [phone] BUN 19 mg/dL High 7-18 Creatinine 1.3 mg/dL Normal 0.6-1.3 Glom Filtration Rate, Estimate 59 mL/min >60 If >60 mL/min >60 8 BUN/Creat 14.6 ratio Sodium 137 mmol/L Normal 136-145 Potassium 5.1 mmol/L Normal 3.5-5.1 Chloride 105 mmol/L Normal 98-107 Carbon Dioxide 24 mmol/L Normal 21-32 Anion Gap 8 mEq/L Normal 8-16 Calcium 9.1 mg/dL Normal 8.5-10.1 CBS W/Automated 07/22/2018 [facility] White Blood 7.5 K/uL Normal 3.4-10.5 [address] [place] [address] [phone] Red Blood Count 5.11 M/uL Normal 4.20-5.80 [...] 33.0-73.0 Lymph % 15.7 % Low 20.0-42.0 [place] % 9.4 % Normal 0.0-10.0 Eo% 2.9 % Normal 0.0-6.6 Bas% 0.8 % Normal 0.0-1.1 Immature Grans 2.0 % Normal 0.0-5.0 NRBC % 0.0 /100WBC < 10/ 100 WBC Neut# 5.21 K/uL Normal 1.8-7.0 Lymph # 1.18 K/uL Normal 1.0-4.0 [place] # 0.71 K/uL Normal 0.0-0.8 Eos # 0.22 K/uL Normal 0.0-0.5 Baso # 0.06 K/uL Normal 0.0-0.1 Immature Grans Absolute 0.15 K/uL NRBC # 0.00 K/uL Comprehensive Metabolic 07/22/2018 [facility] Glucose 209 mg/dL High 74-106 Panel [address] [place] [address] [phone] BUN 27 mg/dL High 7-18 Creatinine 1.5 [...] 53 U/L Normal 45-117 Laboratory test 07/22/2018 [facility] Ferritin 112 ng/mL Normal 26-388 finding [address] [place] [address] [phone] Iron-Tibc-%Sat 07/22/2018 [facility] Serum Iron 75 g/dL Normal 65-175 [address] [place] [address] [phone] Total Iron Binding Capacity 334 g/dL Normal 250-450 Transferrin %Saturation 22 % Normal 12-57 Laboratory 07/22/2018 [facility] Vitamin 28.6 Low 30.0-100.0 11 test finding [address] D,25-Hydroxy ng/[place] [address] [phone] Vitamin B12 07/22/2018 [facility] Vitamin B12 791 Normal 193-[address] pg/[place] [address] [phone] Folic Acid 12.2 ng/mL Normal 3.1-17.5 Glycohemoglobin 05/26/2018 [facility] Glycohemoglobin 7.5 % High 4.2-6.3 12 A1c [address] (A1c) [place] [address] [phone] eAG 169 mg/dL LDL Cholesterol Profile 05/26/2018 [facility] Cholesterol 129 mg/dL <[address] [place] [address] [phone] Triglycerides 222 mg/dL High <150 14 HDL Cholesterol 38 mg/dL Low >40 15 LDL-Cholesterol 47 mg/dL < 100 16 CBS W/Automated 05/26/2018 [facility] White 7.3 K/uL Normal 3.4-10.5 17 Diff [address] [place] [address] Count [phone] Red Blood Count 5.24 M/uL Normal 4.20-5.80 [...] 33.0-73.0 Lymph % 15.2 % Low 20.0-42.0 [place] % 8.2 % Normal 0.0-10.0 Eo% 3.1 % Normal 0.0-6.6 Bas% 0.7 % Normal 0.0-1.1 Immature Grans 1.0 % Normal 0.0-5.0 NRBC % 0.0 /100WBC < 10/ 100 WBC Neut# 5.25 K/uL Normal 1.8-7.0 Lymph # 1.11 K/uL Normal 1.0-4.0 [place] # 0.60 K/uL Normal 0.0-0.8 Eos # 0.23 K/uL Normal 0.0-0.5 Baso # 0.05 K/uL Normal 0.0-0.1 Immature Grans Absolute 0.07 K/uL NRBC # 0.00 K/uL Comprehensive Metabolic 05/26/2018 [facility] Glucose 190 mg/dL High 74-106 Panel [address] [place] [address] [phone] BUN 21 mg/dL High 7-18 Creatinine 1.5 [...] U/L Normal 45-117 Vitamin B12 And 05/26/2018 [facility] Vitamin B12 836 pg/mL Normal 193-[address] [place] [address] [phone] Folic Acid 16.9 ng/mL Normal 3.1-17.5 Laboratory 05/26/2018 [facility] Vitamin 25.7 Low 30.0-100.0 19 test finding [address] D,25-Hydroxy ng/[place] [address] [phone] Iron-Tibc-%Sa 05/26/2018 [facility] Serum Iron 79 Normal 65-[address] g/[place] [address] [phone] Total Iron Binding Capacity 352 g/dL Normal 250-450 Transferrin %Saturation 22 % Normal 12-57 Laboratory test 05/26/2018 [facility] Ferritin 112 ng/mL Normal 26-[address] [place] [address] [phone] 1 J96.11 CHRONIC RESPIRATORY FAILURE WITH HYPOXIA [...] for more aggressive treatment of glycemia. The [place] [employer] Association recommends that a primary goal [...] methods cannot be used interchangeably. Method: Siemens BemDireto [place] Chemiluminescent immunoassay. 7 INFCE Result Units: s/co ratio Negative: < 0.8 Indeterminate: 0.8 - 0.9 Positive: > 0.9 The CDC recommends that a positive HCV antibody result be followed up with a HCV Nucleic Acid Amplification test ([id number]). Performed at: - [facility] [id number] Sock Lining Examiner: Marissa Wick MD, Phone: [phone] Note: Persistent reduction for 3 months [...] D deficiency has been defined by the [place] [employer] and an Endocrine Society practice guideline as a level of serum 25-OH vitamin D less than 20 ng/mL (1,2). The Endocrine Society went on to further define vitamin D insufficiency as a level between 21 and 29 ng/mL (2). 1. IOM ([place] [employer]). 2010. Dietary reference intakes for calcium and D. [place]: The National Academies Press. 2. Ziyad MF, Shivani NC, Nikkie-Andrew LAWRENCE, et al. Evaluation, treatment, and prevention of vitamin D deficiency: an Endocrine Society clinical practice guideline. JCEM. 2010; 96(7):1911-30. Performed at: [facility] [id number] Sock Lining Examiner: Marissa Wick MD, Phone: [phone] Elevated levels of HbA1c suggest the need for more aggressive treatment of glycemia. The [place] Diabetes Association recommends that a primary goal [...] D deficiency has been defined by the [place] [employer] and an Endocrine Society practice guideline as a level of serum 25-OH vitamin D less than 20 ng/mL (1,2). The Endocrine Society went on to further define vitamin D insufficiency as a level between 21 and 29 ng/mL (2). 1. IOM ([place] [employer]). 2010. Dietary reference intakes for calcium and D. [place]: The National Academies Press. 2. Ziyad MF, Shivani PEDRAZA, Loc LAWRENCE, et al. Evaluation, treatment, and prevention of vitamin D deficiency: an Endocrine Society clinical practice guideline. JCEM. 2010; 96(7):1911-30. Performed at: RN - [facility] [address] [id number] Sock Lining Examiner: Marissa Wick MD, Phone: [phone] Procedures Date Code Description Status 10/26/2018 96399 EKG-Tracing And Report Completed 10/11/2018 13014 Debridement Nails Any Method 6 Or More Completed 09/29/2018 30283 Bronchospasm Provocation Evaluation Multi Spirometric Completed Determinati 09/29/2018 81754 Spirometry Completed 09/07/2018 39814 Pressurized/Non-Pressurized Inhalation Treatment,Acute Completed Obstructio 09/02/2018 67579 Pulse Oximetry With Activity Completed 08/08/2018 56190 Debridement Nails Any Method 6 Or More Completed 05/24/2018 40198 Debridement Nails Any Method 6 Or More Completed 01/08/2018 620846193 Diabetic Foot Exam Completed 01/11/2017 14878194 Flexible Sigmoidoscopy Completed 01/23/2016 64672148 Colonoscopy Completed 05/29/2005 12203196 Colonoscopy Completed Medical Devices Description No Information Available Encounters Type Date Location Provider Dx Diagnosis Office Visit 10/26/2018 Cardiology Office Moris Dan I35.0 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 Duong (valve) stenosis F17.210 Nicotine dependence, cigarettes, uncomplicated E78.2 Mixed hyperlipidemia R00.0 Tachycardia, unspecified G47.33 Obstructive sleep apnea (adult) (pediatric) E66.01 Morbid (severe) obesity due to excess calories Office Visit 09/30/2018 9:45a Primary Care Lonnie, S80.921A Unsp superficial Office ROMARIO Savage injury of right lower leg, init encntr Office Visit 09/16/2018 9:30a Primary Care Lizy, E11.22 Type 2 diabetes Office MS Maggie, mellitus w PATROL CAPTAIN-C, CNM diabetic chronic kidney disease R05 Cough R06.2 Wheezing J06.9 Acute upper respiratory infection, unspecified R06.02 Shortness of breath R63.4 Abnormal weight loss Office Visit 09/07/2018 9:00a Primary Care Office Maggie Medel MS, R05 Cough PATROL CAPTAIN-C, CNM E11.22 Type 2 diabetes mellitus w [...] Office Visit 08/22/2018 9:30a Primary Care Maggie Medel, M54.5 Low back Office MS, PATROL CAPTAIN-C, CNM pain E11.22 Type 2 diabetes mellitus w diabetic chronic kidney disease Z11.59 Encounter for screening for other viral diseases Z12.5 Encounter for screening for malignant neoplasm of prostate Office Visit 08/08/2018 8:00a Podiatry Office Constantine Vann, E11.9 Type 2 diabetes DPM mellitus without complications I70.203 Unsp athscl [place] of extremities, bilateral legs B35.1 Tinea [...] Office Visit 06/17/2018 10:30a Primary Care Maggie Medel, M54.5 Low back Office MS, PATROL CAPTAIN-C, CNM pain E66.09 Other obesity due to excess calories Z71.6 Tobacco abuse counseling Office Visit 06/10/2018 8:00a Oncology Office Yamini, E61.1 Iron deficiency DO Jessi E53.9 Vitamin B deficiency, unspecified E55.9 Vitamin D deficiency, unspecified Assessments Date Code Description Provider 10/26/2018 I35.0 Nonrheumatic aortic (valve) Moris Dan., PA stenosis 10/26/2018 F17.210 Nicotine dependence, cigarettes, Betsy Dans B., PA uncomplicated 10/26/2018 E78.2 Mixed hyperlipidemia Betsy Dans B., PA 10/26/2018 R00.0 Tachycardia, unspecified Valorie Danlyss B., PA 10/26/2018 G47.33 Obstructive sleep apnea (adult) Moris Dan, PA (pediatric) 10/26/2018 E66.01 Morbid (severe) obesity due to Moris Dan, PA excess calories 10/11/2018 I70.203 Unspecified atherosclerosis of Constantine Vann DPM [place] of extremities, bilateral legs 10/11/2018 E11.9 Type 2 diabetes mellitus without Constantine Vann DPM complications 10/11/2018 B35.1 Tinea unguium Constantine Vann DPM 10/05/2018 D64.9 Anemia, unspecified Chelsey Zeng MD 10/05/2018 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 09/30/2018 S80.921A Unspecified superficial injury of Dee Dee Fleming PA right lower leg, initial encounter 09/29/2018 J96.11 Chronic respiratory failure with Varun Aranda MD hypoxia 09/29/2018 J96.11 Chronic respiratory failure with Devora Dawson PA hypoxia 09/28/2018 D64.9 Anemia, unspecified VinayJessi andres, DO 09/28/2018 D64.9 Anemia, unspecified Oncology Nurse 09/28/2018 E61.1 Iron deficiency Jessi Kc, DO 09/28/2018 E61.1 Iron deficiency Oncology Nurse 09/16/2018 E11.22 Type 2 diabetes mellitus with Lizy, Maggie, MS, PATROL CAPTAIN-C , diabetic chronic kidney diseas CN 09/16/2018 R05 Cough Svetlanaen, Maggie, MS, PATROL CAPTAIN-C, CNM 09/16/2018 R06.2 Wheezing Lizy, Maggie, MS, PATROL CAPTAIN-C, CN 09/16/2018 J06.9 Acute upper respiratory infection, Jayla Medelline, MS, PATROL CAPTAIN-C, unspecified CN 09/16/2018 R06.02 Shortness of breath Lizy, Maggie, MS, PATROL CAPTAIN-C, CN 09/16/2018 R63.4 Abnormal weight loss Jayla Medelline, MS, PATROL CAPTAIN-C, CN 09/07/2018 R05 Cough Lizy, Maggie, MS, PATROL CAPTAIN-C, CN 09/07/2018 E11.22 Type 2 diabetes mellitus with Lizy, Maggie, MS, PATROL CAPTAIN-C , diabetic chronic kidney diseas [facility] 09/07/2018 R06.2 Wheezing Lizy, Maggie, MS, PATROL CAPTAIN-C, CN 09/07/2018 J06.9 Acute upper respiratory infection, Lizy, Maggie, MS, PATROL CAPTAIN-C, unspecified [facility] 09/07/2018 R06.02 Shortness of breath Jayla Medelline, MS, PATROL CAPTAIN-C, CN 09/07/2018 E66.01 Morbid (severe) obesity due to Maggie Medel, MS, PATROL CAPTAIN- C, excess calories [facility] 09/07/2018 Z71.6 Tobacco abuse counseling Maggie Medel, MS, PATROL CAPTAIN-C, CN 09/02/2018 G47.33 Obstructive sleep apnea (adult) [...] Chowdhury MD 08/22/2018 M54.5 Low back pain Lizy, Maggie, MS, PATROL CAPTAIN-C, CN 08/22/2018 E11.22 Type 2 diabetes mellitus with Gagen, Maggie, MS, PATROL CAPTAIN-C , diabetic chronic kidney diseas [facility] 08/22/2018 Z11.59 Encounter for screening for other Gagen, Maggie, MS, PATROL CAPTAIN-C, viral diseases [facility] 08/22/2018 Z12.5 Encounter for screening for Gagen, Maggie, MS, PATROL CAPTAIN-C, malignant neoplasm of prostate [facility] 08/19/2018 E55.9 Vitamin D deficiency, unspecified Jessi Kc, DO 08/19/2018 E55.9 Vitamin D deficiency, unspecified Oncology Nurse 08/19/2018 E61.1 Iron deficiency Jessi Kc, DO 08/19/2018 E61.1 Iron deficiency Oncology Nurse 08/19/2018 E53.9 Vitamin B deficiency, unspecified Jessi Kc, DO 08/19/2018 E53.9 Vitamin B deficiency, unspecified Oncology Nurse 08/09/2018 E66.09 Other obesity due to excess Gagkristin, Maggie, MS, PATROL CAPTAIN-C, calories [facility] 08/09/2018 Z72.0 Tobacco use Svetlanaen, Maggie, MS, PATROL CAPTAIN-C, [facility] 08/09/2018 M54.5 Low back pain Maggie Medel, MS, PATROL CAPTAIN-C, CNM 08/09/2018 E55.9 Vitamin D deficiency, unspecified Maggie Medel, , PATROL CAPTAIN-C, CNM 08/09/2018 N18.3 Chronic kidney disease, stage 3 Maggie Medel, MS, PATROL CAPTAIN- C, (moderate) CNM 08/08/2018 E11.9 Type 2 diabetes mellitus without Constantine Vann, [place] complications 08/08/2018 I70.203 Unspecified atherosclerosis of EdwarConstantine, [facility] [place], bilateral legs 08/08/2018 B35.1 Tinea unguium EdwarConstantine, DP 08/08/2018 S90.811A Abrasion, right foot, initial Constantine Vann, DP encounter 08/08/2018 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 07/07/2018 K42.9 Umbilical hernia without [place] obstruction or gangrene M.D. 07/07/2018 Z72.0 Tobacco use [place] M.D. 06/17/2018 M54.5 Low back pain Maggie Medel, MS, PATROL CAPTAIN-C, CNM 06/17/2018 E66.09 Other obesity due to excess Maggie Medel, MS, PATROL CAPTAIN-C, calories [facility] 06/17/2018 Z71.6 Tobacco abuse counseling Maggie Medel MS, PATROL CAPTAIN-C, CN 06/10/2018 E61.1 Iron deficiency Cameron Kct, DO 06/10/2018 E53.9 Vitamin B deficiency, unspecified Cameron Kct, DO 06/10/2018 E55.9 Vitamin D deficiency, unspecified Cameron Kct, DO 06/02/2018 Z00.00 Encounter for general adult [...] MD 05/26/2018 D64.9 Anemia, unspecified Jessi Kc, 05/26/2018 D64.9 Anemia, unspecified Oncology Nurse 05/26/2018 E61.1 Iron deficiency Jessi Kc, 05/26/2018 E61.1 Iron deficiency Oncology Nurse 05/24/2018 I70.203 Unspecified atherosclerosis of Constantine Vann DPM [place] [facility] 05/24/2018 E11.9 Type 2 diabetes mellitus without Constantine Vann DPM complications 05/24/2018 B35.1 Tinea unguium Constantine Vann DPM Plan of Treatment Future Appointment(s):12/21/2018 1:00 pm - Constantine Vann DPM at Podiatry Hysdqi7812/02/2018 8:00 am - Oncology Nurse at Oncology Ejihpc9112/06/2018 11:00 am - Jessi Kc DO at Oncology Djeqgq5809/05/2019 9:00 am - Devora Dawson PA at Reiqczgdqfr16/30/2019 8:30 am - Maggie Medel MS, PATROL CAPTAIN-C, CNM at Primary Care Jplqcr1010/26/2018 - Moris Dan, PAI35.0 Nonrheumatic aortic (valve) stenosisNew Orders:Echocardiogram, Transesophageal, Ordered: Comments:Agreeable for evaluation with LEONARDO.F17.210 Nicotine dependence, cigarettes, uncomplicatedComments:Told to stop smoking. Offered help, but patient does not want help at this time.E78.2 Mixed hyperlipidemiaComments:With the DM, would recommend statin for endothelial stabilization. Will defer to PCP.R00.0 Tachycardia, unspecifiedComments:Monitor. Will assess LVF at upcoming LEONARDO.G47.33 Obstructive sleep apnea (adult) (pediatric)E66.01 Morbid (severe) obesity due to excess caloriesComments:Encouraged to continue with diet and weight loss efforts.AllFollow up:Please schedule LEONARDO and follow up after Functional Status Functional Condition Comment Date Status [...] may not be option Dr. Wong only [address] [place] [address] [phone]
--- OUTSIDE RECORDS SUMMARY | 2018-11-19 10:06 | XMS REPORT | Continuity of Care Document ---
:1950 External Reference #:[id number] Author Name Iker Benitez M.D. (transmitted by agent of provider Sheila Recinos) Address [address] [place] [address] Care Team Providers Name Role Phone Manoj BULLARD, Varun Care Team Information Fraud Examiner [phone] Problems Active Problems Provider Date Obstructive sleep [...] SIG Qnty Indications Ordering Provider Date Ipratropium Ione 2 squirts each 30ml Iker Benitez M.D. 04/06/2018 0.03% nostril 2 times a Solution day as needed Glimepiride bid Unknown 4mg Tablets Potassium Gluconate qday Unknown 99mg Tablets Aspirin qday Unknown 81mg Tablets Vitamin D qweek Unknown (Ergocalciferol) [id number] Capsules Vitamin C Qday Unknown 1000mg Tablets [...] by mouth every Unknown 20mg Capsules day DR Immunizations Description No Information Available Vital Signs [...] Oximetry 90 % Body Temperature 97.2 F Vega Score 7 Pain Level 7 Results Description No Information Available Procedures Description No Information Available Medical Devices Description No Information Available Encounters Description No Information Available Assessments Description No Information Available Plan of Treatment No Information Available Functional Status Description No Information Available Mental Status Description No Information Available Referrals Description No Information Available
--- OUTSIDE RECORDS SUMMARY | 2018-11-19 10:06 | XMS REPORT | Continuity of Care Document ---
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 Problems Active Problems Provider Date Acute diastolic heart failure Ousmane Mustafa MD Onset: 07/19/2015 Atrial flutter Ousmane Mustafa MD Onset: 07/19/2015 Paroxysmal atrial fibrillation Ousmane Mustafa MD Onset: 07/19/2015 Anemia Jessi Kc DO Onset: 09/07/2016 Iron deficiency Jessi Kc DO Onset: 09/07/2016 Combined systolic and diastolic Linda Lujan, MSN, 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 BEVEL MILL OPERATOR Aortic valve disorder Linda Lujan, MSN, Onset: 10/14/2016 BEVEL MILL OPERATOR Chronic kidney disease stage 3 Linda Lujan, MSN, Onset: 10/14/2016 BEVEL MILL OPERATOR Type 2 diabetes mellitus Kathia Chowdhury MD [...] Chowdhury, 04/02/2017 32G X 6 mm Misc ([place]) Torsemide 2 by mouth twice I50.32 Froy, 03/09/2017 20mg Tablets a day prn Oskar Parks M.D., [facility] Metolazone 1 tab by mouth 30tabs I50.40 Linda Lujan 10/14/2016 2.5mg Tablets 1/2 hour prior to GEOFF Burleson, in the morning BEVEL MILL OPERATOR torsemide for weight gain of 2-3 over [...] By Mouth Every GEOFF Burleson, 24HR Day BEVEL MILL OPERATOR SSD Apply A Thin Unknown 1% Cream [...] Gagen, 4mg Tablets every day MS Maggie, BEVEL MILL OPERATOR-C, CNM Baby Aspir 1 by mouth every [...] 1units J06.9 Kathia Chowdhury 2018 - Nasal [place] 24- Hour in each nostril 09/16/2018 in morning 50mcg/Act Suspension Naproxen Sodium Take one every 30tabs M54.5 Kathia Chowdhury, 06/17/2018 - 275mg 12 hrs for back 09/01/2018 Tablets pain Ergocalciferol 1 cap by mouth 2caps Yamini 06/10/2018 - [id number] every week DO Jessi Unknown Capsules Medications Administered in Office Medication SIG Qnty Indications Ordering Provider Date Vitamin B12 Injection 1000 Oncology Nurse 12/03/2017 mcg/Ml Injection Vitamin B12 Injection 1000 Jessi Kc DO 11/05/2017 mcg/Ml Injection Vitamin B12 Injection 1000 Yelitza Veloz NP 06/28/2017 mcg/Ml Injection Theraputic Or Diagnostic Yelitza Veloz NP 06/28/2017 Injection Injection Immunizations CPT Code Status Date Vaccine Lot # [id number] Given 06/02/2018 Pneumovax Injection [id number] Given 10/14/2017 Influenza High Dose [id number] Given 12/22/2016 Tdap injection [id number] Vital Signs Date Vital Result Comment 10/26/2018 7:59am BP Systolic Sitting Right Arm 126 mmHg BP Diastolic Sitting Right Arm 81 mmHg Heart Rate 107 /min Respiratory Rate 20 /min Height 71 inches 5'11", As per patient Weight 370.00 lb BMI (Body Mass Index) 51.6 kg/m2 BSA (Body Surface Area) 2.74 m2 [place] body weight in kilograms 78 kg O2 % BldC Oximetry 96 % ra 10/11/2018 7:51am BP Systolic 137 mmHg BP Diastolic 75 mmHg Body Temperature 97.9 F Heart Rate 95 /min Height 71 inches 5'11", As per patient Weight 373.00 lb BMI (Body Mass Index) 52.0 kg/m2 BSA (Body Surface Area) 2.75 m2 [place] body weight in kilograms 78 kg O2 % BldC Oximetry 96 % Results Test Date Facility Test Result H/L Range Note Nocturnal Oximetry 09/29/2018 [facility] Low Oximetry 85 % Low 93-98 1 [address] [place] [address] [phone] Fio2 21 Normal 21-100 Heart Rate 70 BPM Duration Of Study 317 MINUTES Total Time Below 88% 24.9 MINUTES Continuous Oximetry 09/29/2018 [facility] Oximetry 93 % Normal 93-98 [address] [place] [address] [phone] Fio2 21 Normal 21-100 Heart Rate 70 BPM Patient Status RESTING CBS W/Automated 09/28/2018 [facility] White Blood 7.9 K/uL Normal 3.4-10.[address] Count [place], [place] [id number] [phone] Red Blood Count 4.80 M/uL Normal 4.20-5.80 [...] 33.0-73.0 Lymph % 13.8 % Low 20.0-42.0 Glenn % 8.7 % Normal 0.0-10.0 Eo% 2.8 % Normal 0.0-6.6 Bas% 0.5 % Normal 0.0-1.1 Immature Grans 1.5 % Normal 0.0-5.0 NRBC % 0.0 /100WBC < 10/ 100 WBC Neut# 5.74 K/uL Normal 1.8-7.0 Lymph # 1.09 K/uL Normal 1.0-4.0 Glenn # 0.69 K/uL Normal 0.0-0.8 Eos # 0.22 K/uL Normal 0.0-0.5 Baso # 0.04 K/uL Normal 0.0-0.1 Immature Grans Absolute 0.12 K/uL NRBC # 0.00 K/uL Comprehensive Metabolic 09/28/2018 [facility] Glucose 135 mg/dL High 74-106 Panel [address] [place] [address] [phone] BUN 23 mg/dL High 7-18 Creatinine 1.6 [...] U/L Normal 45-117 Vitamin B12 And 09/28/2018 [facility] Vitamin B12 858 pg/mL Normal 193-986 Folate [address] [place] [address] [phone] Folic Acid 11.5 ng/mL Normal 3.1-17.5 Iron-Tibc-%Sat 09/28/2018 [facility] Serum Iron 56 g/dL Low 65-175 [address] [place] [address] [phone] Total Iron Binding Capacity 317 g/dL Normal 250-450 Transferrin %Saturation 18 % Normal 12-57 Laboratory test 09/28/2018 [facility] Ferritin 84 Normal 26-[address] ng/[place] [address] [phone] Glycohemoglobin 08/19/2018 [facility] Glycohemoglobin 7.4 % High 4.2-6.3 4, A1c [address] (A1c) [address] [place] [address] [phone] eAG 166 mg/dL Laboratory test 08/19/2018 [facility] Prostate 0.57 ng/mL < 4.0 [address] [place] [address] [phone] Hepatitis C Antibody < 0.1 s/corat 0.0-0.9 7 Basic Metabolic Panel 08/19/2018 [facility] Glucose 238 mg/dL High 74-[address] [place] [address] [phone] BUN 19 mg/dL High 7-18 Creatinine 1.3 mg/dL Normal 0.6-1.3 Glom Filtration Rate, Estimate 59 mL/min >60 If >60 mL/min >60 8 BUN/Creat 14.6 ratio Sodium 137 mmol/L Normal 136-145 Potassium 5.1 mmol/L Normal 3.5-5.1 Chloride 105 mmol/L Normal 98-107 Carbon Dioxide 24 mmol/L Normal 21-32 Anion Gap 8 mEq/L Normal 8-16 Calcium 9.1 mg/dL Normal 8.5-10.1 CBS W/Automated 07/22/2018 [facility] White Blood 7.5 K/uL Normal 3.4-10.5 [address] [place] [address] [phone] Red Blood Count 5.11 M/uL Normal 4.20-5.80 [...] 33.0-73.0 Lymph % 15.7 % Low 20.0-42.0 Glenn % 9.4 % Normal 0.0-10.0 Eo% 2.9 % Normal 0.0-6.6 Bas% 0.8 % Normal 0.0-1.1 Immature Grans 2.0 % Normal 0.0-5.0 NRBC % 0.0 /100WBC < 10/ 100 WBC Neut# 5.21 K/uL Normal 1.8-7.0 Lymph # 1.18 K/uL Normal 1.0-4.0 Glenn # 0.71 K/uL Normal 0.0-0.8 Eos # 0.22 K/uL Normal 0.0-0.5 Baso # 0.06 K/uL Normal 0.0-0.1 Immature Grans Absolute 0.15 K/uL NRBC # 0.00 K/uL Comprehensive Metabolic 07/22/2018 [facility] Glucose 209 mg/dL High 74-106 Panel [address] [place] [address] [phone] BUN 27 mg/dL High 7-18 Creatinine 1.5 [...] 53 U/L Normal 45-117 Laboratory test 07/22/2018 [facility] Ferritin 112 ng/mL Normal 26-388 finding [address] [place], [place] [address] [phone] Iron-Tibc-%Sat 07/22/2018 [facility] Serum Iron 75 g/dL Normal 65-175 [address] [place] [address] [phone] Total Iron Binding Capacity 334 g/dL Normal 250-450 Transferrin %Saturation 22 % Normal 12-57 Laboratory 07/22/2018 [facility] Vitamin 28.6 Low 30.0-100.0 11 test finding [address] D,25-Hydroxy ng/mL [place], [place] [address] [phone] Vitamin B12 07/22/2018 [facility] Vitamin B12 791 Normal 193-986 And Folate [address] [facility] pg/[place] [address] [phone] Folic Acid 12.2 ng/mL Normal 3.1-17.5 LDL Cholesterol Profile 05/26/2018 [facility] Cholesterol 129 mg/dL <200 12 [address] [place], [place] [address] [phone] Triglycerides 222 mg/dL High <150 13 HDL Cholesterol 38 mg/dL Low >40 14 LDL-Cholesterol 47 mg/dL < 100 15 CBS W/Automated 05/26/2018 [facility] White 7.3 K/uL Normal 3.4-10.[address] [place] [address] Count [phone] Red Blood Count 5.24 M/uL Normal 4.20-5.80 [...] 33.0-73.0 Lymph % 15.2 % Low 20.0-42.0 Glenn % 8.2 % Normal 0.0-10.0 Eo% 3.1 % Normal 0.0-6.6 Bas% 0.7 % Normal 0.0-1.1 Immature Grans 1.0 % Normal 0.0-5.0 NRBC % 0.0 /100WBC < 10/ 100 WBC Neut# 5.25 K/uL Normal 1.8-7.0 Lymph # 1.11 K/uL Normal 1.0-4.0 Glenn # 0.60 K/uL Normal 0.0-0.8 Eos # 0.23 K/uL Normal 0.0-0.5 Baso # 0.05 K/uL Normal 0.0-0.1 Immature Grans Absolute 0.07 K/uL NRBC # 0.00 K/uL Comprehensive Metabolic 05/26/2018 [facility] Glucose 190 mg/dL High 74-106 Panel [address] [place], [place] [address] [phone] BUN 21 mg/dL High 7-18 Creatinine 1.5 mg/dL High 0.6-1.3 Glom Filtration Rate, Estimate 50 mL/min >60 If 60 mL/min >60 17 BUN/Creat 14.0 ratio Sodium 139 mmol/L Normal [...] U/L Normal 45-117 Vitamin B12 And 05/26/2018 [facility] Vitamin B12 836 pg/mL Normal 193-[address] [place] [address] [phone] Folic Acid 16.9 ng/mL Normal 3.1-17.5 Laboratory 05/26/2018 [facility] Vitamin 25.7 Low 30.0-100.0 18 test finding [address] D,25-Hydroxy ng/[place] [address] [phone] Iron-Tibc-%Sa 05/26/2018 [facility] Serum Iron 79 Normal 65-[address] g/[place] [address] [phone] Total Iron Binding Capacity 352 g/dL Normal 250-450 Transferrin %Saturation 22 % Normal 12-57 Laboratory test 05/26/2018 [facility] Ferritin 112 Normal 26-[address] ng/[place] [address] [phone] Glycohemoglobin 05/26/2018 [facility] Glycohemoglobin 7.5 % High 4.2-6.3 19, A1c [address] (A1c) 20 [place] [address] [phone] eAG 169 mg/dL 1 J96.11 CHRONIC RESPIRATORY FAILURE WITH HYPOXIA [...] for more aggressive treatment of glycemia. The [place] [employer] Association recommends that a primary goal [...] methods cannot be used interchangeably. Method: Siemens Dimension [place] Chemiluminescent immunoassay. 7 INFCE Result Units: s/co ratio Negative: < 0.8 Indeterminate: 0.8 - 0.9 Positive: > 0.9 The CDC recommends that a positive HCV antibody result be followed up with a HCV Nucleic Acid Amplification test (039308). Performed at: - [facility] [id number] Military Professional: Marissa Wick MD, Phone: [phone] Note: Persistent reduction for 3 months [...] D deficiency has been defined by the [place] of [employer] and an Endocrine Society practice guideline as a level of serum 25-OH vitamin D less than 20 ng/mL (1,2). The Endocrine Society went on to further define vitamin D insufficiency as a level between 21 and 29 ng/mL (2). 1. IOM ([place] of [employer]). 2010. Dietary reference intakes for calcium and D. [place]: The National Academies Press. 2. Ziyad MF, Shivani NC, Nikkie-Andrew LAWRENCE, et al. Evaluation, treatment, and prevention of vitamin D deficiency: an Endocrine Society clinical practice guideline. JCEM. 2010; 96(7):1911-30. Performed at: - [facility] [id number] Military Professional: Marissa Wick MD, Phone: [phone] Reference Guidelines*: Desirable: ........... < 200 mg/dL Borderline High: ..... 200-239 mg/dL High: ................ >= 240 mg/dL * The National Cholesterol Education Program (NCEP) 13 Reference Guidelines*: Normal: ............. < 150 mg/dL Borderline High: .... 150-199 mg/dL High: ............... 200-499 mg/dL Very High: .......... > 500 mg/dL * Source: National Cholesterol Education Program (NCEP) 14 Reference Guidelines*: Low HDL: ..... < 40 mg/dL Normal: ..... 40-60 mg/dL Desirable: ... > 60 mg/dL *The National Cholesterol Education Program(NCEP) 15 Reference Guidelines*: Optimal:........... <100 mg/dL Near Optimal....... 100-129 mg/dL Borderline High.... 130-159 mg/dL High............... 160-189 mg/dL Very High.......... >=190 mg/dL * Source: National Cholesterol Education Program (NCEP) 16 D64.9 E61.1 D64.9 E61.1 I10 E78.2 17 Note: Persistent reduction for 3 months or more in an eGFR <60 mL/min/1.73 m2 defines CKD. Patients with eGFR values >/=60 mL/min/1.73 m2 may also have CKD if evidence of persistent proteinuria is present. The original MDRD equation for estimated GFR is not valid for patients less than 18 years of age. Additional information may be found at www.kdoqi.org. 18 Vitamin D deficiency has been defined by the [place] [employer] and an Endocrine Society practice guideline as a level of serum 25-OH vitamin D less than 20 ng/mL (1,2). The Endocrine Society went on to further define vitamin D insufficiency as a level between 21 and 29 ng/mL (2). 1. IOM ([place] of [employer]). 2010. Dietary reference intakes for calcium and D. [place]: The National Academies Press. 2. Ziyad MF, Shivani NC, Loc LAWRENCE, et al. Evaluation, treatment, and prevention of vitamin D deficiency: an Endocrine Society clinical practice guideline. JCEM. 2010; 96(7):1911-30. Performed at: RN - [facility] [address] [id number] Military Professional: Marisas Wick MD, Phone: [phone] 19 O56.7 E61.1 20 Elevated levels of HbA1c suggest the need for more aggressive treatment of glycemia. The [place] Diabetes Association recommends that a primary goal of therapy should be a HbA1c of <7% and that physicians should re-evaluate the treatment regimen in patients with HbA1c values consistently >8%. Procedures Date Code Description Status 10/26/2018 92159 EKG-Tracing And Report Completed 10/11/2018 82468 Debridement Nails Any Method 6 Or More Completed 09/29/2018 48664 Bronchospasm Provocation Evaluation Multi Spirometric Completed Determinati 09/29/2018 62882 Spirometry Completed 09/07/2018 13772 Pressurized/Non-Pressurized Inhalation Treatment,Acute Completed Obstructio 09/02/2018 96838 Pulse Oximetry With Activity Completed 08/08/2018 22876 Debridement Nails Any Method 6 Or More Completed 05/24/2018 77514 Debridement Nails Any Method 6 Or More Completed 01/08/2018 [id number] Diabetic Foot Exam Completed 01/11/2017 96230808 Flexible Sigmoidoscopy Completed 01/23/2016 [id number] Colonoscopy Completed 05/29/2005 15441364 Colonoscopy Completed Medical Devices Description No Information [...] Care Lizy, E11.22 Type 2 diabetes Office Maggie, MS, mellitus w BEVEL MILL OPERATOR-C, CNM diabetic chronic kidney disease R05 Cough R06.2 Wheezing J06.9 Acute upper respiratory infection, unspecified R06.02 Shortness of breath R63.4 Abnormal weight loss Office Visit 09/07/2018 9:00a Primary Care Office Lizy Maggie, MS, R05 Cough BEVEL MILL OPERATOR-C, CNM E11.22 Type 2 diabetes mellitus w [...] Maggie Medel, M54.5 Low back Office MS, BEVEL MILL OPERATOR-C, CNM pain E11.22 Type 2 diabetes mellitus w diabetic chronic kidney disease Z11.59 Encounter for screening for other viral diseases Z12.5 Encounter for screening for malignant neoplasm of prostate Office Visit 08/08/2018 8:00a Podiatry Office Constantine Vann, E11.9 Type 2 diabetes DPM mellitus without complications I70.203 Unsp athscl [place] arteries of extremities, bilateral legs B35.1 Tinea [...] use Office Visit 06/17/2018 10:30a Primary Care Lizy Maggie, M54.5 Low back Office MS, BEVEL MILL OPERATOR-C, CNM pain E66.09 Other obesity due to excess calories Z71.6 Tobacco abuse counseling Office Visit 06/10/2018 8:00a Oncology Office Yamini, E61.1 Iron deficiency DO Jessi E53.9 Vitamin B deficiency, unspecified E55.9 Vitamin D deficiency, unspecified Assessments Date Code Description Provider 10/26/2018 I35.0 Nonrheumatic aortic (valve) Betsy Dans B., PA stenosis 10/26/2018 F17.210 Nicotine dependence, cigarettes, Moris Dan B., PA uncomplicated 10/26/2018 E78.2 Mixed hyperlipidemia Valorie Danlyss B., PA 10/26/2018 R00.0 Tachycardia, unspecified Ni, Marlyss B., PA 10/26/2018 G47.33 Obstructive sleep apnea (adult) Moris Dan B., PA (pediatric) 10/26/2018 E66.01 Morbid (severe) obesity due to Moris Dan., PA excess calories 10/11/2018 I70.203 Unspecified atherosclerosis of Constantine Vann DPM [place] arteries of extremities, bilateral legs 10/11/2018 E11.9 [...] 2 diabetes mellitus with Lizy, Maggie, MS, BEVEL MILL OPERATOR-C , diabetic chronic kidney diseas CNM 09/16/2018 R05 Cough Svetlanaen, Maggie, MS, BEVEL MILL OPERATOR-C, CNM 09/16/2018 R06.2 Wheezing Lizy, Maggie, MS, BEVEL MILL OPERATOR-C, CNM 09/16/2018 J06.9 Acute upper respiratory infection, Lizy, Maggie, MS, BEVEL MILL OPERATOR-C, unspecified CN 09/16/2018 R06.02 Shortness of breath Lizy, Maggie, MS, BEVEL MILL OPERATOR-C, CN 09/16/2018 R63.4 Abnormal weight loss Jayla Medelline, MS, BEVEL MILL OPERATOR-C, CN 09/07/2018 R05 Cough Lizy, Maggie, MS, BEVEL MILL OPERATOR-C, CNM 09/07/2018 E11.22 Type 2 diabetes mellitus with Gagkristin, Maggie, MS, BEVEL MILL OPERATOR-C , diabetic chronic kidney diseas [facility] 09/07/2018 R06.2 Wheezing Lizy, Maggie, MS, BEVEL MILL OPERATOR-C, CNM 09/07/2018 J06.9 Acute upper respiratory infection, Gagkristin, Maggie, MS, BEVEL MILL OPERATOR-C, unspecified CN 09/07/2018 R06.02 Shortness of breath Jayla Medelline, MS, BEVEL MILL OPERATOR-C, CNM 09/07/2018 E66.01 Morbid (severe) obesity due to Jayla Medelline, MS, BEVEL MILL OPERATOR- C, excess calories CN 09/07/2018 Z71.6 Tobacco abuse counseling Jayla Medelline, MS, BEVEL MILL OPERATOR-C, CNM 09/02/2018 G47.33 Obstructive sleep apnea (adult) [...] M54.5 Low back pain Maggie Medel, MS, BEVEL MILL OPERATOR-C, [facility] 08/22/2018 E11.22 Type 2 diabetes mellitus with Maggie Medel, MS, BEVEL MILL OPERATOR-C , diabetic chronic kidney diseas [facility] 08/22/2018 Z11.59 Encounter for screening for other Maggie Medel, MS, BEVEL MILL OPERATOR-C, viral diseases [facility] 08/22/2018 Z12.5 Encounter for screening for Maggie Medel, MS, BEVEL MILL OPERATOR-C, malignant neoplasm of prostate [facility] 08/19/2018 E55.9 Vitamin D deficiency, unspecified Jessi Kc, DO 08/19/2018 E55.9 Vitamin D deficiency, unspecified Oncology Nurse 08/19/2018 E61.1 Iron deficiency Jessi Kc, DO 08/19/2018 E61.1 Iron deficiency Oncology Nurse 08/19/2018 E53.9 Vitamin B deficiency, unspecified Jessi Kc, DO 08/19/2018 E53.9 Vitamin B deficiency, unspecified Oncology Nurse 08/09/2018 E66.09 Other obesity due to excess Maggie Medel, MS, BEVEL MILL OPERATOR-C, calories [facility] 08/09/2018 Z72.0 Tobacco use Maggie Medel, MS, BEVEL MILL OPERATOR-C, CNM 08/09/2018 M54.5 Low back pain Maggie Medel, MS, BEV[employer] MILL OPERATOR-C, CNM 08/09/2018 E55.9 Vitamin D deficiency, unspecified Maggie Medel, MS, BEVEL MILL OPERATOR-C, CNM 08/09/2018 N18.3 Chronic kidney disease, stage 3 Maggie Medel, MS, BEVEL MILL OPERATOR- C, (moderate) CNM 08/08/2018 E11.9 Type 2 diabetes mellitus without Constantine Vann, [place] complications 08/08/2018 I70.203 Unspecified atherosclerosis of Constantine Vann, [facility] [place] arteries of extremities, bilateral legs 08/08/2018 B35.1 Tinea unguium Constantine Vann, [facility] 08/08/2018 S90.811A Abrasion, right foot, initial Constantine Vann, [facility] encounter 08/08/2018 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 07/07/2018 K42.9 Umbilical hernia without [place] obstruction or gangrene M.D. 07/07/2018 Z72.0 Tobacco use [place] M.D. 06/17/2018 M54.5 Low back pain Maggie Medel, MS, BEVEL MILL OPERATOR-C, CNM 06/17/2018 E66.09 Other obesity due to excess Lizy, Maggie, MS, BEVEL MILL OPERATOR-C, calories [facility] 06/17/2018 Z71.6 Tobacco abuse counseling Maggie Medel, MS, BEVEL MILL OPERATOR-C, CNM 06/10/2018 E61.1 Iron deficiency Jessi Kc, 06/10/2018 E53.9 Vitamin B deficiency, unspecified Jessi Kc, 06/10/2018 E55.9 Vitamin D deficiency, unspecified Jessi [...] Chowdhury MD 05/26/2018 D64.9 Anemia, unspecified Jessi Kc DO 05/26/2018 D64.9 Anemia, unspecified Oncology Nurse 05/26/2018 E61.1 Iron deficiency Jessi Kc DO 05/26/2018 E61.1 Iron deficiency Oncology Nurse 05/24/2018 I70.203 Unspecified atherosclerosis of Constantine Vann DPM [place] arteries of extremitie 05/24/2018 E11.9 Type 2 diabetes mellitus without Constantine Vann DPM complications 05/24/2018 B35.1 Tinea unguium Constantine Vann DPM Plan of Treatment Future Appointment(s):12/21/2018 1:00 pm - Constantine Vann DPM at Podiatry Tviguj3812/02/2018 8:00 am - Oncology Nurse at Oncology Lnatro1212/06/2018 11:00 am - Jessi Kc DO at Oncology Ylimqs7609/05/2019 9:00 am - Devora Dawson PA at Dmgsghnlhxf23/30/2019 8:30 am - Maggie Medel, , BEVEL MILL OPERATOR-C, CNM at Primary Care Gfuenw3510/26/2018 - Moris Dan, PAI35.0 Nonrheumatic aortic (valve) [...] may not be option Dr. Wong only [address] [place] [address] [phone]
[2018-11-19 10:12] VITALS: BP 117/65
--- NOTE | 2018-11-19 10:24 | UC ---
Lower Extremity/Ankle HPI - HPI Summary HPI Summary: Pt is a 68 yo male with medical history of tobacco use and IDDM. Presents with 5 days progressive LLE calf pain. Feels intermittent like deep cramp or ache. No fever, chills No fall or trauma. no paresthesia. concerned leg is "little darker" No known vascular dx. Pt does not have a history of DVT. No paresthesia, recent travel. Med reviewed takes ASA 81mg - History of Current Complaint Chief Complaint: UCLowerExtremity Stated Complaint: LEFT LEG CONCERN Time Seen by Provider: 11/19/18 10:16 Hx Obtained From: Patient Onset/Duration: Gradual Onset Severity Initially: Mild Severity Currently: Moderate Pain Intensity: 7 Pain Scale Used: 0-10 Numeric - Allergies/Home Medications Allergies/Adverse Reactions: Allergies Allergy/AdvReac Type Severity Reaction Status Date / Time acetaminophen [From Percocet] Allergy Swelling Verified 10/12/18 13:48 Of Face,Lips,& Throat aspirin Allergy Nausea Verified 10/12/18 13:49 oxycodone [From Percocet] Allergy Swelling Verified 10/12/18 13:48 Of Face,Lips,& Throat Home Medications: Home Medications Ascorbic Acid [C-1000] 1,000 mg PO DAILY 11/19/18 [History Confirmed 11/19/18] Dulaglutide [Trulicity] 0.75 mg SQ WEEKLY 11/19/18 [History Confirmed 11/19/18] PMH/Surg Hx/FS Hx/Imm Hx Previously Healthy: Yes Other History Of: Anticoagulant Therapy - Coumadin. Negative For: HIV, Hepatitis B, Hepatitis C - Surgical History Surgical History: Yes Surgery Procedure, Year, and Place: Both knees, L carpel tunnel, uvula removed, L foot - Family History Known Family History: Positive: Diabetes, Non-Contributory Negative: Cardiac Disease, Hypertension - Social History Occupation: Retired Lives: With Family Alcohol Use: Rare Substance Use Type: None Smoking Status (MU): Light Every Day Tobacco Smoker Type: Cigarettes Amount Used/How Often: 1/2 ppd Length of Time of Smoking/Using Tobacco: 40 + yrs Have You Smoked in the Last Year: Yes - Immunization History Most Recent Influenza Vaccination: 2016 Most Recent Tetanus Shot: OVER 5 YEARS AOG Review of Systems All Other Systems Reviewed And Are Negative: Yes Motor: Positive: Other - left calf pain Physical Exam - Summary Physical Exam Summary: Vital Signs Reviewed: Yes A+Ox3, no distress Eyes: Conjunctiva Clear ENT: Hearing grossly normal neck: supple Respiratory: Positive: No respiratory distress, No accessory muscle use Cardiovascular: skin color reflect adequate perfusion 1+ edema b/l LE 2+ DP Musculoskeletal Exam: +SLE + flex/ext knee, ankle with "pulling in left calf" + mild TTP with deep palp left calf Neurological: Positive: Alert, ambulatory without difficulty Psychological: Positive: Normal Response To Family Skin: Positive: no rash, no ecchymosis, pt with some chronic appearing skin changes. no concern for cellulitis on exam. no open wounds Triage Information Reviewed: Yes Vital Signs: Initial Vital Signs Temp 98.5 F 11/19/18 10:07 Pulse 95 11/19/18 10:07 Resp 16 11/19/18 10:07 BP 117/65 11/19/18 10:07 Pulse Ox 99 11/19/18 10:07 Lower Extremity Course/Dx - Course Course Of Treatment: Pt presents to UC with left calf pain x 5 days Pt states deep cramp. DVT considered in differential - recomend to ED for eval pt in agreement spoke with Perla Shipman RN in ED aware - Differential Dx/Diagnosis Provider Diagnosis: Pain of left calf Discharge ED - Sign-Out/Discharge Documenting (check all that apply): Patient Departure All imaging exams completed and their final reports reviewed: No Studies - Discharge Plan Condition: Stable Disposition: HOME-RECOMMEND TO ED Patient Education Materials: Leg Pain (ED) Referrals: Kathia Chowdhury MD [Primary Care Provider] - Additional Instructions: The doctor that evaluated you today thinks that you need additional testing that can be completed the emergency department. It is recommended that you go directly to emergency department for further evaluation. This evaluation included blood work or imaging. This testing will be directed and decided by the provider that evaluates you at the emergency department. If pain becomes worse, you feel lightheaded, you have uncontrolled vomiting, or you have any other concerns while you are being driven to emergency department as recommended to pullover and contact 911. He wanted to undergo elective - Billing Disposition and Condition Condition: STABLE Disposition: Home-Recommend to ED
== END 2018-11-19 10:36 | disposition home health service (06) ==
LOC: UCCORT 09:30
DX: M79.662 Pain in left lower leg (principal); F17.210 Nicotine dependence, cigarettes, uncomplicated; Z88.5 Allergy status to narcotic agent; Z79.82 Long term (current) use of aspirin
CPT/HCPCS: 99212; G0463